=== PATIENT | female | born 1955 | race American Indian/Alaskan Native ===

== ENCOUNTER 2022-03-24 17:44 | Inpatient (IN) | payer MEDICARE ==
--- NOTE | 2022-03-24 18:28 | Emergency Department Report ---
ED Altered Mental Status HPI - General Chief Complaint: Altered Mental Status Stated Complaint: AMS Time Seen by Provider: 03/24/22 18:01 Source: patient, EMS Mode of arrival: Stretcher Limitations: Altered Mental Status - History of Present Illness Initial Comments: Patient is a 67-year-old female brought in [facility] for evaluation of altered mental status. She has history of schizophrenia and dementia. Daughter reportedly states that the last time she presented like this she had a UTI. - Related Data Home Medications Medication Instructions Recorded Confirmed Last Taken Acetaminophen [Mapap] 650 mg PO Q12H 03/25/22 03/25/22 Unknown Ferrous Sulfate [Iron 325 MG] 325 mg PO DAILY 03/25/22 03/25/22 Unknown Ibuprofen [Motrin] 800 mg PO Q4HR PRN 03/25/22 03/25/22 Unknown Lispro Insulin [HumaLOG] See Protocol SUB-Q ACHS 03/25/22 03/25/22 Unknown Metoprolol [Lopressor TAB] 50 mg PO BID 03/25/22 03/25/22 Unknown QUEtiapine [SEROquel] 100 mg PO QHS 03/25/22 03/25/22 Unknown amLODIPine [Norvasc] 5 mg PO DAILY 03/25/22 03/25/22 Unknown cloNIDine [Catapres] 0.1 mg PO Q8H PRN 03/25/22 03/25/22 Unknown diphenhydrAMINE [Benadryl CAP] 50 mg PO Q4H PRN 03/25/22 03/25/22 Unknown haloperidoL [Haloperidol] 5 mg PO Q4H PRN 03/25/22 03/25/22 Unknown hydroCHLOROthiazide [HCTZ] 25 mg PO QDAY 03/25/22 03/25/22 Unknown metFORMIN [Glucophage] 500 mg PO BID 03/25/22 03/25/22 Unknown risperiDONE [RisperDAL] 1 mg PO BID 03/25/22 03/25/22 Unknown Allergies Allergy/AdvReac Type Severity Reaction Status Date / Time No Known Allergies Allergy Unverified 03/24/22 17:59 ED Review of Systems ROS: Stated complaint: AMS Other details as noted in HPI Comment: Unobtainable due to pts medical conditions ED Past Medical Hx - Medications Home Medications: Home Medications Medication Instructions Recorded Confirmed Last Taken Type Acetaminophen [Mapap] 650 mg PO Q12H 03/25/22 03/25/22 Unknown History Ferrous Sulfate [Iron 325 MG] 325 mg PO DAILY 03/25/22 03/25/22 Unknown History Ibuprofen [Motrin] 800 mg PO Q4HR PRN 03/25/22 03/25/22 Unknown History Lispro Insulin [HumaLOG] See Protocol SUB-Q ACHS 03/25/22 03/25/22 Unknown History Metoprolol [Lopressor TAB] 50 mg PO BID 03/25/22 03/25/22 Unknown History QUEtiapine [SEROquel] 100 mg PO QHS 03/25/22 03/25/22 Unknown History amLODIPine [Norvasc] 5 mg PO DAILY 03/25/22 03/25/22 Unknown History cloNIDine [Catapres] 0.1 mg PO Q8H PRN 03/25/22 03/25/22 Unknown History diphenhydrAMINE [Benadryl CAP] 50 mg PO Q4H PRN 03/25/22 03/25/22 Unknown History haloperidoL [Haloperidol] 5 mg PO Q4H PRN 03/25/22 03/25/22 Unknown History hydroCHLOROthiazide [HCTZ] 25 mg PO QDAY 03/25/22 03/25/22 Unknown History metFORMIN [Glucophage] 500 mg PO BID 03/25/22 03/25/22 Unknown History risperiDONE [RisperDAL] 1 mg PO BID 03/25/22 03/25/22 Unknown History ED Physical Exam - General Limitations: Altered Mental Status General appearance: other (Patient is altered) - Head Head exam: Present: atraumatic, normocephalic - Neck Neck exam: Present: normal inspection - Respiratory Respiratory exam: Present: normal lung sounds bilaterally. Absent: respiratory distress - Cardiovascular Cardiovascular Exam: Present: normal rhythm, tachycardia, normal heart sounds - GI/Abdominal GI/Abdominal exam: Present: soft. Absent: distended, tenderness - Rectal Rectal exam: Present: deferred - Neurological Exam Neurological exam: Present: altered - Skin Skin exam: Present: warm, dry, intact, normal color ED Course Vital Signs 03/24/22 03/24/22 03/24/22 14:49 15:00 17:44 Temperature 97.7 F Pulse Rate 78 73 148 H Respiratory 21 20 16 Rate Blood Pressure 171/87 171/87 Blood Pressure 158/101 [Left] O2 Sat by Pulse 96 98 98 Oximetry 03/24/22 03/24/22 03/24/22 18:49 19:00 19:01 Temperature 100.4 F H Pulse Rate 122 H 123 H 126 H Respiratory 21 18 15 Rate Blood Pressure 171/87 165/93 Blood Pressure 169/93 [Left] O2 Sat by Pulse 99 88 Oximetry 03/24/22 03/24/22 03/24/22 19:15 19:30 19:45 Temperature Pulse Rate 112 H 111 H 121 H Respiratory 19 17 22 Rate Blood Pressure 173/112 153/77 172/96 Blood Pressure [Left] O2 Sat by Pulse 100 97 99 Oximetry 03/24/22 03/24/22 03/24/22 20:01 20:15 20:30 Temperature Pulse Rate 123 H 121 H 115 H Respiratory 25 H 27 H 25 H Rate Blood Pressure 180/79 180/79 193/105 Blood Pressure [Left] O2 Sat by Pulse 99 97 96 Oximetry 03/24/22 03/24/22 03/24/22 20:45 21:00 21:14 Temperature Pulse Rate 112 H 111 H 105 H Respiratory 22 17 18 Rate Blood Pressure 209/103 180/79 Blood Pressure 207/65 180/79 [Left] O2 Sat by Pulse 97 95 99 Oximetry 03/24/22 03/24/22 03/24/22 21:15 21:31 21:45 Temperature Pulse Rate 115 H 129 H 136 H Respiratory 14 20 28 H Rate Blood Pressure 169/76 147/52 137/62 Blood Pressure [Left] O2 Sat by Pulse 96 93 89 Oximetry 03/24/22 03/24/22 03/24/22 21:51 22:00 22:01 Temperature 100 F H Pulse Rate 119 H 127 H 117 H Respiratory 18 30 H 26 H Rate Blood Pressure 146/80 146/80 Blood Pressure 137/62 [Left] O2 Sat by Pulse 99 96 97 Oximetry 03/24/22 03/24/22 03/24/22 22:15 22:30 22:45 Temperature Pulse Rate 114 H 114 H 129 H Respiratory 30 H 32 H 26 H Rate Blood Pressure 150/84 193/99 182/89 Blood Pressure [Left] O2 Sat by Pulse 85 97 97 Oximetry 03/24/22 03/24/22 03/24/22 23:00 23:15 23:26 Temperature Pulse Rate 116 H 116 H 122 H Respiratory 21 27 H Rate Blood Pressure 156/74 138/81 138/67 Blood Pressure [Left] O2 Sat by Pulse 97 97 Oximetry 03/24/22 03/24/22 03/25/22 23:31 23:45 00:01 Temperature Pulse Rate 105 H 126 H 128 H Respiratory 18 28 H 20 Rate Blood Pressure 138/67 172/95 160/78 Blood Pressure [Left] O2 Sat by Pulse 97 99 99 Oximetry 03/25/22 03/25/22 03/25/22 00:15 00:31 00:45 Temperature Pulse Rate 110 H 117 H 111 H Respiratory 21 24 21 Rate Blood Pressure 171/69 186/72 175/93 Blood Pressure [Left] O2 Sat by Pulse 98 Oximetry 03/25/22 03/25/22 03/25/22 01:01 01:15 01:30 Temperature Pulse Rate 119 H 124 H 128 H Respiratory 21 21 21 Rate Blood Pressure 148/84 171/90 173/86 Blood Pressure [Left] O2 Sat by Pulse Oximetry 03/25/22 03/25/22 03/25/22 01:45 02:01 02:08 Temperature Pulse Rate 107 H 135 H Respiratory 25 H Rate Blood Pressure 162/103 134/80 120/74 Blood Pressure [Left] O2 Sat by Pulse 94 94 Oximetry 03/25/22 03/25/22 03/25/22 02:15 02:30 02:45 Temperature Pulse Rate 100 H 100 H 97 H Respiratory 17 18 17 Rate Blood Pressure 121/56 120/60 121/58 Blood Pressure [Left] O2 Sat by Pulse 95 91 92 Oximetry 03/25/22 03/25/22 03/25/22 03:00 03:16 03:30 Temperature Pulse Rate 103 H 94 H 94 H Respiratory 16 18 15 Rate Blood Pressure 114/67 122/59 Blood Pressure [Left] O2 Sat by Pulse 91 91 93 Oximetry 03/25/22 03/25/22 03/25/22 03:45 04:00 04:15 Temperature Pulse Rate 90 98 H 94 H Respiratory 14 17 15 Rate Blood Pressure 112/66 127/74 128/67 Blood Pressure [Left] O2 Sat by Pulse 92 92 93 Oximetry 03/25/22 03/25/22 03/25/22 04:31 04:45 05:00 Temperature Pulse Rate 97 H 96 H 96 H Respiratory 14 16 20 Rate Blood Pressure 145/77 157/76 128/72 Blood Pressure [Left] O2 Sat by Pulse 92 90 89 Oximetry 03/25/22 03/25/22 03/25/22 05:15 05:30 05:45 Temperature Pulse Rate 106 H 99 H 91 H Respiratory 21 15 17 Rate Blood Pressure 143/71 130/76 124/68 Blood Pressure [Left] O2 Sat by Pulse 89 92 92 Oximetry 03/25/22 03/25/22 03/25/22 06:00 06:15 06:30 Temperature Pulse Rate 93 H 98 H 94 H Respiratory 15 14 16 Rate Blood Pressure 131/68 133/61 127/64 Blood Pressure [Left] O2 Sat by Pulse 91 Oximetry 03/25/22 03/25/22 03/25/22 06:45 07:00 07:11 Temperature Pulse Rate 112 H 98 H 96 H Respiratory 20 16 18 Rate Blood Pressure 121/62 134/68 134/68 Blood Pressure [Left] O2 Sat by Pulse Oximetry 03/25/22 03/25/22 03/25/22 07:21 07:30 07:41 Temperature Pulse Rate 97 H 102 H 90 Respiratory 15 14 16 Rate Blood Pressure 142/70 149/75 149/75 Blood Pressure [Left] O2 Sat by Pulse Oximetry 03/25/22 03/25/22 03/25/22 07:51 08:00 08:33 Temperature Pulse Rate 96 H 97 H Respiratory 10 L 12 Rate Blood Pressure 148/80 161/71 161/71 Blood Pressure [Left] O2 Sat by Pulse 90 Oximetry 03/25/22 08:39 Temperature 98.6 F Pulse Rate Respiratory 18 Rate Blood Pressure 195/87 Blood Pressure [Left] O2 Sat by Pulse Oximetry - Lab Data Result diagrams: 03/26/22 04:47 03/27/22 04:38 Lab Results 03/24/22 03/24/22 03/24/22 Range/Units 18:58 18:58 Unknown WBC 11.2 H (4.5-11.0) K/mm3 RBC 4.03 (3.65-5.03) M/mm3 Hgb 8.8 L (10.1-14.3) gm/dl Hct 27.7 L (30.3-42.9) % MCV 69 L (79-97) fl MCH 22 L (28-32) pg MCHC 32 (30-34) % RDW 18.2 H (13.2-15.2) % Plt Count 343 (140-440) K/mm3 Lymph % (Auto) 12.0 L (13.4-35.0) % [place] % (Auto) 9.5 H (0.0-7.3) % Eos % (Auto) 0.3 (0.0-4.3) % Baso % (Auto) 0.4 (0.0-1.8) % Lymph # (Auto) 1.4 (1.2-5.4) K/mm3 [place] # (Auto) 1.1 H (0.0-0.8) K/mm3 Eos # (Auto) 0.0 (0.0-0.4) K/mm3 Baso # (Auto) 0.0 (0.0-0.1) K/mm3 Seg Neutrophils % 77.8 H (40.0-70.0) % Seg Neutrophils # 8.7 H (1.8-7.7) K/mm3 Sodium 143 (137-145) mmol/L Potassium 4.2 (3.6-5.0) mmol/L Chloride 104.2 (98-107) mmol/L Carbon Dioxide 22 (22-30) mmol/L Anion Gap 21 mmol/L BUN 38 H (7-17) mg/dL Creatinine 1.0 (0.6-1.2) mg/dL Estimated GFR 55 ml/min BUN/Creatinine Ratio 38 % Glucose 143 H (65-100) mg/dL Calcium 9.2 (8.4-10.2) mg/dL Total Bilirubin 0.30 (0.1-1.2) mg/dL Direct Bilirubin < 0.2 (0-0.2) mg/dL Indirect Bilirubin 0.1 mg/dL AST 32 (5-40) units/L ALT 16 (7-56) units/L Alkaline Phosphatase 81 (35-129) units/L Total Protein 6.8 (6.3-8.2) g/dL Albumin 3.3 L (3.9-5) g/dL Albumin/Globulin Ratio 0.9 % Urine Color Colorless (Yellow) Urine Turbidity Clear (Clear) Urine pH 5.0 (5.0-7.0) Ur Specific [place] 1.025 (1.003-1.030) Urine Protein 30 mg/dl (Negative) mg/dL Urine Glucose (UA) Negative (Negative) mg/dL Urine Ketones Negative (Negative) mg/dL Urine Blood Negative (Negative) Urine Nitrite Negative (Negative) Urine Bilirubin Negative (Negative) Urine Urobilinogen 0.2 (<2.0) mg/dL Ur Leukocyte Esterase 75 (Negative) Urine WBC (Auto) < 1.0 (0.0-6.0) /HPF Urine RBC (Auto) < 1.0 (0.0-6.0) /HPF Urine Bacteria (Auto) 1+ (Negative) /HPF - Medical Decision Making Labs reviewed. Patient given IV diltiazem for A. fib with RVR. She was also placed on an infusion for rate control. Will admit to hospitalist. Critical care attestation.: If time is entered above; I have spent that time in minutes in the direct care of this critically ill patient, excluding procedure time. ED Disposition Clinical Impression: Atrial fibrillation with RVR Disposition: 09 ADMITTED INPATIENT Is pt being admited?: Yes Condition: Stable
[2022-03-24 19:08] LABS: Basophils % (Auto) 0.4 % (0.0-1.8); Eosinophils % (Auto) 0.3 % (0.0-4.3); Hematocrit 27.7 % (30.3-42.9); Hemoglobin 8.8 gm/dl (10.1-14.3); Lymphocytes # (Auto) 1.4 K/mm3 (1.2-5.4); Mean Corpuscular HGB Conc 32 % (30-34); Monocytes # (Auto) 1.1 K/mm3 (0.0-0.8); Monocytes % (Auto) 9.5 % (0.0-7.3); Platelet Count 343 K/mm3 (140-440); Red Blood Count 4.03 M/mm3 (3.65-5.03); Red Cell Distribution Width 18.2 % (13.2-15.2)
[2022-03-24 19:10] LABS: Mean Corpuscular Volume 69 fl (79-97)
[2022-03-24 19:35] LABS: Alanine Aminotransferase 16 units/L (7-56); Albumin 3.3 g/dL (3.9-5); BUN/Creatinine Ratio 38; Blood Urea Nitrogen 38 mg/dL (7-17); Calcium 9.2 mg/dL (8.4-10.2); Hemolysis Index 58
[2022-03-24 19:48] LABS: Bilirubin,Direct < 0.2 mg/dL (0-0.2)
[2022-03-24 19:52] LABS: Bilirubin,Urine Negative (Negative); Blood,Urine Negative (Negative); Color,Urine Colorless (Yellow)
[2022-03-24 19:53] LABS: Urobilinogen,Urine 0.2 mg/dL (<2.0)
[2022-03-24 19:55] LABS: Bacteria,Urine 1+ /HPF (Negative); WBC,Urine < 1.0 /HPF (0.0-6.0)
[2022-03-24 20:02] LABS: RBC,Urine < 1.0 /HPF (0.0-6.0)
[2022-03-24] MEDS ORDERED: ACETAMINOPHEN 650 MG RECT SUPP PR ONE ×2 (20:11→22:57)
[2022-03-24] MEDS ORDERED: SODIUM CHLORIDE 0.9% 1000 ML 1,000 ML IV ONE ×2 (20:46→22:01)
[2022-03-24] MEDS ORDERED: hydrALAZINE 20 MG/1 ML INJ IV ONE (20:54)
--- NOTE | 2022-03-24 21:46 | XRay Report ---
CHEST 1 VIEW INDICATION: fever. COMPARISON: None. FINDINGS: Support devices: None. Heart: Mildly enlarged. Lungs/Pleura: No acute pulmonary or pleural findings. IMPRESSION: 1. No acute findings. Signer Name: Obi Borrego MD Signed: 03/24/2022 9:42 PM Workstation Name: [id number]
[2022-03-24] MEDS ORDERED: dilTIAZem 25 MG/5 ML INJ IV ONE (23:13)
[2022-03-25] MEDS ORDERED: MORPHINE 4 MG/1 ML INJ IV ONE (00:05)
[2022-03-25] MEDS ORDERED: ONDANSETRON 4 MG/2 ML INJ IV PRN (00:47)
[2022-03-25] MEDS ORDERED: MORPHINE 4 MG/1 ML INJ IV PRN (00:47)
[2022-03-25] MEDS ORDERED: MAGNESIUM HYDROXIDE (MOM) ORAL LIQD UDC PO PRN (00:52)
[2022-03-25] MEDS ORDERED: cefTRIAXone/NS 1 GM/50 ML 1 GM/50 ML BAG IV SCH (01:00)
[2022-03-25] MEDS ORDERED: SODIUM CHLORIDE 0.9% 1000 ML 1,000 ML IV SCH (01:00)
--- NOTE | 2022-03-25 01:00 | History and Physical Report ---
History of Present Illness Date of examination: 03/25/22 Date of admission: 03/25/22 Chief complaint: Altered Mental Status History of present illness: 67-year-old -[place] female with significant history of dementia and schizophrenia resident of a long-term brought into the emergency room today by EMS for evaluation of changes in mental status. Most of the history was provided by the daughter who was by the bedside as patient is not able to give a good history at this time. Daughter indicates that patient has been having poor oral intake over the past few days. There has been no fever or chills, no nausea vomiting, no diarrhea, no hematuria or dysuria. Daughter also indicates that the last time patient presented this way, she had a UTI. Patient has also been having some pain and swelling in the left knee. No history of fall and no history of trauma to the left knee. Upon arrival in the emergency room, patient had a low-grade fever of 100.4 F. She was given Tylenol with good response. Work-up in the emergency room today, lab reveals mild leukocytosis of 11.2. Hemoglobin of 8.8 and hematocrit of 27.7. BUN of 38 and creatinine 1.0. Urinalysis significant for 75 leukocyte esterase. 1+ bacteria. Chest x-ray unremarkable. EKG showed A. fib with RVR. He was given an IV dose of bolus Cardizem and subsequently placed on a drip. Past History Past Medical History: other (H/O Schizophrenia,H/O Dementia) Past Surgical History: No surgical history Social history: no significant social history Family history: no significant family history Medications and Allergies Allergies Allergy/AdvReac Type Severity Reaction Status Date / Time No Known Allergies Allergy Unverified 03/24/22 17:59 Active Meds: Active Medications Acetaminophen (Acetaminophen 325 Mg Tab) 650 mg PO Q4H PRN PRN Reason: Pain MILD(1-3)/Fever >100.5/VILLANUEVA Heparin Sodium (Porcine) (Heparin 5,000 Unit/1 Ml Vial) 5,000 unit SUB-Q Q8HR [facility] Sodium Chloride (Nacl 0.9% 1000 Ml) 1,000 mls @ 125 mls/hr IV DIRECT [facility] Ceftriaxone Sodium (Rocephin/Ns 1 Gm/50 Ml) 1 gm in 50 mls @ 100 mls/hr IV Q24H [facility]; Protocol Magnesium Hydroxide (Magnesium Hydroxide (Mom) Oral Liqd Udc) 30 ml PO Q4H PRN PRN Reason: Constipation Morphine Sulfate (Morphine 2 Mg/1 Ml Inj) 2 mg IV Q4H PRN PRN Reason: Pain, Moderate (4-6) Morphine Sulfate (Morphine 4 Mg/1 Ml Inj) 4 mg IV Q4H PRN PRN Reason: Pain , Severe (7-10) Ondansetron HCl (Ondansetron 4 Mg/2 Ml Inj) 4 mg IV Q8H PRN PRN Reason: Nausea And Vomiting Sodium Chloride (Sodium Chloride 0.9% 10 Ml Flush Syringe) 10 ml IV BID [facility] Sodium Chloride (Sodium Chloride 0.9% 10 Ml Flush Syringe) 10 ml IV PRN PRN PRN Reason: LINE FLUSH Review of Systems ROS unobtainable: due to mental status Exam - Constitutional Vitals: Temp Pulse Resp BP Pulse Ox 100 F H 122 H 30 H 138/67 96 03/24/22 22:01 03/24/22 23:26 03/24/22 22:00 03/24/22 23:26 03/24/22 22:00 General appearance: Present: no acute distress, well-nourished - EENT Eyes: Present: PERRL, EOM intact. Absent: scleral icterus ENT: hearing intact, clear oral mucosa, dentition normal - Neck Neck: Present: supple, normal ROM - Respiratory Respiratory effort: normal Respiratory: bilateral: CTA - Cardiovascular Rhythm: regular Heart Sounds: Present: S1 & S2. Absent: gallop, systolic murmur, diastolic murmur, rub, click - Extremities Extremities: no ischemia, pulses intact, pulses symmetrical, No edema, normal temperature, normal color, Full ROM Extremity abnormal: tenderness (Left knee tenderness with Minimal swelling) Peripheral Pulses: within normal limits - Abdominal General gastrointestinal: Present: soft, non-tender, non-distended, normal bowel sounds. Absent: mass - Integumentary Integumentary: Present: clear, warm, dry, normal turgor. Absent: rash - Musculoskeletal Musculoskeletal: strength equal bilaterally - Psychiatric Psychiatric: cooperative - Neurologic Neurologic: CNII-XII intact, no focal deficits, moves all extremities Results - Labs CBC & Chem 7: 03/24/22 18:58 03/24/22 18:58 Labs: Abnormal lab results 03/24/22 03/24/22 Range/Units 18:58 18:58 WBC 11.2 H (4.5-11.0) K/mm3 Hgb 8.8 L (10.1-14.3) gm/dl Hct 27.7 L (30.3-42.9) % MCV 69 L (79-97) fl MCH 22 L (28-32) pg RDW 18.2 H (13.2-15.2) % Lymph % (Auto) 12.0 L (13.4-35.0) % [place] % (Auto) 9.5 H (0.0-7.3) % [place] # (Auto) 1.1 H (0.0-0.8) K/mm3 Seg Neutrophils % 77.8 H (40.0-70.0) % Seg Neutrophils # 8.7 H (1.8-7.7) K/mm3 BUN 38 H (7-17) mg/dL Glucose 143 H (65-100) mg/dL Albumin 3.3 L (3.9-5) g/dL Assessment and Plan Assessment: 1.Altered Mental Status 2.H/O Schizophrenia and Dementia 3.Fever- Possibly secondary to UTI 4.Dehydration 5.Afib. with RVR 6. Left knee swelling Plan: 1.Started on IV fluid normal saline. 2.Resume routine home medications 3.Placed on Empiric IV antibiotics 4.Will place on IV cardizem drip. We will request cardiology evaluation. 5. We will check x-ray of the left knee. Will place on IV analgesic medication as needed. DVT Prophylaxis: SQ Heparin Code Status: Full Code
[2022-03-25] MEDS ORDERED: dilTIAZem 25 MG/5 ML INJ IV ONE (01:52)
[2022-03-25] MEDS ORDERED: dilTIAZem 25 MG/5 ML INJ ONE (01:58)
--- NOTE | 2022-03-25 02:44 | XRay Report ---
Left knee, 4 views HISTORY: Pain and swelling COMPARISON: None FINDINGS: There is advanced tricompartmental osteoarthritis of the left knee with remodeling of the m edial tibial plateau, may reflect sequela of prior trauma or may be degenerative. No acute fracture o r malalignment. There is prominent chondrocalcinosis. Nonspecific moderate joint effusion. Signer Name: Magdi Mackay MD Signed: 03/25/2022 2:39 AM Workstation Name: [id number]
[2022-03-25] MEDS ORDERED: DEXTROSE 50% IN WATER (25GM) 50 ML SYRINGE IV PRN (10:26)
--- NOTE | 2022-03-25 10:38 | Event Note ---
Date: 03/25/22 Patient seen and examined at bedside. She reports not feeling well for a while and states "It's always something". Patient has no specific complaints. Vital signs, and labs reviewed. Rocephin stopped due to low suspicion for UTI. We will continue to monitor anticipate discharge back to care home tomorrow if patient remains stable.
--- NOTE | 2022-03-25 10:45 | Consultation ---
History of Present Illness Consult date: 03/25/22 Consult reason: atrial fibrillation History of present illness: 67-year-old female senior care resident with past medical history of dementia and schizophrenia presented today with altered mental status. Patient is currently alert and oriented x1 and is unable to provide any history. No family is available at bedside; thus, history is obtained from the medical record. Patient has reportedly been having poor p.o. intake for the last few days and had low-grade fever upon hospital presentation. No prior cardiac complaints reported. EKG on presentation reportedly showed atrial fibrillation with RVR. There is no EKG available in bedside chart or in EMR, and it is unclear to me whether this is an existing diagnosis. Patient was given IV diltiazem, and currently telemetry review shows sinus tachycardia at 110 bpm. Labs otherwise notable for hemoglobin 8.8. Past History Past Medical History: other (H/O Schizophrenia,H/O Dementia) Past Surgical History: No surgical history Social history: no significant social history Family history: no significant family history Medications and Allergies Allergies Allergy/AdvReac Type Severity Reaction Status Date / Time No Known Allergies Allergy Unverified 03/24/22 17:59 Active Meds: Active Medications Acetaminophen (Acetaminophen 325 Mg Tab) 650 mg PO Q4H PRN PRN Reason: Pain MILD(1-3)/Fever >100.5/[place] Dextrose (Dextrose 50% In Water (25gm) 50 Ml Syringe) 50 ml IV Q30MIN PRN; Protocol PRN Reason: Hypoglycemia Ferrous Sulfate (Ferrous Sulfate 325 Mg Tab) 325 mg PO QDAY [facility] Heparin Sodium (Porcine) (Heparin 5,000 Unit/1 Ml Vial) 5,000 unit SUB-Q Q8HR [facility] Sodium Chloride (Nacl 0.9% 1000 Ml) 1,000 mls @ 125 mls/hr IV DIRECT [facility] Insulin Human Lispro (Insulin Lispro 100 Unit/Ml) 0 unit SUB-Q ACHS SINCERE; Protocol Magnesium Hydroxide (Magnesium Hydroxide (Mom) Oral Liqd Udc) 30 ml PO Q4H PRN PRN Reason: Constipation Metoprolol Tartrate (Metoprolol Tartrate 50 Mg Tab) 50 mg PO BID [facility] Morphine Sulfate (Morphine 2 Mg/1 Ml Inj) 2 mg IV Q4H PRN PRN Reason: Pain, Moderate (4-6) Morphine Sulfate (Morphine 4 Mg/1 Ml Inj) 4 mg IV Q4H PRN PRN Reason: Pain , Severe (7-10) Ondansetron HCl (Ondansetron 4 Mg/2 Ml Inj) 4 mg IV Q8H PRN PRN Reason: Nausea And Vomiting Quetiapine Fumarate (Quetiapine 100 Mg Tab) 100 mg PO QHS [facility] Risperidone (Risperidone 1 Mg Tab) 1 mg PO BID [facility] Sodium Chloride (Sodium Chloride 0.9% 10 Ml Flush Syringe) 10 ml IV BID [facility] Sodium Chloride (Sodium Chloride 0.9% 10 Ml Flush Syringe) 10 ml IV PRN PRN PRN Reason: LINE FLUSH Physical Examination Vital Signs Pulse Resp BP Pulse Ox 78 21 171/87 96 03/24/22 14:49 03/24/22 14:49 03/24/22 14:49 03/24/22 14:49 General appearance: no acute distress HEENT: Positive: EOMI Neck: Positive: neck supple Cardiac: Positive: Regular Rhythm, Tachycardia Lungs: Positive: clear to auscultation Neuro: Positive: Grossly Intact, Other (A&O x1) Abdomen: Positive: Unremarkable Skin: Positive: Clear Extremities: Absent: edema Results 03/24/22 18:58 03/24/22 18:58 Cardiac Enzymes 03/24/22 Range/Units 18:58 AST 32 (5-40) units/L CBC 03/24/22 Range/Units 18:58 WBC 11.2 H (4.5-11.0) K/mm3 RBC 4.03 (3.65-5.03) M/mm3 Hgb 8.8 L (10.1-14.3) gm/dl Hct 27.7 L (30.3-42.9) % Plt Count 343 (140-440) K/mm3 Lymph # (Auto) 1.4 (1.2-5.4) K/mm3 [place] # (Auto) 1.1 H (0.0-0.8) K/mm3 Eos # (Auto) 0.0 (0.0-0.4) K/mm3 Baso # (Auto) 0.0 (0.0-0.1) K/mm3 Comprehensive Metabolic Panel 03/24/22 Range/Units 18:58 Sodium 143 (137-145) mmol/L Potassium 4.2 (3.6-5.0) mmol/L Chloride 104.2 (98-107) mmol/L Carbon Dioxide 22 (22-30) mmol/L BUN 38 H (7-17) mg/dL Creatinine 1.0 (0.6-1.2) mg/dL Glucose 143 H (65-100) mg/dL Calcium 9.2 (8.4-10.2) mg/dL Direct Bilirubin < 0.2 (0-0.2) mg/dL Indirect Bilirubin 0.1 mg/dL AST 32 (5-40) units/L ALT 16 (7-56) units/L Alkaline Phosphatase 81 (35-129) units/L Total Protein 6.8 (6.3-8.2) g/dL Albumin 3.3 L (3.9-5) g/dL Assessment and Plan #Paroxysmal atrial fibrillationunclear if new diagnosis #Altered mental status #Fever / possible UTI #Anemia #Dementia #Schizophrenia Patient currently is in sinus rhythm on telemetry review. We will continue metoprolol for rate control. [id number] is at least 2; however, it is unclear whether she would be suitable candidate for long-term anticoagulation given mental status and anemia. We will need to reassess as clinical status improves and discuss further with family. If she is ultimately deemed a poor candidate for oral AC, then would start ASA. Await echocardiogram.
[2022-03-25] MEDS: risperiDONE 1 MG TAB PO SCH ×2 (11:48→21:18)
[2022-03-25] MEDS: HEPARIN 5,000 UNIT/1 ML VIAL SUB-Q SCH ×3 (11:48→21:18)
[2022-03-25] MEDS: METOPROLOL TARTRATE 50 MG TAB PO SCH ×2 (11:48→21:17)
[2022-03-25] MEDS: INSULIN LISPRO 100 UNIT/ML SUB-Q SCH ×2 (11:51→17:14)
[2022-03-25] MEDS ORDERED: cloNIDine 0.1 MG TAB PO PRN (11:52)
[2022-03-25] MEDS: amLODIPine 5 MG TAB PO SCH (12:55)
[2022-03-25] MEDS: hydroCHLOROthiazide 25 MG TAB PO SCH (12:56)
[2022-03-25] MEDS: MORPHINE 2 MG/1 ML INJ IV PRN (17:13)
[2022-03-25] MEDS: QUEtiapine 100 MG TAB PO SCH (21:18)
[2022-03-26 05:18] LABS: Basophils % (Auto) 0.4 % (0.0-1.8); Eosinophils % (Auto) 0.3 % (0.0-4.3); Hematocrit 23.6 % (30.3-42.9); Hemoglobin 7.6 gm/dl (10.1-14.3); Lymphocytes # (Auto) 1.5 K/mm3 (1.2-5.4); Lymphocytes % (Auto) 17.1 % (13.4-35.0); Mean Corpuscular HGB Conc 32 % (30-34); Monocytes # (Auto) 0.8 K/mm3 (0.0-0.8); Monocytes % (Auto) 9.6 % (0.0-7.3); Platelet Count 311 K/mm3 (140-440); Red Blood Count 3.48 M/mm3 (3.65-5.03)
[2022-03-26 05:29] LABS: BUN/Creatinine Ratio 33; Blood Urea Nitrogen 30 mg/dL (7-17); Calcium 8.8 mg/dL (8.4-10.2); Hemolysis Index 1
[2022-03-26 05:36] LABS: Mean Corpuscular Volume 68 fl (79-97)
[2022-03-26] MEDS: HEPARIN 5,000 UNIT/1 ML VIAL SUB-Q SCH ×3 (06:12→22:13)
[2022-03-26] MEDS: INSULIN LISPRO 100 UNIT/ML SUB-Q SCH ×5 (06:41→23:00)
[2022-03-26] MEDS: risperiDONE 1 MG TAB PO SCH (09:49)
[2022-03-26] MEDS: amLODIPine 5 MG TAB PO SCH (09:49)
[2022-03-26] MEDS: POTASSIUM CHLORIDE ER 20 MEQ TAB PO SCH ×2 (09:49→10:54)
[2022-03-26] MEDS: hydroCHLOROthiazide 25 MG TAB PO SCH (09:49)
[2022-03-26] MEDS: FERROUS SULFATE 325 MG TAB PO SCH (09:50)
[2022-03-26] MEDS: METOPROLOL TARTRATE 50 MG TAB PO SCH ×2 (09:50→22:13)
--- NOTE | 2022-03-26 10:16 | Electrocardiograph Report ---
[facility] Test Date: 2022-03-24 Test Time: 18:50:56 Pat Name: KRIS JONES Department: Room: A457 1 Gender: F Ophthalmic Medical Assistant: 0000 : 1955 Requested By: GILSON BARON Order Number: [id number] Reading MD: Yessica Degroot Measurements Intervals [place] Rate: 124 P: 55 GA: 186 QRS: 7 QRSD: 97 T: 165 QT: 332 QTc: 478 Interpretive Statements Multifocal atrial tachycardia Probable LVH with secondary repol abnrm No previous ECG available for comparison Electronically Signed On 03-26-2022 10:15:49 EDT by Yessica Degroot
--- NOTE | 2022-03-26 12:29 | Progress Note ---
Assessment and Plan - Patient Problems (1) Paroxysmal atrial fibrillation Current Visit: Yes Status: Acute Plan to address problem: Patient has continued, paroxysmal atrial fibrillation, I will add amiodarone to her regimen for atrial fibrillation suppression. Due to persistent severe anemia, hematocrit was 27, currently 23, patient is at high risk for oral anticoagulation. Subjective Date of service: 03/26/22 Principal diagnosis: Altered mental status, rapid atrial fibrillation Interval history: Patient is comfortable in no acute distress, on monitor and storage bin tender, she has intermittent, short bursts of paroxysmal atrial fibrillation, paroxysmal atrial tachycardia. Objective Vital Signs Temp Pulse Resp BP Pulse Ox 03/26/22 11:05 98.3 F 111 H 18 157/53 98 03/26/22 07:27 18 98 03/26/22 07:00 98.7 F 94 H 19 122/61 94 03/26/22 06:59 99 H 96 03/26/22 03:29 99.8 F H 111 H 18 120/74 95 03/26/22 02:00 102 H 03/25/22 23:07 98.9 F 100 H 16 174/100 100 03/25/22 21:17 99 H 186/85 03/25/22 21:00 18 98 03/25/22 19:20 99 H 95 03/25/22 19:19 99.0 F 20 186/85 03/25/22 18:00 101 H 03/25/22 17:07 98.4 F 74 18 143/81 100 - Physical Examination General: No Apparent Distress, Other (Patient appears lethargic and chronically ill) HEENT: Positive: EOMI Neck: Positive: neck supple Cardiac: Positive: irregularly irregular Lungs: Positive: Decreased Breath Sounds Neuro: Positive: Weakness (Generalized lethargy) Abdomen: Positive: Soft Skin: Positive: Clear Extremities: Absent: edema - Labs and Meds CBC 03/26/22 Range/Units 04:47 WBC 8.7 (4.5-11.0) K/mm3 RBC 3.48 L (3.65-5.03) M/mm3 Hgb 7.6 L (10.1-14.3) gm/dl Hct 23.6 L (30.3-42.9) % Plt Count 311 (140-440) K/mm3 Lymph # (Auto) 1.5 (1.2-5.4) K/mm3 [place] # (Auto) 0.8 (0.0-0.8) K/mm3 Eos # (Auto) 0.0 (0.0-0.4) K/mm3 Baso # (Auto) 0.0 (0.0-0.1) K/mm3 Comprehensive Metabolic Panel 03/26/22 Range/Units 04:47 Sodium 141 (137-145) mmol/L Potassium 3.0 L D (3.6-5.0) mmol/L Chloride 105.1 (98-107) mmol/L Carbon Dioxide 23 (22-30) mmol/L BUN 30 H (7-17) mg/dL Creatinine 0.9 (0.6-1.2) mg/dL Glucose 133 H (65-100) mg/dL Calcium 8.8 (8.4-10.2) mg/dL
--- NOTE | 2022-03-26 13:07 | Progress Note ---
Assessment and Plan Assessment and plan: #Acute encephalopathy #H/O Schizophrenia and Dementia -patient not at baseline according to family -CT head not ordered in ED, will order now -UA not suggestive of UTI, antibiotics discontinued -CXR negative for acute findings -will continue riseridone and seroquel at home dose #Atrial fibrillation with RVR -Status post Cardene drip -Amiodarone drip started by cardiology, continue metoprolol -Echocardiogram shows normal ejection fraction -Unclear if this is persistent versus paroxysmal; anticoagulation held due to high risk of bleed with patient anemia -Cardiology following, assistance appreciated #Hypokalemia -Potassium 3.0, supplementation via Dobbhoff ordered -We will repeat level in @1600 -will continue to monitor #Poor PO intake #Volume depletion-improved -patient refusing to eat at NH and refusing medications -dobhoff insertion ordered, will start TF for now -ST evaluation ordered to evaluate for swallowing -will discontinue IVFs #Hypertension -Continue metoprolol and amlodipine at home doses #Osteoarthritis -X-ray of left knee suggestive of arthritis -Supportive care #Fever- resolved -patient without WBC, and had low grade fever 100.4 -no further fever over the last 24 hrs #UTI ruled out History Interval history: No acute events overnight. Patient sleepy at time of interview. She denies chest pain, shortness of breath. She has no complaints at this time. When the nurse elevated the head of the bed, patient started to groan. Hospitalist Physical - Physical exam Narrative exam: GENERAL: Well-developed well-nourished. In no acute distress. HEENT: Normocephalic. Atraumatic. NECK: Supple. CHEST/LUNGS: CTAB on room air HEART/CARDIOVASCULAR: Irregularly irregular rhythm. No murmur, rubs or gallops appreciated. ABDOMEN: +BS. NT/ND. SKIN: No rashes noted. NEURO: No focal motor deficit. Follows all commands. MUSCULOSKELETAL: No joint effusion EXTREMITIES: No cyanosis, clubbing. L knee swelling. PSYCH: Cooperative. - Constitutional Vitals: Temp Pulse Resp BP Pulse Ox 98.3 F 111 H 18 157/53 98 03/26/22 11:05 03/26/22 11:05 03/26/22 11:05 03/26/22 11:05 03/26/22 11:05 General appearance: Present: no acute distress Results - Labs CBC & Chem 7: 03/26/22 04:47 03/26/22 04:47 Labs: Laboratory Last Values WBC 8.7 K/mm3 (4.5-11.0) 03/26/22 04:47 RBC 3.48 M/mm3 (3.65-5.03) L 03/26/22 04:47 Hgb 7.6 gm/dl (10.1-14.3) L 03/26/22 04:47 Hct 23.6 % (30.3-42.9) L 03/26/22 04:47 MCV 68 fl (79-97) L 03/26/22 04:47 MCH 22 pg (28-32) L 03/26/22 04:47 MCHC 32 % (30-34) 03/26/22 04:47 RDW 18.0 % (13.2-15.2) H 03/26/22 04:47 Plt Count 311 K/mm3 (140-440) 03/26/22 04:47 Lymph % (Auto) 17.1 % (13.4-35.0) 03/26/22 04:47 [place] % (Auto) 9.6 % (0.0-7.3) H 03/26/22 04:47 Eos % (Auto) 0.3 % (0.0-4.3) 03/26/22 04:47 Baso % (Auto) 0.4 % (0.0-1.8) 03/26/22 04:47 Lymph # (Auto) 1.5 K/mm3 (1.2-5.4) 03/26/22 04:47 [place] # (Auto) 0.8 K/mm3 (0.0-0.8) 03/26/22 04:47 Eos # (Auto) 0.0 K/mm3 (0.0-0.4) 03/26/22 04:47 Baso # (Auto) 0.0 K/mm3 (0.0-0.1) 03/26/22 04:47 Seg Neutrophils % 72.6 % (40.0-70.0) H 03/26/22 04:47 Seg Neutrophils # 6.3 K/mm3 (1.8-7.7) 03/26/22 04:47 Sodium 141 mmol/L (137-145) 03/26/22 04:47 Potassium 3.0 mmol/L (3.6-5.0) L D 03/26/22 04:47 Chloride 105.1 mmol/L (98-107) 03/26/22 04:47 Carbon Dioxide 23 mmol/L (22-30) 03/26/22 04:47 Anion Gap 16 mmol/L 03/26/22 04:47 BUN 30 mg/dL (7-17) H 03/26/22 04:47 Creatinine 0.9 mg/dL (0.6-1.2) 03/26/22 04:47 Estimated GFR > 60 ml/min 03/26/22 04:47 BUN/Creatinine Ratio 33 % 03/26/22 04:47 Glucose 133 mg/dL (65-100) H 03/26/22 04:47 POC Glucose 123 mg/dL (70-105) H 03/26/22 11:55 Calcium 8.8 mg/dL (8.4-10.2) 03/26/22 04:47 Total Bilirubin 0.30 mg/dL (0.1-1.2) 03/24/22 18:58 Direct Bilirubin < 0.2 mg/dL (0-0.2) 03/24/22 18:58 Indirect Bilirubin 0.1 mg/dL 03/24/22 18:58 AST 32 units/L (5-40) 03/24/22 18:58 ALT 16 units/L (7-56) 03/24/22 18:58 Alkaline Phosphatase 81 units/L (35-129) 03/24/22 18:58 Total Protein 6.8 g/dL (6.3-8.2) 03/24/22 18:58 Albumin 3.3 g/dL (3.9-5) L 03/24/22 18:58 Albumin/Globulin Ratio 0.9 % 03/24/22 18:58 Urine Color Colorless (Yellow) 03/24/22 Unknown Urine Turbidity Clear (Clear) 03/24/22 Unknown Urine pH 5.0 (5.0-7.0) 03/24/22 Unknown Ur Specific [place] 1.025 (1.003-1.030) 03/24/22 Unknown Urine Protein 30 mg/dl mg/dL (Negative) 03/24/22 Unknown Urine Glucose (UA) Negative mg/dL (Negative) 03/24/22 Unknown Urine Ketones Negative mg/dL (Negative) 03/24/22 Unknown Urine Blood Negative (Negative) 03/24/22 Unknown Urine Nitrite Negative (Negative) 03/24/22 Unknown Urine Bilirubin Negative (Negative) 03/24/22 Unknown Urine Urobilinogen 0.2 mg/dL (<2.0) 03/24/22 Unknown Ur Leukocyte Esterase 75 (Negative) 03/24/22 Unknown Urine WBC (Auto) < 1.0 /HPF (0.0-6.0) 03/24/22 Unknown Urine RBC (Auto) < 1.0 /HPF (0.0-6.0) 03/24/22 Unknown Urine Bacteria (Auto) 1+ /HPF (Negative) 03/24/22 Unknown [place]/IV: Voiding Method External Female Catheter Active Medications - Current Medications Current Medications: Generic Name Dose Route Start Last Admin Trade Name Freq PRN Reason Stop Dose Admin Acetaminophen 650 mg 03/25/22 00:47 Acetaminophen 325 Mg Tab PO Q4H PRN Pain MILD(1-3)/Fever >100.5/VILLANUEVA Amiodarone HCl 200 mg 03/26/22 13:00 Amiodarone 200 Mg Tab PO BID SINCERE Amlodipine Besylate 5 mg 03/25/22 12:00 03/26/22 09:49 Amlodipine 5 Mg Tab PO 5 mg DAILY SINCERE Administration Clonidine HCl 0.1 mg 03/25/22 11:52 Clonidine 0.1 Mg Tab PO Q8H PRN Hypertension Dextrose 50 ml 03/25/22 10:26 Dextrose 50% In Water (25gm) 50 Ml Syringe IV Q30MIN PRN Hypoglycemia Protocol Ferrous Sulfate 325 mg 03/26/22 10:00 03/26/22 09:50 Ferrous Sulfate 325 Mg Tab PO 325 mg QDAY SINCERE Administration Heparin Sodium (Porcine) 5,000 unit 03/25/22 06:00 03/26/22 06:12 Heparin 5,000 Unit/1 Ml Vial SUB-Q 5,000 unit Q8HR SINCERE Administration Hydrochlorothiazide 25 mg 03/25/22 12:00 03/26/22 09:49 Hydrochlorothiazide 25 Mg Tab PO 25 mg QDAY SINCERE Administration Amiodarone HCl 150 mg/ 103 mls @ 600 mls/hr 03/26/22 12:26 Dextrose IV 03/26/22 12:36 ONCE ONE Insulin Human Lispro 0 unit 03/25/22 11:30 03/26/22 12:09 Insulin Lispro 100 Unit/Ml SUB-Q Not Given ACHS SINCERE Protocol Magnesium Hydroxide 30 ml 03/25/22 00:52 Magnesium Hydroxide (Mom) Oral Liqd Udc PO Q4H PRN Constipation Metoprolol Tartrate 50 mg 03/25/22 11:00 03/26/22 09:50 Metoprolol Tartrate 50 Mg Tab PO 50 mg BID SINCERE Administration Morphine Sulfate 2 mg 03/25/22 00:47 03/25/22 17:13 Morphine 2 Mg/1 Ml Inj IV 2 mg Q4H PRN Administration Pain, Moderate (4-6) Morphine Sulfate 4 mg 03/25/22 00:47 Morphine 4 Mg/1 Ml Inj IV Q4H PRN Pain , Severe (7-10) Ondansetron HCl 4 mg 03/25/22 00:47 Ondansetron 4 Mg/2 Ml Inj IV Q8H PRN Nausea And Vomiting Potassium Chloride 40 meq 03/26/22 12:00 Potassium Chloride 20 Meq Packet FEEDTUBE 03/26/22 16:01 Q4H SINCERE Quetiapine Fumarate 100 mg 03/25/22 22:00 03/25/22 21:18 Quetiapine 100 Mg Tab PO 100 mg QHS SINCERE Administration Risperidone 1 mg 03/25/22 11:00 03/26/22 09:49 Risperidone 1 Mg Tab PO 1 mg BID SINCERE Administration Sodium Chloride 10 ml 03/25/22 10:00 03/26/22 09:50 Sodium Chloride 0.9% 10 Ml Flush Syringe IV 10 ml BID SINCERE Administration Sodium Chloride 10 ml 03/25/22 00:47 Sodium Chloride 0.9% 10 Ml Flush Syringe IV PRN PRN LINE FLUSH Nutrition/Malnutrition Assess - Dietary Evaluation Nutrition/Malnutrition Findings: Nutrition Notes Start: 03/26/22 11:41 Freq: Status: Active Protocol: Document 03/26/22 11:41 CELESTINO (Rec: 03/26/22 12:17 CELESTINO [id number]) Nutrition Notes Need for Assessment generated from: MD Order Initial or Follow up Assessment Other Pertinent Diagnosis AMS, Fever, Dehydration, Atrial Fibrilation/RVR, L-Knee Swelling. Current Diet Regular Diet (since B 03/25), TF-Jevity 1.2 Chidi @ 60 ml/hr ( from D 03/26). Labs/Tests 03/26: K 3.0, BUN 30, Glu 133. Pertinent Medications 03/26: FeSO4, KCl 40mEq, others nutritionally unremarkable. 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 Weight Status Obese Subjective/Other Information RD consult for write/mange TF. Pt's PO intake has been Poor ( <50%), according to ADL notes, but MD wants to improve Pt's nutrition status and requested TF, according to RN over the phone. I will prescribe TF to provide Pt with energy/protein needs during LOS. Pt is on Room Air, O2 saturation @ 98%, according to Physical Assessment History notes. Pt has missing teeth, according to Physical Assessment History notes. Pt presents bilateral-LE pitting edema 1+, according to Physical Assessment History notes. Pt is a SNF resident, according to Progress notes. Percent of energy/protein needs met: Prescribed TF-Jevity 1.2 Chidi @ 60 ml/hr provides for energy/ protein needs (1,720 Kcal/80 g ) during LOS, 101% Kcal; 100% AA. Burn Absent Trauma Absent GI Symptoms None Food Allergy No Skin Integrity/Comment Assessment WNL. 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 As Evidenced by Signs and Symptoms Pt's PO intake has been Poor ( <50%), according to ADL notes, but MD wants to improve Pt's nutrition status and requested TF, according to RN over the phone. Is patient on ventilator? No Is Patient Ambulatory and/or Out of Bed No REE-([facility]-confined to bed) [phone] Calculation Used for Recommendations [facility] Additional Notes Protein: 1-1.2 g/Kg AdjBW; 69- 83 g/day. Fluids: 1 ml/Kcal, or as per MD. Nutrition Intervention Change Diet Order: Hold on Regular Diet. Nutrition Support: Start TF-Jevity 1.2 Chidi @ 60 ml/hr. Flush: 100 ml water Q 4 hr, or as per MD. Kcal 1,720 Protein (gm) 80 Carbohydrates (gm) 243 Fat (gm) 56 Fluid (mL) 1,157 Fiber (gm) 26 % RDI: 101% Kcal; 100% AA. Goal #1 Provide at least 75% of energy /protein needs through Enteral Feeding during LOS. Follow-Up By: 03/28/22 Additional Comments Start monitoring TF tolerance and BM.
[2022-03-26] MEDS ORDERED: AMIODARONE 150 MG in DEXTROSE 5% IN WATER 100 ML IV NR (14:00)
[2022-03-26] MEDS: POTASSIUM CHLORIDE 20 MEQ PACKET FEEDTUBE SCH ×2 (14:13→16:31)
--- NOTE | 2022-03-26 14:34 | XRay Report ---
. XR abdomen 1V ap INDICATION: dobhoff placement. COMPARISON: None available. FINDINGS: The tip of the feeding tube projects over the lower thoracic esophagus. Signer Name: Temo Gerardo MD Signed: 03/26/2022 2:30 PM Workstation Name: [email or web address]
--- NOTE | 2022-03-26 14:38 | XRay Report ---
ABDOMEN 1 VIEW(S) 1306 hours INDICATION / CLINICAL INFORMATION: dobhoff placement. COMPARISON: Earlier today at 1132 hours FINDINGS: TUBES / LINES: The distal tip of the feeding tube has been advanced and now terminates in the fundus of the stomach but it is not transpyloric. BOWEL GAS PATTERN: No significant abnormality. FREE AIR / EXTRALUMINAL GAS: None seen. ADDITIONAL FINDINGS: No significant additional findings. IMPRESSION: Feeding tube as described. Signer Name: Tal Fonseca Jr, MD Signed: 03/26/2022 2:33 PM Workstation Name: [id number]
[2022-03-26] MEDS: AMIODARONE 200 MG TAB PO SCH ×2 (15:05→22:12)
[2022-03-26] MEDS: QUEtiapine 100 MG TAB PO SCH (22:12)
[2022-03-26] MEDS: ACETAMINOPHEN 325 MG TAB PO PRN (22:15)
[2022-03-27 06:02] LABS: BUN/Creatinine Ratio 35; Blood Urea Nitrogen 35 mg/dL (7-17); Calcium 9.2 mg/dL (8.4-10.2); Hemolysis Index 0
[2022-03-27] MEDS: HEPARIN 5,000 UNIT/1 ML VIAL SUB-Q SCH ×3 (06:32→22:01)
[2022-03-27] MEDS: INSULIN LISPRO 100 UNIT/ML SUB-Q SCH ×3 (06:45→16:37)
--- NOTE | 2022-03-27 08:29 | Cat Scan Report ---
CT head/brain wo con INDICATION: altered mental status. TECHNIQUE: All CT scans at this location are performed using CT dose reduction for ALARA by means of automated e xposure control. COMPARISON: None available. FINDINGS: There is no evidence of hemorrhage, hydrocephalus, brain edema, or mass effect/mass lesion. There are several chronic appearing lacunar infarcts of the bilateral basal ganglia. There is mild global atro phy. The included paranasal sinuses and mastoid air cells are clear. The orbits appear unremarkable. IMPRESSION: 1. No acute findings. Signer Name: Temo Gerardo MD Signed: 03/27/2022 8:24 AM Workstation Name: [id number]
[2022-03-27] MEDS: hydroCHLOROthiazide 25 MG TAB PO SCH (09:15)
[2022-03-27] MEDS: METOPROLOL TARTRATE 50 MG TAB PO SCH ×3 (09:15→22:02)
[2022-03-27] MEDS: AMIODARONE 200 MG TAB PO SCH ×2 (09:15→22:01)
[2022-03-27] MEDS: amLODIPine 5 MG TAB PO SCH (09:15)
[2022-03-27] MEDS: FERROUS SULFATE 325 MG TAB PO SCH (09:15)
[2022-03-27] MEDS ORDERED: QUEtiapine 100 MG TAB PO SCH (10:54)
--- NOTE | 2022-03-27 10:58 | Progress Note ---
Assessment and Plan Assessment and plan: #Acute encephalopathy #H/O Schizophrenia and Dementia -patient not at baseline according to family -CT head noncontrast unremarkable. Chest x-ray unremarkable for acute findings. -UA not suggestive of UTI, antibiotics discontinued. -Discontinued risperidone (per conversation with patient's family about it being discontinued at longterm). Reducing home Seroquel dose from 100mg to 50 mg nightly. #Atrial fibrillation with RVRresolved -Status post Cardene drip -Amiodarone drip started by cardiology, continue metoprolol -Echocardiogram shows normal ejection fraction -Unclear if this is persistent versus paroxysmal; anticoagulation held due to high risk of bleed with patient anemia -Cardiology following, assistance appreciated #Hypokalemiaresolved -Potassium 3.0, supplementation via Dobbhoff ordered -We will repeat level in @1600 -will continue to monitor #Poor PO intake #Volume depletion-improved #Possible dysphagia -patient refusing to eat at [place] and refusing medications -dobhoff in place with tube feeds continuing. Speech evaluation consulted; pending recs. #Hypertension -Continue home metoprolol titrate 50 mg twice daily, amlodipine 5 mg, and hydrochlorothiazide 25 mg daily #Osteoarthritis -X-ray of left knee suggestive of arthritis -Supportive care #Fever- resolved -patient without WBC, and had low grade fever 100.4 -no further fever over the last 24 hrs #UTI ruled out #Obesity #Weight loss counseling #Exercise counseling - BMI 30.7 - Counseled patient on the importance of weight loss, incorporating exercise, a nd dietary changes (lean meats, fresh fruits and vegetables, and water intake). Patient expresses understanding. - Time: +15 min #Advanced care planning -Disease education conducted, care plan discussed, diagnoses discussed, prognosis discussed, and patient acknowledges understanding with care plan -Time: +30 min Disposition Plan: Continue medical management Total Time Spent with Patient (Minutes): 45 minutes History Interval history: No acute events overnight. Hospitalist Physical - Constitutional Vitals: Temp Pulse Resp BP Pulse Ox 98.3 F 91 H 18 136/75 98 03/27/22 07:24 03/27/22 07:24 03/27/22 07:40 03/27/22 07:24 03/27/22 07:40 General appearance: Present: no acute distress, well-nourished, obese - EENT Eyes: Present: PERRL, EOM intact ENT: hearing intact, oropharyngeal erythema, poor dentition, other (Dobbhoff in place) - Neck Neck: Present: supple, normal ROM - Respiratory Respiratory effort: normal Respiratory: bilateral: diminished - Cardiovascular Rhythm: regular Heart Sounds: Present: S1 & S2 - Extremities Extremities: no ischemia, pulses intact, pulses symmetrical, No edema, normal temperature, normal color Peripheral Pulses: within normal limits - Abdominal General gastrointestinal: soft, tender, non-distended, normal bowel sounds Localized gastrointestinal: tender: diffuse - Integumentary Integumentary: Present: clear, warm, dry - Psychiatric Psychiatric: other (Sleepy/lethargic) - Neurologic Neurologic: CNII-XII intact - Allied Health Allied health notes reviewed: nursing Results - Labs CBC & Chem 7: 03/26/22 04:47 03/27/22 04:38 Labs: Laboratory Last Values WBC 8.7 K/mm3 (4.5-11.0) 03/26/22 04:47 RBC 3.48 M/mm3 (3.65-5.03) L 03/26/22 04:47 Hgb 7.6 gm/dl (10.1-14.3) L 03/26/22 04:47 Hct 23.6 % (30.3-42.9) L 03/26/22 04:47 MCV 68 fl (79-97) L 03/26/22 04:47 MCH 22 pg (28-32) L 03/26/22 04:47 MCHC 32 % (30-34) 03/26/22 04:47 RDW 18.0 % (13.2-15.2) H 03/26/22 04:47 Plt Count 311 K/mm3 (140-440) 03/26/22 04:47 Lymph % (Auto) 17.1 % (13.4-35.0) 03/26/22 04:47 [place] % (Auto) 9.6 % (0.0-7.3) H 03/26/22 04:47 Eos % (Auto) 0.3 % (0.0-4.3) 03/26/22 04:47 Baso % (Auto) 0.4 % (0.0-1.8) 03/26/22 04:47 Lymph # (Auto) 1.5 K/mm3 (1.2-5.4) 03/26/22 04:47 [place] # (Auto) 0.8 K/mm3 (0.0-0.8) 03/26/22 04:47 Eos # (Auto) 0.0 K/mm3 (0.0-0.4) 03/26/22 04:47 Baso # (Auto) 0.0 K/mm3 (0.0-0.1) 03/26/22 04:47 Seg Neutrophils % 72.6 % (40.0-70.0) H 03/26/22 04:47 Seg Neutrophils # 6.3 K/mm3 (1.8-7.7) 03/26/22 04:47 Sodium 143 mmol/L (137-145) 03/27/22 04:38 Potassium 3.7 mmol/L (3.6-5.0) D 03/27/22 04:38 Chloride 109.9 mmol/L (98-107) H 03/27/22 04:38 Carbon Dioxide 25 mmol/L (22-30) 03/27/22 04:38 Anion Gap 12 mmol/L 03/27/22 04:38 BUN 35 mg/dL (7-17) H 03/27/22 04:38 Creatinine 1.0 mg/dL (0.6-1.2) 03/27/22 04:38 Estimated GFR > 60 ml/min 03/27/22 04:38 BUN/Creatinine Ratio 35 % 03/27/22 04:38 Glucose 171 mg/dL (65-100) H 03/27/22 04:38 POC Glucose 171 mg/dL (70-105) H 03/27/22 07:21 Calcium 9.2 mg/dL (8.4-10.2) 03/27/22 04:38 Total Bilirubin 0.30 mg/dL (0.1-1.2) 03/24/22 18:58 Direct Bilirubin < 0.2 mg/dL (0-0.2) 03/24/22 18:58 Indirect Bilirubin 0.1 mg/dL 03/24/22 18:58 AST 32 units/L (5-40) 03/24/22 18:58 ALT 16 units/L (7-56) 03/24/22 18:58 Alkaline Phosphatase 81 units/L (35-129) 03/24/22 18:58 Total Protein 6.8 g/dL (6.3-8.2) 03/24/22 18:58 Albumin 3.3 g/dL (3.9-5) L 03/24/22 18:58 Albumin/Globulin Ratio 0.9 % 03/24/22 18:58 Urine Color Colorless (Yellow) 03/24/22 Unknown Urine Turbidity Clear (Clear) 03/24/22 Unknown Urine pH 5.0 (5.0-7.0) 03/24/22 Unknown Ur Specific [place] 1.025 (1.003-1.030) 03/24/22 Unknown Urine Protein 30 mg/dl mg/dL (Negative) 03/24/22 Unknown Urine Glucose (UA) Negative mg/dL (Negative) 03/24/22 Unknown Urine Ketones Negative mg/dL (Negative) 03/24/22 Unknown Urine Blood Negative (Negative) 03/24/22 Unknown Urine Nitrite Negative (Negative) 03/24/22 Unknown Urine Bilirubin Negative (Negative) 03/24/22 Unknown Urine Urobilinogen 0.2 mg/dL (<2.0) 03/24/22 Unknown Ur Leukocyte Esterase 75 (Negative) 03/24/22 Unknown Urine WBC (Auto) < 1.0 /HPF (0.0-6.0) 03/24/22 Unknown Urine RBC (Auto) < 1.0 /HPF (0.0-6.0) 03/24/22 Unknown Urine Bacteria (Auto) 1+ /HPF (Negative) 03/24/22 Unknown Sanches/IV: Voiding Method External Female Catheter Active Medications - Current Medications Current Medications: Generic Name Dose Route Start Last Admin Trade Name Freq PRN Reason Stop Dose Admin Acetaminophen 650 mg 03/25/22 00:47 03/26/22 22:15 Acetaminophen 325 Mg Tab PO 650 mg Q4H PRN Administration Pain MILD(1-3)/Fever >100.5/VILLANUEVA Amiodarone HCl 200 mg 03/26/22 13:00 03/27/22 09:15 Amiodarone 200 Mg Tab PO 200 mg BID SINCERE Administration Amlodipine Besylate 5 mg 03/25/22 12:00 03/27/22 09:15 Amlodipine 5 Mg Tab PO 5 mg DAILY SINCERE Administration Clonidine HCl 0.1 mg 03/25/22 11:52 Clonidine 0.1 Mg Tab PO Q8H PRN Hypertension Dextrose 50 ml 03/25/22 10:26 Dextrose 50% In Water (25gm) 50 Ml Syringe IV Q30MIN PRN Hypoglycemia Protocol Ferrous Sulfate 325 mg 03/26/22 10:00 03/27/22 09:15 Ferrous Sulfate 325 Mg Tab PO Not Given QDAY SINCERE Heparin Sodium (Porcine) 5,000 unit 03/25/22 06:00 03/27/22 06:32 Heparin 5,000 Unit/1 Ml Vial SUB-Q 5,000 unit Q8HR SINCERE Administration Hydrochlorothiazide 25 mg 03/25/22 12:00 03/27/22 09:15 Hydrochlorothiazide 25 Mg Tab PO 25 mg QDAY SINCERE Administration Insulin Human Lispro 0 unit 03/26/22 17:00 03/27/22 06:45 Insulin Lispro 100 Unit/Ml SUB-Q 1 unit Q6H SINCERE Administration Protocol Magnesium Hydroxide 30 ml 03/25/22 00:52 Magnesium Hydroxide (Mom) Oral Liqd Udc PO Q4H PRN Constipation Metoprolol Tartrate 50 mg 03/25/22 11:00 03/27/22 09:15 Metoprolol Tartrate 50 Mg Tab PO 50 mg BID SINCERE Administration Morphine Sulfate 2 mg 03/25/22 00:47 03/25/22 17:13 Morphine 2 Mg/1 Ml Inj IV 2 mg Q4H PRN Administration Pain, Moderate (4-6) Morphine Sulfate 4 mg 03/25/22 00:47 Morphine 4 Mg/1 Ml Inj IV Q4H PRN Pain , Severe (7-10) Ondansetron HCl 4 mg 03/25/22 00:47 Ondansetron 4 Mg/2 Ml Inj IV Q8H PRN Nausea And Vomiting Quetiapine Fumarate 100 mg 03/25/22 22:00 03/26/22 22:12 Quetiapine 100 Mg Tab PO 100 mg QHS SINCERE Administration Sodium Chloride 10 ml 03/25/22 10:00 03/27/22 09:15 Sodium Chloride 0.9% 10 Ml Flush Syringe IV Not Given BID SINCERE Sodium Chloride 10 ml 03/25/22 00:47 Sodium Chloride 0.9% 10 Ml Flush Syringe IV PRN PRN LINE FLUSH Nutrition/Malnutrition Assess - Dietary Evaluation Nutrition/Malnutrition Findings: Nutrition Notes Start: 03/26/22 11:41 Freq: Status: Active Protocol: Document 03/26/22 11:41 CELESTINO (Rec: 03/26/22 12:17 CELESTINO [id number]) Nutrition Notes Need for Assessment generated from: MD Order Initial or Follow up Assessment Other Pertinent Diagnosis AMS, Fever, Dehydration, Atrial Fibrilation/RVR, L-Knee Swelling. Current Diet Regular Diet (since B 03/25), TF-Jevity 1.2 Chidi @ 60 ml/hr ( from D 03/26). Labs/Tests 03/26: K 3.0, BUN 30, Glu 133. Pertinent Medications 03/26: FeSO4, KCl 40mEq, others nutritionally unremarkable. 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 Weight Status Obese Subjective/Other Information RD consult for write/mange TF. Pt's PO intake has been Poor ( <50%), according to ADL notes, but MD wants to improve Pt's nutrition status and requested TF, according to RN over the phone. I will prescribe TF to provide Pt with energy/protein needs during LOS. Pt is on Room Air, O2 saturation @ 98%, according to Physical Assessment History notes. Pt has missing teeth, according to Physical Assessment History notes. Pt presents bilateral-LE pitting edema 1+, according to Physical Assessment History notes. Pt is a SNF resident, according to Progress notes. Percent of energy/protein needs met: Prescribed TF-Jevity 1.2 Chidi @ 60 ml/hr provides for energy/ protein needs (1,720 Kcal/80 g ) during LOS, 101% Kcal; 100% AA. Burn Absent Trauma Absent GI Symptoms None Food Allergy No Skin Integrity/Comment Assessment WNL. Current % PO Poor (25-49%) Minimum of two criteria No Fluid Accumulation Mild (non-severe) Reduced Show Host/Hostess Strength N/A (non-severe) Protein-Calorie Malnutrition N\A #1 Nutrition Diagnosis Inadequate protein-energy intake Etiology AMS. As Evidenced by Signs and Symptoms Pt's PO intake has been Poor ( <50%), according to ADL notes, but MD wants to improve Pt's nutrition status and requested TF, according to RN over the phone. Is patient on ventilator? No Is Patient Ambulatory and/or Out of Bed No REE-([place]-St. Jeor-confined to bed) [phone] [facility]culation [facility] Additional Notes Protein: 1-1.2 g/Kg AdjBW; 69- 83 g/day. Fluids: 1 ml/Kcal, or as per MD. Nutrition Intervention Change Diet Order: Hold on Regular Diet. Nutrition Support: Start TF-Jevity 1.2 Chidi @ 60 ml/hr. Flush: 100 ml water Q 4 hr, or as per MD. Kcal 1,720 Protein (gm) 80 Carbohydrates (gm) 243 Fat (gm) 56 Fluid (mL) 1,157 Fiber (gm) 26 % RDI: 101% Kcal; 100% AA. Goal #1 Provide at least 75% of energy /protein needs through Enteral Feeding during LOS. Follow-Up By: 03/28/22 Additional Comments Start monitoring TF tolerance and BM.
--- NOTE | 2022-03-27 11:26 | Progress Note ---
Assessment and Plan - Patient Problems (1) Paroxysmal atrial fibrillation Current Visit: Yes Status: Acute Plan to address problem: Patient presented with paroxysmal atrial fibrillation, on amiodarone and metoprolol for atrial fibrillation suppression. Due to persistent severe anemia, hematocrit was 27, currently 23, patient is at high risk for oral anticoagulation. We will optimize beta-steven therapy and continue amiodarone. Subjective Date of service: 03/27/22 Principal diagnosis: Altered mental status, rapid atrial fibrillation Interval history: Patient appears comfortable, no acute distress. On purchasing administrative assistant there is a mild sinus tachycardia at 110, with frequent PACs. The previously frequent bursts of rapid atrial fibrillation and no longer evident. Objective Vital Signs Temp Pulse Resp BP Pulse Ox 03/27/22 07:40 18 98 03/27/22 07:24 98.3 F 91 H 18 136/75 95 03/27/22 03:58 98.9 F 87 20 139/69 96 03/26/22 23:03 98.5 F 65 17 141/63 95 03/26/22 22:13 42 L 148/58 03/26/22 22:00 110 H 03/26/22 21:00 18 98 03/26/22 19:10 100.2 F H 42 L 20 148/58 95 03/26/22 15:02 97.8 F 90 17 144/80 97 - Physical Examination General: No Apparent Distress, Other (Patient appears lethargic and chronically ill) HEENT: Positive: EOMI Neck: Positive: neck supple Cardiac: Positive: Irregularly Regular Lungs: Positive: Decreased Breath Sounds Neuro: Positive: Weakness (Generalized lethargy) Abdomen: Positive: Soft Skin: Positive: Clear Extremities: Absent: edema - Labs and Meds Comprehensive Metabolic Panel 03/27/22 Range/Units 04:38 Sodium 143 (137-145) mmol/L Potassium 3.7 D (3.6-5.0) mmol/L Chloride 109.9 H (98-107) mmol/L Carbon Dioxide 25 (22-30) mmol/L BUN 35 H (7-17) mg/dL Creatinine 1.0 (0.6-1.2) mg/dL Glucose 171 H (65-100) mg/dL Calcium 9.2 (8.4-10.2) mg/dL
[2022-03-28] MEDS: HEPARIN 5,000 UNIT/1 ML VIAL SUB-Q SCH ×3 (06:31→21:15)
[2022-03-28] MEDS: METOPROLOL TARTRATE 50 MG TAB PO SCH (06:31)
[2022-03-28] MEDS: INSULIN LISPRO 100 UNIT/ML SUB-Q SCH ×4 (06:32→16:34)
[2022-03-28] MEDS: MORPHINE 2 MG/1 ML INJ IV PRN (10:00)
[2022-03-28] MEDS: FERROUS SULFATE 325 MG TAB PO SCH (10:00)
[2022-03-28] MEDS: amLODIPine 5 MG TAB PO SCH (10:00)
[2022-03-28] MEDS: AMIODARONE 200 MG TAB PO SCH ×2 (10:00→21:15)
[2022-03-28] MEDS: hydroCHLOROthiazide 25 MG TAB PO SCH (10:00)
--- NOTE | 2022-03-28 12:46 | Progress Note ---
Assessment and Plan Assessment and plan: #Acute metabolic encephalopathyimproving #H/O Schizophrenia and Dementia -patient not at baseline according to family -CT head noncontrast unremarkable. Chest x-ray unremarkable for acute findings. -UA not suggestive of UTI, antibiotics discontinued. -Discontinued risperidone (per conversation with patient's family about it being discontinued at senior care). Discontinuing home Seroquel dose from 100mg to 50 mg nightly due to concern for continued lethargy/drowsiness. #Atrial fibrillation with RVRresolved -Status post Cardene drip -Amiodarone drip started by cardiology, continue metoprolol -Echocardiogram shows normal ejection fraction -Unclear if this is persistent versus paroxysmal; anticoagulation held due to high risk of bleed with patient anemia -Cardiology following, assistance appreciated #Hypokalemiaresolved -Potassium 3.0, supplementation via Dobbhoff ordered -We will repeat level in @1600 -will continue to monitor #Poor PO intake #Volume depletion-improved #Possible dysphagia -patient refusing to eat at [place] and refusing medications -Dobhoff in place with tube feeds discontinued upon discharge. Speech evaluation consulted; pured food with thin liquids. #Hypertension -Continue home metoprolol titrate 50 mg twice daily, amlodipine 5 mg, and hydrochlorothiazide 25 mg daily #Osteoarthritis -X-ray of left knee suggestive of arthritis -Supportive care #Fever- resolved -patient without WBC, and had low grade fever 100.4 -no further fever over the last 24 hrs #UTI ruled out #Obesity #Weight loss counseling #Exercise counseling - BMI 30.7 - Counseled patient on the importance of weight loss, incorporating exercise, and dietary changes (lean meats, fresh fruits and vegetables, and water intake). Patient expresses understanding. - Time: +15 min #Advanced care planning -Disease education conducted, care plan discussed, diagnoses discussed, prognosis discussed, and patient acknowledges understanding with care plan -Time: +30 min #Discharge planning - Patient is pending resolution of acute metabolic encephalopathy - Case management has been made aware. - Discharge is tentatively 24-48 hours Disposition Plan: Continue medical management Total Time Spent with Patient (Minutes): 45 minutes History Interval history: No acute events overnight. Hospitalist Physical - Constitutional Vitals: Temp Pulse Resp BP Pulse Ox 98.1 F 105 H 18 153/89 100 03/28/22 11:42 03/28/22 11:42 03/28/22 11:42 03/28/22 11:42 03/28/22 11:42 General appearance: Present: no acute distress, well-nourished, obese, other (Very drowsy double but mildly arousable with painful stimuli) - EENT Eyes: Present: PERRL, EOM intact ENT: hearing intact, clear oral mucosa, other (NG tube in place) - Neck Neck: Present: supple, normal ROM - Respiratory Respiratory effort: normal Respiratory: bilateral: CTA - Cardiovascular Rhythm: regular Heart Sounds: Present: S1 & S2 - Extremities Extremities: no ischemia, pulses intact, pulses symmetrical, No edema, normal temperature, normal color Peripheral Pulses: within normal limits - Abdominal General gastrointestinal: soft, non-tender, non-distended, normal bowel sounds - Integumentary Integumentary: Present: clear, warm, dry - Psychiatric Psychiatric: other (Very drowsy and difficult to fully assess) - Neurologic Neurologic: CNII-XII intact (With painful stimuli) - Allied Health Allied health notes reviewed: nursing, case management Results - Labs CBC & Chem 7: 03/26/22 04:47 03/27/22 04:38 Labs: Laboratory Last Values WBC 8.7 K/mm3 (4.5-11.0) 03/26/22 04:47 RBC 3.48 M/mm3 (3.65-5.03) L 03/26/22 04:47 Hgb 7.6 gm/dl (10.1-14.3) L 03/26/22 04:47 Hct 23.6 % (30.3-42.9) L 03/26/22 04:47 MCV 68 fl (79-97) L 03/26/22 04:47 MCH 22 pg (28-32) L 03/26/22 04:47 MCHC 32 % (30-34) 03/26/22 04:47 RDW 18.0 % (13.2-15.2) H 03/26/22 04:47 Plt Count 311 K/mm3 (140-440) 03/26/22 04:47 Lymph % (Auto) 17.1 % (13.4-35.0) 03/26/22 04:47 [place] % (Auto) 9.6 % (0.0-7.3) H 03/26/22 04:47 Eos % (Auto) 0.3 % (0.0-4.3) 03/26/22 04:47 Baso % (Auto) 0.4 % (0.0-1.8) 03/26/22 04:47 Lymph # (Auto) 1.5 K/mm3 (1.2-5.4) 03/26/22 04:47 [place] # (Auto) 0.8 K/mm3 (0.0-0.8) 03/26/22 04:47 Eos # (Auto) 0.0 K/mm3 (0.0-0.4) 03/26/22 04:47 Baso # (Auto) 0.0 K/mm3 (0.0-0.1) 03/26/22 04:47 Seg Neutrophils % 72.6 % (40.0-70.0) H 03/26/22 04:47 Seg Neutrophils # 6.3 K/mm3 (1.8-7.7) 03/26/22 04:47 Sodium 143 mmol/L (137-145) 03/27/22 04:38 Potassium 3.7 mmol/L (3.6-5.0) D 03/27/22 04:38 Chloride 109.9 mmol/L (98-107) H 03/27/22 04:38 Carbon Dioxide 25 mmol/L (22-30) 03/27/22 04:38 Anion Gap 12 mmol/L 03/27/22 04:38 BUN 35 mg/dL (7-17) H 03/27/22 04:38 Creatinine 1.0 mg/dL (0.6-1.2) 03/27/22 04:38 Estimated GFR > 60 ml/min 03/27/22 04:38 BUN/Creatinine Ratio 35 % 03/27/22 04:38 Glucose 171 mg/dL (65-100) H 03/27/22 04:38 POC Glucose 169 mg/dL (70-105) H 03/28/22 11:40 Calcium 9.2 mg/dL (8.4-10.2) 03/27/22 04:38 Total Bilirubin 0.30 mg/dL (0.1-1.2) 03/24/22 18:58 Direct Bilirubin < 0.2 mg/dL (0-0.2) 03/24/22 18:58 Indirect Bilirubin 0.1 mg/dL 03/24/22 18:58 AST 32 units/L (5-40) 03/24/22 18:58 ALT 16 units/L (7-56) 03/24/22 18:58 Alkaline Phosphatase 81 units/L (35-129) 03/24/22 18:58 Total Protein 6.8 g/dL (6.3-8.2) 03/24/22 18:58 Albumin 3.3 g/dL (3.9-5) L 03/24/22 18:58 Albumin/Globulin Ratio 0.9 % 03/24/22 18:58 Urine Color Colorless (Yellow) 03/24/22 Unknown Urine Turbidity Clear (Clear) 03/24/22 Unknown Urine pH 5.0 (5.0-7.0) 03/24/22 Unknown Ur Specific [place] 1.025 (1.003-1.030) 03/24/22 Unknown Urine Protein 30 mg/dl mg/dL (Negative) 03/24/22 Unknown Urine Glucose (UA) Negative mg/dL (Negative) 03/24/22 Unknown Urine Ketones Negative mg/dL (Negative) 03/24/22 Unknown Urine Blood Negative (Negative) 03/24/22 Unknown Urine Nitrite Negative (Negative) 03/24/22 Unknown Urine Bilirubin Negative (Negative) 03/24/22 Unknown Urine Urobilinogen 0.2 mg/dL (<2.0) 03/24/22 Unknown Ur Leukocyte Esterase 75 (Negative) 03/24/22 Unknown Urine WBC (Auto) < 1.0 /HPF (0.0-6.0) 03/24/22 Unknown Urine RBC (Auto) < 1.0 /HPF (0.0-6.0) 03/24/22 Unknown Urine Bacteria (Auto) 1+ /HPF (Negative) 03/24/22 Unknown Sanches/IV: Voiding Method External Female Catheter Active Medications - Current Medications Current Medications: Generic Name Dose Route Start Last Admin Trade Name Freq PRN Reason Stop Dose Admin Acetaminophen 650 mg 03/25/22 00:47 03/26/22 22:15 Acetaminophen 325 Mg Tab PO 650 mg Q4H PRN Administration Pain MILD(1-3)/Fever >100.5/VILLANUEVA Amiodarone HCl 200 mg 03/26/22 13:00 03/28/22 10:00 Amiodarone 200 Mg Tab PO 200 mg BID SINCERE Administration Amlodipine Besylate 5 mg 03/25/22 12:00 03/28/22 10:00 Amlodipine 5 Mg Tab PO 5 mg DAILY SINCERE Administration Clonidine HCl 0.1 mg 03/25/22 11:52 Clonidine 0.1 Mg Tab PO Q8H PRN Hypertension Dextrose 50 ml 03/25/22 10:26 Dextrose 50% In Water (25gm) 50 Ml Syringe IV Q30MIN PRN Hypoglycemia Protocol Ferrous Sulfate 325 mg 03/26/22 10:00 03/28/22 10:00 Ferrous Sulfate 325 Mg Tab PO 325 mg QDAY SINCERE Administration Heparin Sodium (Porcine) 5,000 unit 03/25/22 06:00 03/28/22 06:31 Heparin 5,000 Unit/1 Ml Vial SUB-Q 5,000 unit Q8HR SINCERE Administration Hydrochlorothiazide 25 mg 03/25/22 12:00 03/28/22 10:00 Hydrochlorothiazide 25 Mg Tab PO 25 mg QDAY SICNERE Administration Insulin Human Lispro 0 unit 03/26/22 17:00 03/28/22 12:00 Insulin Lispro 100 Unit/Ml SUB-Q 1 unit Q6H SINCERE Administration Protocol Magnesium Hydroxide 30 ml 03/25/22 00:52 Magnesium Hydroxide (Mom) Oral Liqd Udc PO Q4H PRN Constipation Metoprolol Tartrate 50 mg 03/27/22 15:00 03/28/22 06:31 Metoprolol Tartrate 50 Mg Tab PO 50 mg Q8HR SINCERE Administration Morphine Sulfate 2 mg 03/25/22 00:47 03/28/22 10:00 Morphine 2 Mg/1 Ml Inj IV 2 mg Q4H PRN Administration Pain, Moderate (4-6) Morphine Sulfate 4 mg 03/25/22 00:47 Morphine 4 Mg/1 Ml Inj IV Q4H PRN Pain , Severe (7-10) Ondansetron HCl 4 mg 03/25/22 00:47 Ondansetron 4 Mg/2 Ml Inj IV Q8H PRN Nausea And Vomiting Sodium Chloride 10 ml 03/25/22 10:00 03/28/22 10:00 Sodium Chloride 0.9% 10 Ml Flush Syringe IV 10 ml BID SINCERE Administration Sodium Chloride 10 ml 03/25/22 00:47 Sodium Chloride 0.9% 10 Ml Flush Syringe IV PRN PRN LINE FLUSH Nutrition/Malnutrition Assess - Dietary Evaluation Nutrition/Malnutrition Findings: Nutrition Notes Start: 03/26/22 11:41 Freq: Status: Active Protocol: Document 03/28/22 11:23 CELESTINO (Rec: 03/28/22 11:33 CELESTINO [id number]) Nutrition Notes Initial or Follow up Brief Note Other Pertinent Diagnosis AMS, Fever, Dehydration, Atrial Fibrilation/RVR, L-Knee Swelling. Current Diet TF-Jevity 1.2 Chidi @ 60 ml/hr ( from D 03/26). Height 5 ft 6 in Weight 86.2 kg [place] Body Weight (kg) 59.09 BMI 30.7 Weight change and time frame 1.4 Kg body weighty loss in 2 days reported. Weight Status Obese Subjective/Other Information RD consult for routine F/U on TF tolerance/continuation. TF continues as prescribed, no further information available at the time, will assess at F /U. SIGN BOARD ERECTOR note on 03/27/22 11:54: Swallowing function has been assessed. Patient is safe for a pureed diet with thins. Will continue to monitor to determine a diet upgrade. Informed her nurseCarlton. - END OF NOTE. Pt is on Room Air, O2 saturation @ 98%, according to Physical Assessment History notes. Percent of energy/protein needs met: Prescribed TF-Jevity 1.2 Chidi @ 60 ml/hr provides for energy/ protein needs (1,720 Kcal/80 g ) during LOS, 101% Kcal; 100% AA. #2 Nutrition Diagnosis Malnutrition Diagnosis Progress(for reassessment Continues documentation) #1 Nutrition Diagnosis Inadequate protein-energy intake Comments: TF continues as prescribed. SIGN BOARD ERECTOR note on 03/27/22 11:54: Swallowing function has been assessed. Patient is safe for a pureed diet with thins. Will continue to monitor to determine a diet upgrade. Informed her Carlton alcazar. - END OF NOTE. Diagnosis Progress(for reassessment Improved documentation) Is patient on ventilator? No Is Patient Ambulatory and/or Out of Bed No REE-([place]-St. Jeor-confined to bed) [phone] Calculation Used for Recommendations [place]-St Jeor Additional Notes Protein: 1-1.2 g/Kg AdjBW; 69- 83 g/day. Fluids: 1 ml/Kcal, or as per MD. Nutrition Intervention Nutrition Support: Start TF-Jevity 1.2 Chidi @ 60 ml/hr. Flush: 100 ml water Q 4 hr, or as per MD. Kcal 1,720 Protein (gm) 80 Carbohydrates (gm) 243 Fat (gm) 56 Fluid (mL) 1,157 Fiber (gm) 26 % RDI: 101% Kcal; 100% AA. Goal #1 Provide at least 75% of energy /protein needs through Enteral Feeding during LOS. Goal #2 Adjust the dietary intervention to better serve Pt's needs and clinical conditions during LOS. Follow-Up By: 04/04/22 Additional Comments Continue monitoring TF tolerance and BM.
--- NOTE | 2022-03-28 12:57 | Progress Note ---
Assessment and Plan Paroxysmal atrial fibrillation Current Visit: Yes Status: Acute Plan to address problem: Patient presented with paroxysmal atrial fibrillation, on amiodarone and metoprolol for atrial fibrillation suppression. Due to persistent severe anemia, hematocrit was 27, currently 23, patient is at high risk for oral anticoagulation. Change metoprolol 100 twice daily and continue amiodarone. Subjective Date of service: 03/28/22 Principal diagnosis: Altered mental status, rapid atrial fibrillation Interval history: Patient appears comfortable not in acute distress. She does not have any cardiac complaints. Telemetry showed patient is sinus tachycardia in the rates of 100s. Objective Vital Signs Temp Pulse Resp BP Pulse Ox 03/28/22 11:42 98.1 F 105 H 18 153/89 100 03/28/22 09:00 18 98 03/28/22 08:13 99.3 F 98 H 18 153/82 95 03/28/22 06:31 98 H 138/69 03/28/22 05:22 97.3 F L 99 H 19 161/78 96 03/27/22 23:17 98.1 F 98 H 18 138/69 98 03/27/22 22:02 97 H 154/81 03/27/22 22:00 112 H 03/27/22 21:00 18 98 03/27/22 20:29 98.7 F 58 L 18 163/82 97 03/27/22 16:10 99.9 F H 97 H 20 154/81 97 - Physical Examination General: No Apparent Distress, Other (Patient appears lethargic and chronically ill) HEENT: Positive: EOMI Neck: Positive: neck supple Cardiac: Positive: Regular Rate, S1/S2 (Normal), Tachycardia Lungs: Positive: Decreased Breath Sounds, No Wheeze, Rales, Rhonchi Neuro: Positive: Weakness (Generalized lethargy) Abdomen: Positive: Soft (Obese) Skin: Positive: Clear Extremities: Absent: edema
[2022-03-28] MEDS: METOPROLOL TARTRATE 100 MG TAB PO SCH (21:15)
[2022-03-29] MEDS: INSULIN LISPRO 100 UNIT/ML SUB-Q SCH ×5 (00:15→22:50)
[2022-03-29] MEDS: HEPARIN 5,000 UNIT/1 ML VIAL SUB-Q SCH ×3 (05:51→21:38)
[2022-03-29] MEDS: FERROUS SULFATE 325 MG TAB PO SCH (10:09)
[2022-03-29] MEDS: amLODIPine 5 MG TAB PO SCH (10:09)
[2022-03-29] MEDS: AMIODARONE 200 MG TAB PO SCH ×2 (10:10→21:38)
[2022-03-29] MEDS: METOPROLOL TARTRATE 100 MG TAB PO SCH ×2 (10:10→21:38)
[2022-03-29] MEDS: hydroCHLOROthiazide 25 MG TAB PO SCH (10:10)
--- NOTE | 2022-03-29 10:43 | Progress Note ---
Assessment and Plan Paroxysmal atrial fibrillation Current Visit: Yes Status: Acute Plan to address problem: Patient presented with paroxysmal atrial fibrillation, on amiodarone and metoprolol for atrial fibrillation suppression. Due to persistent severe anemia, hematocrit was 27, currently 23, patient is at high risk for oral anticoagulation. Continue metoprolol 100 twice daily and continue amiodarone. Subjective Principal diagnosis: Altered mental status, rapid atrial fibrillation Interval history: Patient appears comfortable not in acute distress. She does not have any cardiac complaints. Telemetry showed patient is sinus tachycardia with frequent PACs in the rates of 100s. Objective Vital Signs Temp Pulse Resp BP Pulse Ox 03/29/22 07:32 98.3 F 108 H 18 165/82 96 03/29/22 04:22 100.0 F H 95 H 20 138/81 95 03/28/22 23:57 98.9 F 88 16 140/80 96 03/28/22 22:00 88 03/28/22 21:15 122 H 137/81 03/28/22 21:00 18 98 03/28/22 19:23 98.9 F 122 H 28 H 137/81 96 03/28/22 16:07 97.7 F 97 H 18 149/84 100 03/28/22 11:42 98.1 F 105 H 18 153/89 100 - Physical Examination General: No Apparent Distress, Other (Patient appears lethargic and chronically ill) HEENT: Positive: EOMI Neck: Positive: neck supple Cardiac: Positive: S1/S2, Tachycardia Lungs: Positive: clear to auscultation (Anterior), No Wheeze, Rales, Rhonchi (Anterior) Neuro: Positive: Weakness (Generalized lethargy) Abdomen: Positive: Soft (Obese) Skin: Positive: Clear Extremities: Absent: edema
--- NOTE | 2022-03-29 14:57 | Progress Note ---
Assessment and Plan Assessment and plan: #Acute metabolic encephalopathyimproving #H/O Schizophrenia and Dementia -patient not at baseline according to family -CT head noncontrast unremarkable. Chest x-ray unremarkable for acute findings. -UA not suggestive of UTI, antibiotics discontinued. -Discontinued risperidone (per conversation with patient's family about it being discontinued at senior living). Discontinuing home Seroquel dose from 100mg to 50 mg nightly due to concern for continued lethargy/drowsiness. #Atrial fibrillation with RVRresolved -Status post Cardene drip -Amiodarone drip started by cardiology, continue metoprolol -Echocardiogram shows normal ejection fraction -Unclear if this is persistent versus paroxysmal; anticoagulation held due to high risk of bleed with patient anemia -Cardiology following, assistance appreciated. Continue metoprolol 100mg BID and amiodarone 200mg #Hypokalemiaresolved -Potassium 3.0, supplementation via Dobbhoff ordered -We will repeat level in @1600 -will continue to monitor #Poor PO intake #Volume depletion-improved #Possible dysphagia -patient refusing to eat at [place] and refusing medications -Dobhoff in place with tube feeds discontinued upon discharge. Speech evaluation consulted; pured food with thin liquids. #Hypertension -Continue home metoprolol titrate 50 mg twice daily, amlodipine 5 mg, and hydrochlorothiazide 25 mg daily #Osteoarthritis -X-ray of left knee suggestive of arthritis -Supportive care #Fever- resolved -patient without WBC, and had low grade fever 100.4 -no further fever over the last 24 hrs #UTI ruled out #Obesity #Weight loss counseling #Exercise counseling - BMI 30.7 - Counseled patient on the importance of weight loss, incorporating exercise, and dietary changes (lean meats, fresh fruits and vegetables, and water intake). Patient expresses understanding. - Time: +15 min #Advanced care planning -Disease education conducted, care plan discussed, diagnoses discussed, prognosis discussed, and patient acknowledges understanding with care plan -Time: +30 min #Discharge planning - Patient is pending resolution of acute metabolic encephalopathy - Case management has been made aware. - Discharge is tentatively 24-48 hours Disposition Plan: Continue medical management Total Time Spent with Patient (Minutes): 45 minutes History Interval history: No acute events overnight. Hospitalist Physical - Constitutional Vitals: Temp Pulse Resp BP Pulse Ox 98.6 F 108 H 18 143/71 98 08/11/22 11:17 03/29/22 13:11 03/29/22 13:11 03/29/22 11:17 03/29/22 13:11 General appearance: Present: no acute distress, well-nourished, obese - EENT Eyes: Present: PERRL, EOM intact ENT: hearing intact, clear oral mucosa, dentition normal, other (NG tube in place) - Neck Neck: Present: supple, normal ROM - Respiratory Respiratory effort: normal Respiratory: bilateral: CTA - Cardiovascular Rhythm: regular Heart Sounds: Present: S1 & S2 - Extremities Extremities: no ischemia, pulses intact, pulses symmetrical, No edema, normal temperature, normal color Peripheral Pulses: within normal limits - Abdominal General gastrointestinal: soft, non-tender, non-distended, normal bowel sounds - Integumentary Integumentary: Present: clear, warm, dry - Psychiatric Psychiatric: other (More conversant but still slightly drowsy) - Neurologic Neurologic: CNII-XII intact - Allied Health Allied health notes reviewed: nursing Results - Labs CBC & Chem 7: 03/26/22 04:47 03/27/22 04:38 Labs: Laboratory Last Values WBC 8.7 K/mm3 (4.5-11.0) 03/26/22 04:47 RBC 3.48 M/mm3 (3.65-5.03) L 03/26/22 04:47 Hgb 7.6 gm/dl (10.1-14.3) L 03/26/22 04:47 Hct 23.6 % (30.3-42.9) L 03/26/22 04:47 MCV 68 fl (79-97) L 03/26/22 04:47 MCH 22 pg (28-32) L 03/26/22 04:47 MCHC 32 % (30-34) 03/26/22 04:47 RDW 18.0 % (13.2-15.2) H 03/26/22 04:47 Plt Count 311 K/mm3 (140-440) 03/26/22 04:47 Lymph % (Auto) 17.1 % (13.4-35.0) 03/26/22 04:47 [place] % (Auto) 9.6 % (0.0-7.3) H 03/26/22 04:47 Eos % (Auto) 0.3 % (0.0-4.3) 03/26/22 04:47 Baso % (Auto) 0.4 % (0.0-1.8) 03/26/22 04:47 Lymph # (Auto) 1.5 K/mm3 (1.2-5.4) 03/26/22 04:47 [place] # (Auto) 0.8 K/mm3 (0.0-0.8) 03/26/22 04:47 Eos # (Auto) 0.0 K/mm3 (0.0-0.4) 03/26/22 04:47 Baso # (Auto) 0.0 K/mm3 (0.0-0.1) 03/26/22 04:47 Seg Neutrophils % 72.6 % (40.0-70.0) H 03/26/22 04:47 Seg Neutrophils # 6.3 K/mm3 (1.8-7.7) 03/26/22 04:47 Sodium 143 mmol/L (137-145) 03/27/22 04:38 Potassium 3.7 mmol/L (3.6-5.0) D 03/27/22 04:38 Chloride 109.9 mmol/L (98-107) H 03/27/22 04:38 Carbon Dioxide 25 mmol/L (22-30) 03/27/22 04:38 Anion Gap 12 mmol/L 03/27/22 04:38 BUN 35 mg/dL (7-17) H 03/27/22 04:38 Creatinine 1.0 mg/dL (0.6-1.2) 03/27/22 04:38 Estimated GFR > 60 ml/min 03/27/22 04:38 BUN/Creatinine Ratio 35 % 03/27/22 04:38 Glucose 171 mg/dL (65-100) H 03/27/22 04:38 POC Glucose 165 mg/dL (70-105) H 03/29/22 12:40 Calcium 9.2 mg/dL (8.4-10.2) 03/27/22 04:38 Total Bilirubin 0.30 mg/dL (0.1-1.2) 03/24/22 18:58 Direct Bilirubin < 0.2 mg/dL (0-0.2) 03/24/22 18:58 Indirect Bilirubin 0.1 mg/dL 03/24/22 18:58 AST 32 units/L (5-40) 03/24/22 18:58 ALT 16 units/L (7-56) 03/24/22 18:58 Alkaline Phosphatase 81 units/L (35-129) 03/24/22 18:58 Total Protein 6.8 g/dL (6.3-8.2) 03/24/22 18:58 Albumin 3.3 g/dL (3.9-5) L 03/24/22 18:58 Albumin/Globulin Ratio 0.9 % 03/24/22 18:58 Urine Color Colorless (Yellow) 03/24/22 Unknown Urine Turbidity Clear (Clear) 03/24/22 Unknown Urine pH 5.0 (5.0-7.0) 03/24/22 Unknown Ur Specific [place] 1.025 (1.003-1.030) 03/24/22 Unknown Urine Protein 30 mg/dl mg/dL (Negative) 03/24/22 Unknown Urine Glucose (UA) Negative mg/dL (Negative) 03/24/22 Unknown Urine Ketones Negative mg/dL (Negative) 03/24/22 Unknown Urine Blood Negative (Negative) 03/24/22 Unknown Urine Nitrite Negative (Negative) 03/24/22 Unknown Urine Bilirubin Negative (Negative) 03/24/22 Unknown Urine Urobilinogen 0.2 mg/dL (<2.0) 03/24/22 Unknown Ur Leukocyte Esterase 75 (Negative) 03/24/22 Unknown Urine WBC (Auto) < 1.0 /HPF (0.0-6.0) 03/24/22 Unknown Urine RBC (Auto) < 1.0 /HPF (0.0-6.0) 03/24/22 Unknown Urine Bacteria (Auto) 1+ /HPF (Negative) 03/24/22 Unknown Coronavirus (PCR) Negative (Negative) 03/29/22 11:00 [place]/IV: Voiding Method External Female Catheter Active Medications - Current Medications Current Medications: Generic Name Dose Route Start Last Admin Trade Name Freq PRN Reason Stop Dose Admin Acetaminophen 650 mg 03/25/22 00:47 03/26/22 22:15 Acetaminophen 325 Mg Tab PO 650 mg Q4H PRN Administration Pain MILD(1-3)/Fever >100.5/VILLANUEVA Amiodarone HCl 200 mg 03/26/22 13:00 03/29/22 10:10 Amiodarone 200 Mg Tab PO 200 mg BID SINCERE Administration Amlodipine Besylate 5 mg 03/25/22 12:00 03/29/22 10:09 Amlodipine 5 Mg Tab PO 5 mg DAILY SINCERE Administration Clonidine HCl 0.1 mg 03/25/22 11:52 Clonidine 0.1 Mg Tab PO Q8H PRN Hypertension Dextrose 50 ml 03/25/22 10:26 Dextrose 50% In Water (25gm) 50 Ml Syringe IV Q30MIN PRN Hypoglycemia Protocol Ferrous Sulfate 325 mg 03/26/22 10:00 03/29/22 10:09 Ferrous Sulfate 325 Mg Tab PO 325 mg QDAY SINCERE Administration Heparin Sodium (Porcine) 5,000 unit 03/25/22 06:00 03/29/22 12:59 Heparin 5,000 Unit/1 Ml Vial SUB-Q 5,000 unit Q8HR SINCERE Administration Hydrochlorothiazide 25 mg 03/25/22 12:00 03/29/22 10:10 Hydrochlorothiazide 25 Mg Tab PO 25 mg QDAY SINCERE Administration Insulin Human Lispro 0 unit 03/26/22 17:00 03/29/22 12:00 Insulin Lispro 100 Unit/Ml SUB-Q 1 unit Q6H SINCERE Administration Protocol Magnesium Hydroxide 30 ml 03/25/22 00:52 Magnesium Hydroxide (Mom) Oral Liqd Udc PO Q4H PRN Constipation Metoprolol Tartrate 100 mg 03/28/22 22:00 03/29/22 10:10 Metoprolol Tartrate 100 Mg Tab PO 100 mg BID SINCERE Administration Morphine Sulfate 2 mg 03/25/22 00:47 03/28/22 10:00 Morphine 2 Mg/1 Ml Inj IV 2 mg Q4H PRN Administration Pain, Moderate (4-6) Morphine Sulfate 4 mg 03/25/22 00:47 Morphine 4 Mg/1 Ml Inj IV Q4H PRN Pain , Severe (7-10) Ondansetron HCl 4 mg 03/25/22 00:47 Ondansetron 4 Mg/2 Ml Inj IV Q8H PRN Nausea And Vomiting Sodium Chloride 10 ml 03/25/22 10:00 03/29/22 10:10 Sodium Chloride 0.9% 10 Ml Flush Syringe IV 10 ml BID SINCERE Administration Sodium Chloride 10 ml 03/25/22 00:47 Sodium Chloride 0.9% 10 Ml Flush Syringe IV PRN PRN LINE FLUSH Nutrition/Malnutrition Assess - Dietary Evaluation Nutrition/Malnutrition Findings: Nutrition Notes Start: 03/26/22 11:41 Freq: Status: Active Protocol: Document 03/28/22 11:23 CELESTINO (Rec: 03/28/22 11:33 CELESTINO [id number]) Nutrition Notes Initial or Follow up Brief Note Other Pertinent Diagnosis AMS, Fever, Dehydration, Atrial Fibrilation/RVR, L-Knee Swelling. Current Diet TF-Jevity 1.2 Chidi @ 60 ml/hr ( from D 03/26). Height 5 ft 6 in Weight 86.2 kg [place] Body Weight (kg) 59.09 BMI 30.7 Weight change and time frame 1.4 Kg body weighty loss in 2 days reported. Weight Status Obese Subjective/Other Information RD consult for routine F/U on TF tolerance/continuation. TF continues as prescribed, no further information available at the time, will assess at F /U. LEGAL PROCESS SPECIALIST note on 03/27/22 11:54: Swallowing function has been assessed. Patient is safe for a pureed diet with thins. Will continue to monitor to determine a diet upgrade. Informed her nurseCarlton. - END OF NOTE. Pt is on Room Air, O2 saturation @ 98%, according to Physical Assessment History notes. Percent of energy/protein needs met: Prescribed TF-Jevity 1.2 Chidi @ 60 ml/hr provides for energy/ protein needs (1,720 Kcal/80 g ) during LOS, 101% Kcal; 100% AA. #2 Nutrition Diagnosis Malnutrition Diagnosis Progress(for reassessment Continues documentation) #1 Nutrition Diagnosis Inadequate protein-energy intake Comments: TF continues as prescribed. LEGAL PROCESS SPECIALIST note on 03/27/22 11:54: Swallowing function has been assessed. Patient is safe for a pureed diet with thins. Will continue to monitor to determine a diet upgrade. Informed her Carlton alcazar. - END OF NOTE. Diagnosis Progress(for reassessment Improved documentation) Is patient on ventilator? No Is Patient Ambulatory and/or Out of Bed No REE-([place]-[facility]. Jeor-confined to bed) 4036.578 Calculation Used [facility]ations [facility] Additional Notes Protein: 1-1.2 g/Kg AdjBW; 69- 83 g/day. Fluids: 1 ml/Kcal, or as per MD. Nutrition Intervention Nutrition Support: Start TF-Jevity 1.2 Chidi @ 60 ml/hr. Flush: 100 ml water Q 4 hr, or as per MD. Kcal 1,720 Protein (gm) 80 Carbohydrates (gm) 243 Fat (gm) 56 Fluid (mL) 1,157 Fiber (gm) 26 % RDI: 101% Kcal; 100% AA. Goal #1 Provide at least 75% of energy /protein needs through Enteral Feeding during LOS. Goal #2 Adjust the dietary intervention to better serve Pt's needs and clinical conditions during LOS. Follow-Up By: 04/04/22 Additional Comments Continue monitoring TF tolerance and BM.
[2022-03-29] MEDS: ACETAMINOPHEN 325 MG TAB PO PRN (16:43)
[2022-03-30] MEDS ORDERED: hydrALAZINE 20 MG/1 ML INJ IV ONE (01:45)
[2022-03-30] MEDS: INSULIN LISPRO 100 UNIT/ML SUB-Q SCH ×3 (05:55→17:17)
[2022-03-30] MEDS: HEPARIN 5,000 UNIT/1 ML VIAL SUB-Q SCH ×3 (05:55→21:00)
[2022-03-30] MEDS: AMIODARONE 200 MG TAB PO SCH ×2 (09:22→21:02)
[2022-03-30] MEDS: hydroCHLOROthiazide 25 MG TAB PO SCH (09:22)
[2022-03-30] MEDS: FERROUS SULFATE 325 MG TAB PO SCH (09:22)
[2022-03-30] MEDS: METOPROLOL TARTRATE 100 MG TAB PO SCH ×2 (09:22→21:01)
[2022-03-30] MEDS: NIFEdipine XL 30 MG TAB PO SCH (09:23)
--- NOTE | 2022-03-30 09:41 | Progress Note ---
Assessment and Plan Paroxysmal atrial fibrillation Current Visit: Yes Status: Acute Plan to address problem: Patient presented with paroxysmal atrial fibrillation, on amiodarone and metoprolol for atrial fibrillation suppression. Due to persistent severe anemia, hematocrit was 27, currently 23, patient is at high risk for oral anticoagulation. Continue metoprolol 100 twice daily and continue amiodarone. Subjective Principal diagnosis: Altered mental status, rapid atrial fibrillation Interval history: Patient appears comfortable not in acute distress. She does not have any cardiac complaints. Telemetry showed patient is sinus tachycardia with frequent PACs in the rates of 100s. Objective Vital Signs Temp Pulse Pulse Resp BP Pulse Ox 03/30/22 08:11 98.7 F 89 18 147/91 97 03/30/22 04:48 99.2 F 89 24 171/74 96 03/30/22 01:19 91 H 183/104 03/30/22 01:00 108 H 18 98 03/30/22 00:01 99.1 F 91 H 24 183/104 97 03/29/22 23:59 183/104 03/29/22 23:58 91 H 188/103 96 03/29/22 22:00 109 H 03/29/22 21:38 96 H 165/85 03/29/22 16:07 99.2 F 97 H 18 165/85 97 03/29/22 13:11 108 H 18 98 03/29/22 11:17 98.6 F 94 H 18 143/71 96 - Physical Examination General: No Apparent Distress, Other (Patient appears lethargic and chronically ill) HEENT: Positive: EOMI Neck: Positive: neck supple Cardiac: Positive: irregularly irregular (Because of frequent PACs), S1/S2 Lungs: Positive: clear to auscultation, No Wheeze, Rales, Rhonchi Neuro: Positive: Weakness (Generalized lethargy) Abdomen: Positive: Soft (Obese) Skin: Positive: Clear Extremities: Absent: edema
--- NOTE | 2022-03-30 09:45 | Progress Note ---
Assessment and Plan Assessment and plan: #Acute metabolic encephalopathyimproving #H/O Schizophrenia and Dementia -patient not at baseline according to family -CT head noncontrast unremarkable. Chest x-ray unremarkable for acute findings. -UA not suggestive of UTI, antibiotics discontinued. -Discontinued risperidone (per conversation with patient's family about it being discontinued at [facility]). Discontinued home Seroquel dose (100mg nightly) due to concern for continued lethargy/drowsiness. Ordering MRI brain with and without contrast to evaluate for possible acute ischemic CVA. Neurology consulted; pending recs. Continue to monitor as sedatives are further metabolized. #Atrial fibrillation with RVRresolved -Status post Cardene drip -Amiodarone drip started by cardiology, continue metoprolol -Echocardiogram shows normal ejection fraction -Unclear if this is persistent versus paroxysmal; anticoagulation held due to high risk of bleed with patient anemia -Cardiology following, assistance appreciated. Continue metoprolol 100mg BID and amiodarone 200mg #Hypokalemiaresolved -Potassium 3.0, supplementation via Dobbhoff ordered -We will repeat level in @1600 -will continue to monitor #Poor PO intake #Volume depletion-improved #Possible dysphagia -patient refusing to eat at ND and refusing medications -Dobhoff in place with tube feeds discontinued upon discharge. Speech evaluation consulted; pured food with thin liquids. #Hypertension -Continue home metoprolol titrate 50 mg twice daily, amlodipine 5 mg, and hydrochlorothiazide 25 mg daily #Osteoarthritis -X-ray of left knee suggestive of arthritis -Supportive care #Fever- resolved -patient without WBC, and had low grade fever 100.4 -no further fever over the last 24 hrs #UTI ruled out #Obesity #Weight loss counseling #Exercise counseling - BMI 30.7 - Counseled patient on the importance of weight loss, incorporating exercise, and dietary changes (lean meats, fresh fruits and vegetables, and water intake). Patient expresses understanding. - Time: +15 min #Advanced care planning -Disease education conducted, care plan discussed, diagnoses discussed, prognosis discussed, and patient acknowledges understanding with care plan -Time: +30 min Social: 03/30/2022. Detailed conversation with the patient's daughter (Ms. Ochoa) about the patient's baseline. Daughter describes the patient as very talkative, conversant, jovial (always singing and laughing), etc. Daughter also added additional information that the patient at her baseline and then acutely declined. MRI brain had not been performed to possibly assess for acute ischemic CVA, and this is prompting further investigation. Daughter endorses risperidone has been discontinued prior to admission. Disposition Plan: Continue medical management Total Time Spent with Patient (Minutes): 45 minutes History Interval history: No acute events overnight. Hospitalist Physical - Constitutional Vitals: Temp Pulse Resp BP Pulse Ox 98.7 F 89 18 147/91 97 03/30/22 08:11 03/30/22 08:11 03/30/22 08:11 03/30/22 08:11 03/30/22 08:11 General appearance: Present: no acute distress, well-nourished, obese - EENT Eyes: Present: PERRL, EOM intact ENT: hearing intact, clear oral mucosa, poor dentition - Neck Neck: Present: supple, normal ROM - Respiratory Respiratory effort: normal Respiratory: bilateral: CTA - Cardiovascular Rhythm: regular Heart Sounds: Present: S1 & S2 - Extremities Extremities: no ischemia, pulses intact, pulses symmetrical, No edema, normal temperature, normal color Peripheral Pulses: within normal limits - Abdominal General gastrointestinal: soft, non-tender, non-distended, normal bowel sounds - Integumentary Integumentary: Present: clear, warm, dry - Psychiatric Psychiatric: other (Unable to fully assess given patient's encephalopathy) - Neurologic Neurologic: moves all extremities, other (Alert and oriented x1) - Allied Health Allied health notes reviewed: nursing Results - Labs CBC & Chem 7: 03/26/22 04:47 03/27/22 04:38 Labs: Laboratory Last Values WBC 8.7 K/mm3 (4.5-11.0) 03/26/22 04:47 RBC 3.48 M/mm3 (3.65-5.03) L 03/26/22 04:47 Hgb 7.6 gm/dl (10.1-14.3) L 03/26/22 04:47 Hct 23.6 % (30.3-42.9) L 03/26/22 04:47 MCV 68 fl (79-97) L 03/26/22 04:47 MCH 22 pg (28-32) L 03/26/22 04:47 MCHC 32 % (30-34) 03/26/22 04:47 RDW 18.0 % (13.2-15.2) H 03/26/22 04:47 Plt Count 311 K/mm3 (140-440) 03/26/22 04:47 Lymph % (Auto) 17.1 % (13.4-35.0) 03/26/22 04:47 Milam % (Auto) 9.6 % (0.0-7.3) H 03/26/22 04:47 Eos % (Auto) 0.3 % (0.0-4.3) 03/26/22 04:47 Baso % (Auto) 0.4 % (0.0-1.8) 03/26/22 04:47 Lymph # (Auto) 1.5 K/mm3 (1.2-5.4) 03/26/22 04:47 Milam # (Auto) 0.8 K/mm3 (0.0-0.8) 03/26/22 04:47 Eos # (Auto) 0.0 K/mm3 (0.0-0.4) 03/26/22 04:47 Baso # (Auto) 0.0 K/mm3 (0.0-0.1) 03/26/22 04:47 Seg Neutrophils % 72.6 % (40.0-70.0) H 03/26/22 04:47 Seg Neutrophils # 6.3 K/mm3 (1.8-7.7) 03/26/22 04:47 Sodium 143 mmol/L (137-145) 03/27/22 04:38 Potassium 3.7 mmol/L (3.6-5.0) D 03/27/22 04:38 Chloride 109.9 mmol/L (98-107) H 03/27/22 04:38 Carbon Dioxide 25 mmol/L (22-30) 03/27/22 04:38 Anion Gap 12 mmol/L 03/27/22 04:38 BUN 35 mg/dL (7-17) H 03/27/22 04:38 Creatinine 1.0 mg/dL (0.6-1.2) 03/27/22 04:38 Estimated GFR > 60 ml/min 03/27/22 04:38 BUN/Creatinine Ratio 35 % 03/27/22 04:38 Glucose 171 mg/dL (65-100) H 03/27/22 04:38 POC Glucose 171 mg/dL (70-105) H 03/30/22 05:51 Calcium 9.2 mg/dL (8.4-10.2) 03/27/22 04:38 Total Bilirubin 0.30 mg/dL (0.1-1.2) 03/24/22 18:58 Direct Bilirubin < 0.2 mg/dL (0-0.2) 03/24/22 18:58 Indirect Bilirubin 0.1 mg/dL 03/24/22 18:58 AST 32 units/L (5-40) 03/24/22 18:58 ALT 16 units/L (7-56) 03/24/22 18:58 Alkaline Phosphatase 81 units/L (35-129) 03/24/22 18:58 Total Protein 6.8 g/dL (6.3-8.2) 03/24/22 18:58 Albumin 3.3 g/dL (3.9-5) L 03/24/22 18:58 Albumin/Globulin Ratio 0.9 % 03/24/22 18:58 Urine Color Colorless (Yellow) 03/24/22 Unknown Urine Turbidity Clear (Clear) 03/24/22 Unknown Urine pH 5.0 (5.0-7.0) 03/24/22 Unknown Ur Specific Blair 1.025 (1.003-1.030) 03/24/22 Unknown Urine Protein 30 mg/dl mg/dL (Negative) 03/24/22 Unknown Urine Glucose (UA) Negative mg/dL (Negative) 03/24/22 Unknown Urine Ketones Negative mg/dL (Negative) 03/24/22 Unknown Urine Blood Negative (Negative) 03/24/22 Unknown Urine Nitrite Negative (Negative) 03/24/22 Unknown Urine Bilirubin Negative (Negative) 03/24/22 Unknown Urine Urobilinogen 0.2 mg/dL (<2.0) 03/24/22 Unknown Ur Leukocyte Esterase 75 (Negative) 03/24/22 Unknown Urine WBC (Auto) < 1.0 /HPF (0.0-6.0) 03/24/22 Unknown Urine RBC (Auto) < 1.0 /HPF (0.0-6.0) 03/24/22 Unknown Urine Bacteria (Auto) 1+ /HPF (Negative) 03/24/22 Unknown Coronavirus (PCR) Negative (Negative) 03/29/22 11:00 Sanches/IV: Voiding Method External Female Catheter Active Medications - Current Medications Current Medications: Generic Name Dose Route Start Last Admin Trade Name Freq PRN Reason Stop Dose Admin Acetaminophen 650 mg 03/25/22 00:47 03/29/22 16:43 Acetaminophen 325 Mg Tab PO 650 mg Q4H PRN Administration Pain MILD(1-3)/Fever >100.5/VILLANUEVA Amiodarone HCl 200 mg 03/26/22 13:00 03/30/22 09:22 Amiodarone 200 Mg Tab PO 200 mg BID SINCERE Administration Clonidine HCl 0.1 mg 03/25/22 11:52 Clonidine 0.1 Mg Tab PO Q8H PRN Hypertension Dextrose 50 ml 03/25/22 10:26 Dextrose 50% In Water (25gm) 50 Ml Syringe IV Q30MIN PRN Hypoglycemia Protocol Ferrous Sulfate 325 mg 03/26/22 10:00 03/30/22 09:22 Ferrous Sulfate 325 Mg Tab PO 325 mg QDAY SINCERE Administration Heparin Sodium (Porcine) 5,000 unit 03/25/22 06:00 03/30/22 05:55 Heparin 5,000 Unit/1 Ml Vial SUB-Q 5,000 unit Q8HR SINCERE Administration Hydrochlorothiazide 50 mg 03/30/22 10:00 03/30/22 09:22 Hydrochlorothiazide 25 Mg Tab PO 50 mg QDAY SINCERE Administration Insulin Human Lispro 0 unit 03/26/22 17:00 03/30/22 05:55 Insulin Lispro 100 Unit/Ml SUB-Q 1 unit Q6H SINCERE Administration Protocol Magnesium Hydroxide 30 ml 03/25/22 00:52 Magnesium Hydroxide (Mom) Oral Liqd Udc PO Q4H PRN Constipation Metoprolol Tartrate 100 mg 03/28/22 22:00 03/30/22 09:22 Metoprolol Tartrate 100 Mg Tab PO 100 mg BID SINCERE Administration Morphine Sulfate 2 mg 03/25/22 00:47 03/28/22 10:00 Morphine 2 Mg/1 Ml Inj IV 2 mg Q4H PRN Administration Pain, Moderate (4-6) Morphine Sulfate 4 mg 03/25/22 00:47 Morphine 4 Mg/1 Ml Inj IV Q4H PRN Pain , Severe (7-10) Nifedipine 30 mg 03/30/22 10:00 03/30/22 09:23 Nifedipine Xl 30 Mg Tab PO 30 mg QDAY SINCERE Administration Ondansetron HCl 4 mg 03/25/22 00:47 Ondansetron 4 Mg/2 Ml Inj IV Q8H PRN Nausea And Vomiting Sodium Chloride 10 ml 03/25/22 10:00 03/30/22 09:23 Sodium Chloride 0.9% 10 Ml Flush Syringe IV 10 ml BID SINCERE Administration Sodium Chloride 10 ml 03/25/22 00:47 Sodium Chloride 0.9% 10 Ml Flush Syringe IV PRN PRN LINE FLUSH Nutrition/Malnutrition Assess - Dietary Evaluation Nutrition/Malnutrition Findings: Nutrition Notes Start: 03/26/22 11:41 Freq: Status: Active Protocol: Document 03/28/22 11:23 CELESTINO (Rec: 03/28/22 11:33 CELESTINO [id number]) Nutrition Notes Initial or Follow up Brief Note Other Pertinent Diagnosis AMS, Fever, Dehydration, Atrial Fibrilation/RVR, L-Knee Swelling. Current Diet TF-Jevity 1.2 Chidi @ 60 ml/hr ( from D 03/26). Height 5 ft 6 in Weight 86.2 kg Worden Body Weight (kg) 59.09 BMI 30.7 Weight change and time frame 1.4 Kg body weighty loss in 2 days reported. Weight Status Obese Subjective/Other Information RD consult for routine F/U on TF tolerance/continuation. TF continues as prescribed, no further information available at the time, will assess at F /U. TRANSMITTER OPERATOR note on 03/27/22 11:54: Swallowing function has been assessed. Patient is safe for a pureed diet with thins. Will continue to monitor to determine a diet upgrade. Informed her nurseCarlton. - END OF NOTE. Pt is on Room Air, O2 saturation @ 98%, according to Physical Assessment History notes. Percent of energy/protein needs met: Prescribed TF-Jevity 1.2 Chidi @ 60 ml/hr provides for energy/ protein needs (1,720 Kcal/80 g ) during LOS, 101% Kcal; 100% AA. #2 Nutrition Diagnosis Malnutrition Diagnosis Progress(for reassessment Continues documentation) #1 Nutrition Diagnosis Inadequate protein-energy intake Comments: TF continues as prescribed. TRANSMITTER OPERATOR note on 03/27/22 11:54: Swallowing function has been assessed. Patient is safe for a pureed diet with thins. Will continue to monitor to determine a diet upgrade. Informed her nurse, Carlton. - END OF NOTE. Diagnosis Progress(for reassessment Improved documentation) Is patient on ventilator? No Is Patient Ambulatory and/or Out of Bed No REE-([facility]-confined to bed) 3240.092 Calculation Used for Recommendations [facility] Additional Notes Protein: 1-1.2 g/Kg AdjBW; 69- 83 g/day. Fluids: 1 ml/Kcal, or as per MD. Nutrition Intervention Nutrition Support: Start TF-Jevity 1.2 Chidi @ 60 ml/hr. Flush: 100 ml water Q 4 hr, or as per MD. Kcal 1,720 Protein (gm) 80 Carbohydrates (gm) 243 Fat (gm) 56 Fluid (mL) 1,157 Fiber (gm) 26 % RDI: 101% Kcal; 100% AA. Goal #1 Provide at least 75% of energy /protein needs through Enteral Feeding during LOS. Goal #2 Adjust the dietary intervention to better serve Pt's needs and clinical conditions during LOS. Follow-Up By: 04/04/22 Additional Comments Continue monitoring TF tolerance and BM.
--- NOTE | 2022-03-30 13:08 | Consultation ---
History of Present Illness Consult date: 03/30/22 Reason for Consult: Encephalopthy History of present illness: The consult is for evaluation of enecephalopthy , per patient she is improving, the patient is not able to open eye . Past History Past Medical History: other (H/O Schizophrenia,H/O Dementia) Past Surgical History: No surgical history Social history: no significant social history Family history: no significant family history Medications and Allergies Allergies Allergy/AdvReac Type Severity Reaction Status Date / Time No Known Allergies Allergy Unverified 03/24/22 17:59 Home Medications Medication Instructions Recorded Confirmed Last Taken Type Acetaminophen [Mapap] 650 mg PO Q12H 03/25/22 03/25/22 Unknown History Ferrous Sulfate [Iron 325 MG] 325 mg PO DAILY 03/25/22 03/25/22 Unknown History Ibuprofen [Motrin] 800 mg PO Q4HR PRN 03/25/22 03/25/22 Unknown History Lispro Insulin [HumaLOG] See Protocol SUB-Q ACHS 03/25/22 03/25/22 Unknown History Metoprolol [Lopressor TAB] 50 mg PO BID 03/25/22 03/25/22 Unknown History QUEtiapine [SEROquel] 100 mg PO QHS 03/25/22 03/25/22 Unknown History amLODIPine [Norvasc] 5 mg PO DAILY 03/25/22 03/25/22 Unknown History cloNIDine [Catapres] 0.1 mg PO Q8H PRN 03/25/22 03/25/22 Unknown History diphenhydrAMINE [Benadryl CAP] 50 mg PO Q4H PRN 03/25/22 03/25/22 Unknown History haloperidoL [Haloperidol] 5 mg PO Q4H PRN 03/25/22 03/25/22 Unknown History hydroCHLOROthiazide [HCTZ] 25 mg PO QDAY 03/25/22 03/25/22 Unknown History metFORMIN [Glucophage] 500 mg PO BID 03/25/22 03/25/22 Unknown History risperiDONE [RisperDAL] 1 mg PO BID 03/25/22 03/25/22 Unknown History Active Meds: Active Medications Acetaminophen (Acetaminophen 325 Mg Tab) 650 mg PO Q4H PRN PRN Reason: Pain MILD(1-3)/Fever >100.5/VILLANUEVA Last Admin: 03/29/22 16:43 Dose: 650 mg Amiodarone HCl (Amiodarone 200 Mg Tab) 200 mg PO BID [facility] Last Admin: 03/30/22 09:22 Dose: 200 mg Clonidine HCl (Clonidine 0.1 Mg Tab) 0.1 mg PO Q8H PRN PRN Reason: Hypertension Dextrose (Dextrose 50% In Water (25gm) 50 Ml Syringe) 50 ml IV Q30MIN PRN; Protocol PRN Reason: Hypoglycemia Ferrous Sulfate (Ferrous Sulfate 325 Mg Tab) 325 mg PO QDAY [facility] Last Admin: 03/30/22 09:22 Dose: 325 mg Heparin Sodium (Porcine) (Heparin 5,000 Unit/1 Ml Vial) 5,000 unit SUB-Q Q8HR [facility] Last Admin: 03/30/22 05:55 Dose: 5,000 unit Hydrochlorothiazide (Hydrochlorothiazide 25 Mg Tab) 50 mg PO QDAY [facility] Last Admin: 03/30/22 09:22 Dose: 50 mg Insulin Human Lispro (Insulin Lispro 100 Unit/Ml) 0 unit SUB-Q Q6H [facility]; Protocol Last Admin: 03/30/22 12:09 Dose: Not Given Magnesium Hydroxide (Magnesium Hydroxide (Mom) Oral Liqd Udc) 30 ml PO Q4H PRN PRN Reason: Constipation Metoprolol Tartrate (Metoprolol Tartrate 100 Mg Tab) 100 mg PO BID [facility] Last Admin: 03/30/22 09:22 Dose: 100 mg Morphine Sulfate (Morphine 2 Mg/1 Ml Inj) 2 mg IV Q4H PRN PRN Reason: Pain, Moderate (4-6) Last Admin: 03/28/22 10:00 Dose: 2 mg Morphine Sulfate (Morphine 4 Mg/1 Ml Inj) 4 mg IV Q4H PRN PRN Reason: Pain , Severe (7-10) Nifedipine (Nifedipine Xl 30 Mg Tab) 30 mg PO QDAY [facility] Last Admin: 03/30/22 09:23 Dose: 30 mg Ondansetron HCl (Ondansetron 4 Mg/2 Ml Inj) 4 mg IV Q8H PRN PRN Reason: Nausea And Vomiting Sodium Chloride (Sodium Chloride 0.9% 10 Ml Flush Syringe) 10 ml IV BID [facility] Last Admin: 03/30/22 09:23 Dose: 10 ml Sodium Chloride (Sodium Chloride 0.9% 10 Ml Flush Syringe) 10 ml IV PRN PRN PRN Reason: LINE FLUSH Physical Examination - Vital Signs Vital Signs: Vital Signs Pulse Resp BP Pulse Ox 78 21 171/87 96 03/24/22 14:49 03/24/22 14:49 03/24/22 14:49 03/24/22 14:49 - Physical Exam Narrative exam: The patient is verbal , no opening of eye, sluggisly follows mid line commands . With Movement reports , patient is unable to move the LE . Gait is not tested . Results - Laboratory Findings CBC and BMP: 03/26/22 04:47 03/27/22 04:38 Abnormal Lab Findings: Abnormal Labs 03/24/22 03/24/22 03/25/22 18:58 18:58 11:39 WBC 11.2 H RBC Hgb 8.8 L Hct 27.7 L MCV 69 L MCH 22 L RDW 18.2 H Lymph % (Auto) 12.0 L Snyder % (Auto) 9.5 H Snyder # (Auto) 1.1 H Seg Neutrophils % 77.8 H Seg Neutrophils # 8.7 H Potassium Chloride BUN 38 H Glucose 143 H POC Glucose 146 H Albumin 3.3 L 03/25/22 03/26/22 03/26/22 17:06 04:47 04:47 WBC RBC 3.48 L Hgb 7.6 L Hct 23.6 L MCV 68 L MCH 22 L RDW 18.0 H Lymph % (Auto) Snyder % (Auto) 9.6 H Snyder # (Auto) Seg Neutrophils % 72.6 H Seg Neutrophils # Potassium 3.0 L D Chloride BUN 30 H Glucose 133 H POC Glucose 113 H Albumin 03/26/22 03/26/22 03/26/22 07:25 11:55 16:14 WBC RBC Hgb Hct MCV MCH RDW Lymph % (Auto) Snyder % (Auto) Snyder # (Auto) Seg Neutrophils % Seg Neutrophils # Potassium Chloride BUN Glucose POC Glucose 106 H 123 H 150 H Albumin 03/26/22 03/27/22 03/27/22 23:16 04:38 05:17 WBC RBC Hgb Hct MCV MCH RDW Lymph % (Auto) Snyder % (Auto) Snyder # (Auto) Seg Neutrophils % Seg Neutrophils # Potassium Chloride 109.9 H BUN 35 H Glucose 171 H POC Glucose 133 H 157 H Albumin 03/27/22 03/27/22 03/27/22 07:21 12:15 16:06 WBC RBC Hgb Hct MCV MCH RDW Lymph % (Auto) Snyder % (Auto) Snyder # (Auto) Seg Neutrophils % Seg Neutrophils # Potassium Chloride BUN Glucose POC Glucose 171 H 173 H 144 H Albumin 03/27/22 03/28/22 03/28/22 23:15 06:00 11:40 WBC RBC Hgb Hct MCV MCH RDW Lymph % (Auto) Snyder % (Auto) Snyder # (Auto) Seg Neutrophils % Seg Neutrophils # Potassium Chloride BUN Glucose POC Glucose 182 H 169 H 169 H Albumin 03/28/22 03/28/22 03/29/22 16:05 23:59 06:07 WBC RBC Hgb Hct MCV MCH RDW Lymph % (Auto) Snyder % (Auto) Snyder # (Auto) Seg Neutrophils % Seg Neutrophils # Potassium Chloride BUN Glucose POC Glucose 139 H 160 H 145 H Albumin 03/29/22 03/29/22 03/29/22 12:40 16:36 22:43 WBC RBC Hgb Hct MCV MCH RDW Lymph % (Auto) Snyder % (Auto) Snyder # (Auto) Seg Neutrophils % Seg Neutrophils # Potassium Chloride BUN Glucose POC Glucose 165 H 145 H 185 H Albumin 03/30/22 03/30/22 05:51 12:00 WBC RBC Hgb Hct MCV MCH RDW Lymph % (Auto) Snyder % (Auto) Snyder # (Auto) Seg Neutrophils % Seg Neutrophils # Potassium Chloride BUN Glucose POC Glucose 171 H 162 H Albumin Assessment and Plan 1. Encephalopathy ? Multifactorial . 2. Awaits MRI Brain . 3. Recommend PT if there is no movement of the LE recommend MRI Cervical Spine . 4. Minimize Sedation . 5. Call Back with Questions . Dr. Shipley
--- NOTE | 2022-03-30 13:17 | Magnetic Resonance Report ---
MRI BRAIN WITHOUT AND WITH CONTRAST INDICATION / CLINICAL INFORMATION: Concern for acute CVA, RT SIDED WEAKNESS PATIENT MOTION, BEST POSSIBLE EXAM.. TECHNIQUE: Multiplanar, multisequence MR images of the brain were obtained. COMPARISON: Head CT on 03/27/2022 FINDINGS: BRAIN / INTRACRANIAL CONTENTS: No acute ischemia, acute hemorrhage, mass effect, midline shift, or hy drocephalus. Severe chronic small vessel ischemic change in the cerebral white matter and multiple l acunar infarcts in the basal ganglia. CRANIOCERVICAL JUNCTION: No significant abnormality. VASCULAR FLOW-VOIDS: No significant abnormality. ORBITS: No significant abnormality of visualized orbits. SINUSES / MASTOIDS: No significant abnormality of visualized sinuses and mastoid air cells. ADDITIONAL FINDINGS: None. IMPRESSION: 1. No acute infarct or other acute abnormality. Signer Name: Temo Gerardo MD Signed: 03/30/2022 1:12 PM Workstation Name: [id number]
--- NOTE | 2022-03-30 13:31 | XRay Report ---
CHEST 1 VIEW 03/30/2022 12:19 PM INDICATION / CLINICAL INFORMATION: Post Dobhoff insertion. COMPARISON: KUB performed on 03/26/2022. One view of the chest performed on 03/24/2022. FINDINGS: SUPPORT DEVICES: A Dobbhoff tube terminates over the proximal gastric body. HEART / MEDIASTINUM: Stable. LUNGS / PLEURA: No significant pulmonary abnormality. No significant pleural effusion. No pneumothora x. ADDITIONAL FINDINGS: The bones are unchanged. IMPRESSION: 1. No acute abnormality of the chest. No significant interval changes. 2. Satisfactory positioning of the Dobbhoff tube. Signer Name: Pasquale Valle MD Signed: 03/30/2022 1:27 PM Workstation Name: [id number]
[2022-03-31] MEDS: INSULIN LISPRO 100 UNIT/ML SUB-Q SCH ×5 (00:37→23:54)
[2022-03-31] MEDS: HEPARIN 5,000 UNIT/1 ML VIAL SUB-Q SCH ×3 (05:47→22:04)
--- NOTE | 2022-03-31 09:31 | Progress Note ---
Assessment and Plan 1. Paroxysmal atrial fibrillation 2. Essential hypertension 3. Altered mental status 4. Obesity unspecified 5. History of schizoaffective disorder 6. Anemia. Plan. Echo show normal left ventricular size and function LVEF 55=60% Patient is currently stable rhythm sinus continue amiodarone and metoprolol. Subjective Date of service: 03/31/22 Principal diagnosis: Altered mental status, rapid atrial fibrillation Interval history: Patient with AMS, in no distress Objective Vital Signs Temp Pulse Pulse Resp BP BP Pulse Ox 03/31/22 07:52 99.3 F 83 20 141/81 98 03/31/22 06:00 99.4 F 89 18 132/81 97 03/31/22 01:00 97 03/30/22 21:01 103 H 144/89 03/30/22 19:52 98.9 F 18 03/30/22 19:50 104 H 18 144/89 97 03/30/22 15:49 98.8 F 93 H 18 122/69 98 03/30/22 13:00 91 H 18 98 03/30/22 12:29 98.1 F 81 17 151/70 98 03/30/22 12:00 81 19 151/70 93 - Physical Examination General: No Apparent Distress, Other (Patient appears lethargic and chronically ill obese) HEENT: Positive: EOMI Neck: Positive: neck supple Cardiac: Positive: Regular Rate, S1/S2, PMI, Dilated, Laterally Displaced Lungs: Positive: clear to auscultation, No Wheeze, Rales, Rhonchi Neuro: Positive: Weakness (Generalized lethargy) Abdomen: Positive: Soft (Obese) Skin: Positive: Clear Extremities: Absent: edema
[2022-03-31] MEDS: hydroCHLOROthiazide 25 MG TAB PO SCH (09:35)
[2022-03-31] MEDS: METOPROLOL TARTRATE 100 MG TAB PO SCH ×2 (09:35→22:04)
[2022-03-31] MEDS: FERROUS SULFATE 325 MG TAB PO SCH (09:35)
[2022-03-31] MEDS: AMIODARONE 200 MG TAB PO SCH ×2 (09:36→22:04)
[2022-03-31] MEDS: NIFEdipine XL 30 MG TAB PO SCH (09:36)
--- NOTE | 2022-03-31 15:17 | XRay Report ---
. ABDOMEN 1 VIEW 03/31/2022 INDICATION / CLINICAL INFORMATION: dobhoff placement. COMPARISON: 03/30/2022 FINDINGS: TUBES / LINES: Weighted enteric tube terminates within the proximal stomach. Advancement should be co nsidered. BOWEL GAS PATTERN: No significant abnormality. FREE AIR / EXTRALUMINAL GAS: None seen. ADDITIONAL FINDINGS: No significant additional findings. IMPRESSION: 1. Weighted enteric tube terminates within the proximal stomach. Advancement should be considered. Signer Name: Jayme Miranda DO Signed: 03/31/2022 3:12 PM Workstation Name: [id number]
[2022-03-31] MEDS: KETOROLAC 30 MG/1 ML INJ IV PRN (17:14)
[2022-04-01] MEDS: KETOROLAC 30 MG/1 ML INJ IV PRN (00:39)
[2022-04-01] MEDS: INSULIN LISPRO 100 UNIT/ML SUB-Q SCH ×3 (05:14→16:46)
[2022-04-01] MEDS: HEPARIN 5,000 UNIT/1 ML VIAL SUB-Q SCH ×3 (05:14→21:49)
--- NOTE | 2022-04-01 08:32 | Progress Note ---
Assessment and Plan Assessment and plan: #Acute metabolic encephalopathyimproving #H/O Schizophrenia and Dementia -patient not at baseline according to family -CT head noncontrast unremarkable. Chest x-ray unremarkable for acute findings. -UA not suggestive of UTI, antibiotics discontinued. -Discontinued risperidone (per conversation with patient's family about [facility] Discontinued home Seroquel dose (100mg nightly) due to concern for continued lethargy/drowsiness. Unremarkable MRI brain with and without contrast for acute ischemic CVA. Neurology consulted; appreciate recs. Continue to monitor as sedatives are further metabolized. #Atrial fibrillation with RVRresolved -Status post Cardene drip -Amiodarone drip started by cardiology, continue metoprolol -Echocardiogram shows normal ejection fraction -Unclear if this is persistent versus paroxysmal; anticoagulation held due to high risk of bleed with patient anemia -Cardiology following, assistance appreciated. Continue metoprolol 100mg BID and amiodarone 200mg #Hypokalemiaresolved -Potassium 3.0, supplementation via Dobbhoff ordered -We will repeat level in @1600 -will continue to monitor #Poor PO intake #Volume depletion-improved #Possible dysphagia -patient refusing to eat at [place] and refusing medications -Dobhoff in place with tube feeds discontinued upon discharge. Speech evaluation consulted; pured food with thin liquids. #Hypertension -Continue home metoprolol titrate 50 mg twice daily, amlodipine 5 mg, and hydrochlorothiazide 25 mg daily #Osteoarthritis -X-ray of left knee suggestive of arthritis -Supportive care #Fever- resolved -patient without WBC, and had low grade fever 100.4 -no further fever over the last 24 hrs #UTI ruled out #Obesity #Weight loss counseling #Exercise counseling - BMI 30.7 - Counseled patient on the importance of weight loss, incorporating exercise, and dietary changes (lean meats, fresh fruits and vegetables, and water intake). Patient expresses understanding. - Time: +15 min #Advanced care planning -Disease education conducted, care plan discussed, diagnoses discussed, prognosis discussed, and patient acknowledges understanding with care plan -Time: +30 min Social: 03/30/2022. Detailed conversation with the patient's daughter (Ms. Ochoa) about the patient's baseline. Daughter describes the patient as very talkative, conversant, jovial (always singing and laughing), etc. Daughter also added additional information that the patient at her baseline and then acutely declined. MRI brain had not been performed to possibly assess for acute ischemic CVA, and this is prompting further investigation. Daughter endorses risperidone has been discontinued prior to admission. Disposition Plan: Continue medical management Total Time Spent with Patient (Minutes): 45 min History Interval history: No acute events overnight. Hospitalist Physical - Constitutional Vitals: Temp Pulse Resp BP Pulse Ox 97.4 F L 71 18 110/59 96 04/01/22 03:42 04/01/22 03:42 04/01/22 03:42 04/01/22 03:42 04/01/22 03:42 General appearance: Present: no acute distress, well-nourished, obese - EENT Eyes: Present: PERRL, EOM intact ENT: hearing intact, clear oral mucosa, edentulous, other (NG tube in place) - Neck Neck: Present: supple, normal ROM - Respiratory Respiratory effort: normal Respiratory: bilateral: CTA - Cardiovascular Rhythm: regular Heart Sounds: Present: S1 & S2 - Extremities Extremities: no ischemia, pulses intact, pulses symmetrical, No edema, normal temperature, normal color Extremity abnormal: tenderness (tenderness of R knee on moderate palpation) Peripheral Pulses: within normal limits - Abdominal General gastrointestinal: soft, non-tender, non-distended, normal bowel sounds - Integumentary Integumentary: Present: clear, warm, dry - Psychiatric Psychiatric: other (Dementia at baseline; improvement in lethargy/drowsiness) - Neurologic Neurologic: CNII-XII intact, moves all extremities - Allied Health Allied health notes reviewed: nursing, case management Results - Labs CBC & Chem 7: 03/26/22 04:47 03/27/22 04:38 Labs: Laboratory Last Values WBC 8.7 K/mm3 (4.5-11.0) 03/26/22 04:47 RBC 3.48 M/mm3 (3.65-5.03) L 03/26/22 04:47 Hgb 7.6 gm/dl (10.1-14.3) L 03/26/22 04:47 Hct 23.6 % (30.3-42.9) L 03/26/22 04:47 MCV 68 fl (79-97) L 03/26/22 04:47 MCH 22 pg (28-32) L 03/26/22 04:47 MCHC 32 % (30-34) 03/26/22 04:47 RDW 18.0 % (13.2-15.2) H 03/26/22 04:47 Plt Count 311 K/mm3 (140-440) 03/26/22 04:47 Lymph % (Auto) 17.1 % (13.4-35.0) 03/26/22 04:47 Long % (Auto) 9.6 % (0.0-7.3) H 03/26/22 04:47 Eos % (Auto) 0.3 % (0.0-4.3) 03/26/22 04:47 Baso % (Auto) 0.4 % (0.0-1.8) 03/26/22 04:47 Lymph # (Auto) 1.5 K/mm3 (1.2-5.4) 03/26/22 04:47 Long # (Auto) 0.8 K/mm3 (0.0-0.8) 03/26/22 04:47 Eos # (Auto) 0.0 K/mm3 (0.0-0.4) 03/26/22 04:47 Baso # (Auto) 0.0 K/mm3 (0.0-0.1) 03/26/22 04:47 Seg Neutrophils % 72.6 % (40.0-70.0) H 03/26/22 04:47 Seg Neutrophils # 6.3 K/mm3 (1.8-7.7) 03/26/22 04:47 Sodium 143 mmol/L (137-145) 03/27/22 04:38 Potassium 3.7 mmol/L (3.6-5.0) D 03/27/22 04:38 Chloride 109.9 mmol/L (98-107) H 03/27/22 04:38 Carbon Dioxide 25 mmol/L (22-30) 03/27/22 04:38 Anion Gap 12 mmol/L 03/27/22 04:38 BUN 35 mg/dL (7-17) H 03/27/22 04:38 Creatinine 1.0 mg/dL (0.6-1.2) 03/27/22 04:38 Estimated GFR > 60 ml/min 03/27/22 04:38 BUN/Creatinine Ratio 35 % 03/27/22 04:38 Glucose 171 mg/dL (65-100) H 03/27/22 04:38 POC Glucose 220 mg/dL (70-105) H 04/01/22 05:27 Calcium 9.2 mg/dL (8.4-10.2) 03/27/22 04:38 Total Bilirubin 0.30 mg/dL (0.1-1.2) 03/24/22 18:58 Direct Bilirubin < 0.2 mg/dL (0-0.2) 03/24/22 18:58 Indirect Bilirubin 0.1 mg/dL 03/24/22 18:58 AST 32 units/L (5-40) 03/24/22 18:58 ALT 16 units/L (7-56) 03/24/22 18:58 Alkaline Phosphatase 81 units/L (35-129) 03/24/22 18:58 Total Protein 6.8 g/dL (6.3-8.2) 03/24/22 18:58 Albumin 3.3 g/dL (3.9-5) L 03/24/22 18:58 Albumin/Globulin Ratio 0.9 % 03/24/22 18:58 Urine Color Colorless (Yellow) 03/24/22 Unknown Urine Turbidity Clear (Clear) 03/24/22 Unknown Urine pH 5.0 (5.0-7.0) 03/24/22 Unknown Ur Specific [place] 1.025 (1.003-1.030) 03/24/22 Unknown Urine Protein 30 mg/dl mg/dL (Negative) 03/24/22 Unknown Urine Glucose (UA) Negative mg/dL (Negative) 03/24/22 Unknown Urine Ketones Negative mg/dL (Negative) 03/24/22 Unknown Urine Blood Negative (Negative) 03/24/22 Unknown Urine Nitrite Negative (Negative) 03/24/22 Unknown Urine Bilirubin Negative (Negative) 03/24/22 Unknown Urine Urobilinogen 0.2 mg/dL (<2.0) 03/24/22 Unknown Ur Leukocyte Esterase 75 (Negative) 03/24/22 Unknown Urine WBC (Auto) < 1.0 /HPF (0.0-6.0) 03/24/22 Unknown Urine RBC (Auto) < 1.0 /HPF (0.0-6.0) 03/24/22 Unknown Urine Bacteria (Auto) 1+ /HPF (Negative) 03/24/22 Unknown Coronavirus (PCR) Negative (Negative) 03/29/22 11:00 Sanches/IV: Voiding Method External Female Catheter Active Medications - Current Medications Current Medications: Generic Name Dose Route Start Last Admin Trade Name Freq PRN Reason Stop Dose Admin Acetaminophen 650 mg 03/25/22 00:47 03/29/22 16:43 Acetaminophen 325 Mg Tab PO 650 mg Q4H PRN Administration Pain MILD(1-3)/Fever >100.5/VILLANUEVA Amiodarone HCl 200 mg 03/26/22 13:00 03/31/22 22:04 Amiodarone 200 Mg Tab PO 200 mg BID SINCERE Administration Clonidine HCl 0.1 mg 03/25/22 11:52 Clonidine 0.1 Mg Tab PO Q8H PRN Hypertension Dextrose 50 ml 03/25/22 10:26 Dextrose 50% In Water (25gm) 50 Ml Syringe IV Q30MIN PRN Hypoglycemia Protocol Ferrous Sulfate 325 mg 03/26/22 10:00 03/31/22 09:35 Ferrous Sulfate 325 Mg Tab PO 325 mg QDAY SINCERE Administration Heparin Sodium (Porcine) 5,000 unit 03/25/22 06:00 04/01/22 05:14 Heparin 5,000 Unit/1 Ml Vial SUB-Q 5,000 unit Q8HR SINCERE Administration Hydrochlorothiazide 50 mg 03/30/22 10:00 03/31/22 09:35 Hydrochlorothiazide 25 Mg Tab PO 50 mg QDAY SINCERE Administration Insulin Human Lispro 0 unit 03/26/22 17:00 04/01/22 05:14 Insulin Lispro 100 Unit/Ml SUB-Q 2 unit Q6H SINCERE Administration Protocol Insulin Human Regular 5 units 04/01/22 08:28 Insulin Regular, Human 100 Units/1 Ml SUB-Q 04/01/22 08:29 ONCE ONE Ketorolac Tromethamine 15 mg 03/31/22 16:27 04/01/22 00:39 Ketorolac 30 Mg/1 Ml Inj IV 04/05/22 16:26 15 mg Q6H PRN Administration Pain, Mild (1-3) Magnesium Hydroxide 30 ml 03/25/22 00:52 Magnesium Hydroxide (Mom) Oral Liqd Udc PO Q4H PRN Constipation Metformin HCl 500 mg 04/01/22 10:00 Metformin 500 Mg Tab PO BID SINCERE Metoprolol Tartrate 100 mg 03/28/22 22:00 03/31/22 22:04 Metoprolol Tartrate 100 Mg Tab PO 100 mg BID SINCERE Administration Morphine Sulfate 2 mg 03/25/22 00:47 03/28/22 10:00 Morphine 2 Mg/1 Ml Inj IV 2 mg Q4H PRN Administration Pain, Moderate (4-6) Morphine Sulfate 4 mg 03/25/22 00:47 Morphine 4 Mg/1 Ml Inj IV Q4H PRN Pain , Severe (7-10) Nifedipine 30 mg 03/30/22 10:00 03/31/22 09:36 Nifedipine Xl 30 Mg Tab PO 30 mg QDAY SINCERE Administration Ondansetron HCl 4 mg 03/25/22 00:47 Ondansetron 4 Mg/2 Ml Inj IV Q8H PRN Nausea And Vomiting Sodium Chloride 10 ml 03/25/22 10:00 03/31/22 22:04 Sodium Chloride 0.9% 10 Ml Flush Syringe IV 10 ml BID SINCERE Administration Sodium Chloride 10 ml 03/25/22 00:47 Sodium Chloride 0.9% 10 Ml Flush Syringe IV PRN PRN LINE FLUSH Nutrition/Malnutrition Assess - Dietary Evaluation Nutrition/Malnutrition Findings: Nutrition Notes Start: 03/26/22 11:41 Freq: Status: Active Protocol: Document 03/28/22 11:23 CELESTINO (Rec: 03/28/22 11:33 CELESTINO [id number]) Nutrition Notes Initial or Follow up Brief Note Other Pertinent Diagnosis AMS, Fever, Dehydration, Atrial Fibrilation/RVR, L-Knee Swelling. Current Diet TF-Jevity 1.2 Chidi @ 60 ml/hr ( from D 03/26). Height 5 ft 6 in Weight 86.2 kg [place] Body Weight (kg) 59.09 BMI 30.7 Weight change and time frame 1.4 Kg body weighty loss in 2 days reported. Weight Status Obese Subjective/Other Information RD consult for routine F/U on TF tolerance/continuation. TF continues as prescribed, no further information available at the time, will assess at F /U. CRIMINAL COURT JUDGE note on 03/27/22 11:54: Swallowing function has been assessed. Patient is safe for a pureed diet with thins. Will continue to monitor to determine a diet upgrade. Informed her nurseCarlton. - END OF NOTE. Pt is on Room Air, O2 saturation @ 98%, according to Physical Assessment History notes. Percent of energy/protein needs met: Prescribed TF-Jevity 1.2 Chidi @ 60 ml/hr provides for energy/ protein needs (1,720 Kcal/80 g ) during LOS, 101% Kcal; 100% AA. #2 Nutrition Diagnosis Malnutrition Diagnosis Progress(for reassessment Continues documentation) #1 Nutrition Diagnosis Inadequate protein-energy intake Comments: TF continues as prescribed. CRIMINAL COURT JUDGE note on 03/27/22 11:54: Swallowing function has been assessed. Patient is safe for a pureed diet with thins. Will continue to monitor to determine a diet upgrade. Informed her nurse, Carlton. - END OF NOTE. Diagnosis Progress(for reassessment Improved documentation) Is patient on ventilator? No Is Patient Ambulatory and/or Out of Bed No REE-([place]-[facility] Jeor-confined to bed) 3742.091 [facility] Additional Notes Protein: 1-1.2 g/Kg AdjBW; 69- 83 g/day. Fluids: 1 ml/Kcal, or as per MD. Nutrition Intervention Nutrition Support: Start TF-Jevity 1.2 Chidi @ 60 ml/hr. Flush: 100 ml water Q 4 hr, or as per MD. Kcal 1,720 Protein (gm) 80 Carbohydrates (gm) 243 Fat (gm) 56 Fluid (mL) 1,157 Fiber (gm) 26 % RDI: 101% Kcal; 100% AA. Goal #1 Provide at least 75% of energy /protein needs through Enteral Feeding during LOS. Goal #2 Adjust the dietary intervention to better serve Pt's needs and clinical conditions during LOS. Follow-Up By: 04/04/22 Additional Comments Continue monitoring TF tolerance and BM.
--- NOTE | 2022-04-01 08:34 | Progress Note ---
Assessment and Plan Assessment and plan: #Acute metabolic encephalopathyimproving #H/O Schizophrenia and Dementia -patient not at baseline according to family -CT head noncontrast unremarkable. Chest x-ray unremarkable for acute findings. -UA not suggestive of UTI, antibiotics discontinued. -Discontinued risperidone (per conversation with patient's family about [facility] Discontinued home Seroquel dose (100mg nightly) due to concern for continued lethargy/drowsiness. Unremarkable MRI brain with and without contrast for acute ischemic CVA. Neurology consulted; appreciate recs. Continue to monitor as sedatives are further metabolized. #Atrial fibrillation with RVRresolved -Status post Cardene drip -Amiodarone drip started by cardiology, continue metoprolol -Echocardiogram shows normal ejection fraction -Unclear if this is persistent versus paroxysmal; anticoagulation held due to high risk of bleed with patient anemia -Cardiology following, assistance appreciated. Continue metoprolol 100mg BID and amiodarone 200mg #Hypokalemiaresolved -Potassium 3.0, supplementation via Dobbhoff ordered -We will repeat level in @1600 -will continue to monitor #Poor PO intake #Volume depletion-improved #Possible dysphagia -patient refusing to eat at [place] and refusing medications -Dobhoff in place with tube feeds discontinued upon discharge. Speech evaluation consulted; pured food with thin liquids. #Hypertension -Continue home metoprolol titrate 50 mg twice daily, amlodipine 5 mg, and hydrochlorothiazide 25 mg daily #Non-insulin dependent type II diabetes mellitus - hemoglobin A1c: Unknown - home regimen: Metformin 500 mg twice daily - current regimen: Metformin 500 mg twice daily + moderate SSI - blood glucose goal 140-180 while inpatient - continue to monitor #Osteoarthritis -X-ray of left knee suggestive of arthritis -Supportive care #Fever- resolved -patient without WBC, and had low grade fever 100.4 -no further fever over the last 24 hrs #UTI ruled out #Obesity #Weight loss counseling #Exercise counseling - BMI 30.7 - Counseled patient on the importance of weight loss, incorporating exercise, and dietary changes (lean meats, fresh fruits and vegetables, and water intake). Patient expresses understanding. - Time: +15 min #Advanced care planning -Disease education conducted, care plan discussed, diagnoses discussed, prognosis discussed, and patient acknowledges understanding with care plan -Time: +30 min Social: 03/30/2022. Detailed conversation with the patient's daughter (Ms. Ochoa) about the patient's baseline. Daughter describes the patient as very talkative, conversant, jovial (always singing and laughing), etc. Daughter also added additional information that the patient at her baseline and then acutely declined. MRI brain had not been performed to possibly assess for acute ischemic CVA, and this is prompting further investigation. Daughter endorses risperidone has been discontinued prior to admission. Disposition Plan: Continue medical management Total Time Spent with Patient (Minutes): 45 min History Interval history: No acute events overnight. Hospitalist Physical - Constitutional Vitals: Temp Pulse Resp BP Pulse Ox 97.4 F L 71 18 110/59 96 04/01/22 03:42 04/01/22 03:42 04/01/22 03:42 04/01/22 03:42 04/01/22 03:42 General appearance: Present: no acute distress, well-nourished, obese - EENT Eyes: Present: PERRL, EOM intact ENT: hearing intact, clear oral mucosa, edentulous, other (NG tube in place) - Neck Neck: Present: supple, normal ROM - Respiratory Respiratory effort: normal Respiratory: bilateral: CTA - Cardiovascular Rhythm: regular Heart Sounds: Present: S1 & S2 - Extremities Extremities: no ischemia, pulses intact, pulses symmetrical, No edema, normal temperature, normal color Extremity abnormal: tenderness (tenderness of R knee on moderate palpation) Peripheral Pulses: within normal limits - Abdominal General gastrointestinal: soft, non-tender, non-distended, normal bowel sounds - Integumentary Integumentary: Present: clear, warm, dry - Psychiatric Psychiatric: appropriate mood/affect, other (improved lethargy; more conversant) - Neurologic Neurologic: CNII-XII intact, moves all extremities - Allied Health Allied health notes reviewed: nursing Results - Labs CBC & Chem 7: 03/26/22 04:47 03/27/22 04:38 Labs: Laboratory Last Values WBC 8.7 K/mm3 (4.5-11.0) 03/26/22 04:47 RBC 3.48 M/mm3 (3.65-5.03) L 03/26/22 04:47 Hgb 7.6 gm/dl (10.1-14.3) L 03/26/22 04:47 Hct 23.6 % (30.3-42.9) L 03/26/22 04:47 MCV 68 fl (79-97) L 03/26/22 04:47 MCH 22 pg (28-32) L 03/26/22 04:47 MCHC 32 % (30-34) 03/26/22 04:47 RDW 18.0 % (13.2-15.2) H 03/26/22 04:47 Plt Count 311 K/mm3 (140-440) 03/26/22 04:47 Lymph % (Auto) 17.1 % (13.4-35.0) 03/26/22 04:47 [place] % (Auto) 9.6 % (0.0-7.3) H 03/26/22 04:47 Eos % (Auto) 0.3 % (0.0-4.3) 03/26/22 04:47 Baso % (Auto) 0.4 % (0.0-1.8) 03/26/22 04:47 Lymph # (Auto) 1.5 K/mm3 (1.2-5.4) 03/26/22 04:47 [place] # (Auto) 0.8 K/mm3 (0.0-0.8) 03/26/22 04:47 Eos # (Auto) 0.0 K/mm3 (0.0-0.4) 03/26/22 04:47 Baso # (Auto) 0.0 K/mm3 (0.0-0.1) 03/26/22 04:47 Seg Neutrophils % 72.6 % (40.0-70.0) H 03/26/22 04:47 Seg Neutrophils # 6.3 K/mm3 (1.8-7.7) 03/26/22 04:47 Sodium 143 mmol/L (137-145) 03/27/22 04:38 Potassium 3.7 mmol/L (3.6-5.0) D 03/27/22 04:38 Chloride 109.9 mmol/L (98-107) H 03/27/22 04:38 Carbon Dioxide 25 mmol/L (22-30) 03/27/22 04:38 Anion Gap 12 mmol/L 03/27/22 04:38 BUN 35 mg/dL (7-17) H 03/27/22 04:38 Creatinine 1.0 mg/dL (0.6-1.2) 03/27/22 04:38 Estimated GFR > 60 ml/min 03/27/22 04:38 BUN/Creatinine Ratio 35 % 03/27/22 04:38 Glucose 171 mg/dL (65-100) H 03/27/22 04:38 POC Glucose 220 mg/dL (70-105) H 04/01/22 05:27 Calcium 9.2 mg/dL (8.4-10.2) 03/27/22 04:38 Total Bilirubin 0.30 mg/dL (0.1-1.2) 03/24/22 18:58 Direct Bilirubin < 0.2 mg/dL (0-0.2) 03/24/22 18:58 Indirect Bilirubin 0.1 mg/dL 03/24/22 18:58 AST 32 units/L (5-40) 03/24/22 18:58 ALT 16 units/L (7-56) 03/24/22 18:58 Alkaline Phosphatase 81 units/L (35-129) 03/24/22 18:58 Total Protein 6.8 g/dL (6.3-8.2) 03/24/22 18:58 Albumin 3.3 g/dL (3.9-5) L 03/24/22 18:58 Albumin/Globulin Ratio 0.9 % 03/24/22 18:58 Urine Color Colorless (Yellow) 03/24/22 Unknown Urine Turbidity Clear (Clear) 03/24/22 Unknown Urine pH 5.0 (5.0-7.0) 03/24/22 Unknown Ur Specific [place] 1.025 (1.003-1.030) 03/24/22 Unknown Urine Protein 30 mg/dl mg/dL (Negative) 03/24/22 Unknown Urine Glucose (UA) Negative mg/dL (Negative) 03/24/22 Unknown Urine Ketones Negative mg/dL (Negative) 03/24/22 Unknown Urine Blood Negative (Negative) 03/24/22 Unknown Urine Nitrite Negative (Negative) 03/24/22 Unknown Urine Bilirubin Negative (Negative) 03/24/22 Unknown Urine Urobilinogen 0.2 mg/dL (<2.0) 03/24/22 Unknown Ur Leukocyte Esterase 75 (Negative) 03/24/22 Unknown Urine WBC (Auto) < 1.0 /HPF (0.0-6.0) 03/24/22 Unknown Urine RBC (Auto) < 1.0 /HPF (0.0-6.0) 03/24/22 Unknown Urine Bacteria (Auto) 1+ /HPF (Negative) 03/24/22 Unknown Coronavirus (PCR) Negative (Negative) 03/29/22 11:00 Sanches/IV: Voiding Method External Female Catheter Active Medications - Current Medications Current Medications: Generic Name Dose Route Start Last Admin Trade Name Freq PRN Reason Stop Dose Admin Acetaminophen 650 mg 03/25/22 00:47 03/29/22 16:43 Acetaminophen 325 Mg Tab PO 650 mg Q4H PRN Administration Pain MILD(1-3)/Fever >100.5/VILLANUEVA Amiodarone HCl 200 mg 03/26/22 13:00 03/31/22 22:04 Amiodarone 200 Mg Tab PO 200 mg BID SINCERE Administration Clonidine HCl 0.1 mg 03/25/22 11:52 Clonidine 0.1 Mg Tab PO Q8H PRN Hypertension Dextrose 50 ml 03/25/22 10:26 Dextrose 50% In Water (25gm) 50 Ml Syringe IV Q30MIN PRN Hypoglycemia Protocol Ferrous Sulfate 325 mg 03/26/22 10:00 03/31/22 09:35 Ferrous Sulfate 325 Mg Tab PO 325 mg QDAY SINCERE Administration Heparin Sodium (Porcine) 5,000 unit 03/25/22 06:00 04/01/22 05:14 Heparin 5,000 Unit/1 Ml Vial SUB-Q 5,000 unit Q8HR SINCERE Administration Hydrochlorothiazide 50 mg 03/30/22 10:00 03/31/22 09:35 Hydrochlorothiazide 25 Mg Tab PO 50 mg QDAY SINCERE Administration Insulin Human Lispro 0 unit 03/26/22 17:00 04/01/22 05:14 Insulin Lispro 100 Unit/Ml SUB-Q 2 unit Q6H SINCERE Administration Protocol Insulin Human Regular 5 units 04/01/22 08:28 Insulin Regular, Human 100 Units/1 Ml SUB-Q 04/01/22 08:29 ONCE ONE Ketorolac Tromethamine 15 mg 03/31/22 16:27 04/01/22 00:39 Ketorolac 30 Mg/1 Ml Inj IV 04/05/22 16:26 15 mg Q6H PRN Administration Pain, Mild (1-3) Magnesium Hydroxide 30 ml 03/25/22 00:52 Magnesium Hydroxide (Mom) Oral Liqd Udc PO Q4H PRN Constipation Metformin HCl 500 mg 04/01/22 10:00 Metformin 500 Mg Tab PO BID SINCERE Metoprolol Tartrate 100 mg 03/28/22 22:00 03/31/22 22:04 Metoprolol Tartrate 100 Mg Tab PO 100 mg BID SINCERE Administration Morphine Sulfate 2 mg 03/25/22 00:47 03/28/22 10:00 Morphine 2 Mg/1 Ml Inj IV 2 mg Q4H PRN Administration Pain, Moderate (4-6) Morphine Sulfate 4 mg 03/25/22 00:47 Morphine 4 Mg/1 Ml Inj IV Q4H PRN Pain , Severe (7-10) Nifedipine 30 mg 03/30/22 10:00 03/31/22 09:36 Nifedipine Xl 30 Mg Tab PO 30 mg QDAY SINCERE Administration Ondansetron HCl 4 mg 03/25/22 00:47 Ondansetron 4 Mg/2 Ml Inj IV Q8H PRN Nausea And Vomiting Sodium Chloride 10 ml 03/25/22 10:00 03/31/22 22:04 Sodium Chloride 0.9% 10 Ml Flush Syringe IV 10 ml BID SINCERE Administration Sodium Chloride 10 ml 03/25/22 00:47 Sodium Chloride 0.9% 10 Ml Flush Syringe IV PRN PRN LINE FLUSH Nutrition/Malnutrition Assess - Dietary Evaluation Nutrition/Malnutrition Findings: Nutrition Notes Start: 03/26/22 11:41 Freq: Status: Active Protocol: Document 03/28/22 11:23 CELESTINO (Rec: 03/28/22 11:33 CELESTINO [id number]) Nutrition Notes Initial or Follow up Brief Note Other Pertinent Diagnosis AMS, Fever, Dehydration, Atrial Fibrilation/RVR, L-Knee Swelling. Current Diet TF-Jevity 1.2 Chidi @ 60 ml/hr ( from D 03/26). Height 5 ft 6 in Weight 86.2 kg [place] Body Weight (kg) 59.09 BMI 30.7 Weight change and time frame 1.4 Kg body weighty loss in 2 days reported. Weight Status Obese Subjective/Other Information RD consult for routine F/U on TF tolerance/continuation. TF continues as prescribed, no further information available at the time, will assess at F /U. DOLL MAKER note on 03/27/22 11:54: Swallowing function has been assessed. Patient is safe for a pureed diet with thins. Will continue to monitor to determine a diet upgrade. Informed her nurseCarlton. - END OF NOTE. Pt is on Room Air, O2 saturation @ 98%, according to Physical Assessment History notes. Percent of energy/protein needs met: Prescribed TF-Jevity 1.2 Chidi @ 60 ml/hr provides for energy/ protein needs (1,720 Kcal/80 g ) during LOS, 101% Kcal; 100% AA. #2 Nutrition Diagnosis Malnutrition Diagnosis Progress(for reassessment Continues documentation) #1 Nutrition Diagnosis Inadequate protein-energy intake Comments: TF continues as prescribed. DOLL MAKER note on 03/27/22 11:54: Swallowing function has been assessed. Patient is safe for a pureed diet with thins. Will continue to monitor to determine a diet upgrade. Informed her nurseCarlton. - END OF NOTE. Diagnosis Progress(for reassessment Improved documentation) Is patient on ventilator? No Is Patient Ambulatory and/or Out of Bed No [facility] 1690.092 Calculation Used for [facility]ations [facility] Additional Notes Protein: 1-1.2 g/Kg AdjBW; 69- 83 g/day. Fluids: 1 ml/Kcal, or as per MD. Nutrition Intervention Nutrition Support: Start TF-Jevity 1.2 Chidi @ 60 ml/hr. Flush: 100 ml water Q 4 hr, or as per MD. Kcal 1,720 Protein (gm) 80 Carbohydrates (gm) 243 Fat (gm) 56 Fluid (mL) 1,157 Fiber (gm) 26 % RDI: 101% Kcal; 100% AA. Goal #1 Provide at least 75% of energy /protein needs through Enteral Feeding during LOS. Goal #2 Adjust the dietary intervention to better serve Pt's needs and clinical conditions during LOS. Follow-Up By: 04/04/22 Additional Comments Continue monitoring TF tolerance and BM.
[2022-04-01] MEDS ORDERED: INSULIN REGULAR, HUMAN 100 UNITS/1 ML SUB-Q SCH (09:00)
[2022-04-01] MEDS: hydroCHLOROthiazide 25 MG TAB PO SCH (09:20)
[2022-04-01] MEDS: METOPROLOL TARTRATE 100 MG TAB PO SCH ×2 (09:21→21:49)
[2022-04-01] MEDS: metFORMIN 500 MG TAB PO SCH ×2 (09:21→16:45)
[2022-04-01] MEDS: FERROUS SULFATE 325 MG TAB PO SCH (09:21)
[2022-04-01] MEDS: NIFEdipine XL 30 MG TAB PO SCH ×2 (09:21→12:40)
[2022-04-01] MEDS: AMIODARONE 200 MG TAB PO SCH ×2 (09:21→21:51)
--- NOTE | 2022-04-01 11:00 | Progress Note ---
Assessment and Plan 1. Paroxysmal atrial fibrillation currently in sinus rhythm 2. Essential hypertension 3. Altered mental status improving 4. Obesity unspecified 5. History of schizoaffective disorder 6. Anemia. Plan. Echo show normal left ventricular size and function LVEF 55=60% Patient is currently stable rhythm sinus continue Amiodarone and Metoprolol. Subjective Date of service: 04/01/22 Principal diagnosis: Altered mental status, rapid atrial fibrillation Interval history: Patient is more alert today compared to yesterday. Appears to be in no apparent distress Objective Vital Signs Temp Pulse Pulse Resp BP Pulse Ox 04/01/22 08:06 97.4 F L 76 18 130/68 98 04/01/22 03:42 97.4 F L 71 18 110/59 96 03/31/22 23:33 91 H 17 97 03/31/22 23:32 98.8 F 18 130/71 03/31/22 22:04 80 135/68 03/31/22 22:00 91 H 03/31/22 19:06 98.7 F 91 H 18 135/68 94 03/31/22 16:05 99.0 F 84 18 153/78 96 03/31/22 13:00 96 - Physical Examination General: No Apparent Distress, Other (Patient appears lethargic and chronically ill obese) HEENT: Positive: EOMI Neck: Positive: neck supple Cardiac: Positive: Regular Rate, S1/S2, Dilated, Laterally Displaced. Negative: S3, S4 Lungs: Positive: clear to auscultation, No Wheeze, Rales, Rhonchi Neuro: Positive: Weakness (Generalized lethargy) Abdomen: Positive: Soft (Obese) Skin: Positive: Clear Extremities: Absent: edema
[2022-04-01] MEDS: amLODIPine 10 MG TAB PO SCH (16:45)
[2022-04-02] MEDS: HEPARIN 5,000 UNIT/1 ML VIAL SUB-Q SCH ×3 (05:22→22:05)
[2022-04-02] MEDS: INSULIN LISPRO 100 UNIT/ML SUB-Q SCH ×5 (05:38→23:54)
[2022-04-02] MEDS: FERROUS SULFATE 325 MG TAB PO SCH (10:18)
[2022-04-02] MEDS: hydroCHLOROthiazide 25 MG TAB PO SCH (10:18)
[2022-04-02] MEDS: NIFEdipine XL 30 MG TAB PO SCH (10:18)
[2022-04-02] MEDS: AMIODARONE 200 MG TAB PO SCH ×2 (10:18→22:05)
[2022-04-02] MEDS: METOPROLOL TARTRATE 100 MG TAB PO SCH ×2 (10:18→22:05)
[2022-04-02] MEDS: amLODIPine 10 MG TAB PO SCH (10:19)
[2022-04-02] MEDS: metFORMIN 500 MG TAB PO SCH ×2 (10:23→18:00)
--- NOTE | 2022-04-02 12:48 | Progress Note ---
Assessment and Plan Paroxysmal atrial fibrillation Current Visit: Yes Status: Acute Plan to address problem: Patient presented with paroxysmal atrial fibrillation, on amiodarone and metoprolol for atrial fibrillation suppression. Due to persistent severe anemia, hematocrit was 27, currently 23, patient is at high risk for oral anticoagulation. Continue metoprolol 100 twice daily and continue amiodarone. Subjective Principal diagnosis: Altered mental status, rapid atrial fibrillation Interval history: Patient appears comfortable not in acute distress. She does not have any cardiac complaints. Telemetry showed patient is sinus tachycardia with frequent PACs in the rates of 100s. Objective Vital Signs Temp Pulse Pulse Resp BP BP Pulse Ox 04/02/22 10:19 93 H 04/02/22 10:18 93 H 04/02/22 07:44 97.8 F 91 H 18 160/79 96 04/02/22 03:10 98.1 F 91 H 16 131/78 95 04/02/22 00:04 98.3 F 88 17 134/73 96 04/01/22 22:40 70 16 98 04/01/22 22:00 70 04/01/22 21:04 98.8 F 70 19 153/74 95 04/01/22 16:51 98.5 F 75 18 144/79 97 - Physical Examination General: No Apparent Distress, Other (Patient appears lethargic and chronically ill obese) HEENT: Positive: EOMI Neck: Positive: neck supple Cardiac: Positive: irregularly irregular, S1/S2. Negative: S3, Audible Murmur Lungs: Positive: clear to auscultation. Negative: Rales Neuro: Positive: Weakness (Generalized lethargy) Abdomen: Positive: Soft (Obese) Skin: Positive: Clear Extremities: Absent: edema
--- NOTE | 2022-04-02 13:39 | Progress Note ---
Assessment and Plan Assessment and plan: #Acute metabolic encephalopathyworsening #H/O Schizophrenia and Dementia -patient not at baseline according to family -CT head noncontrast unremarkable. Chest x-ray unremarkable for acute findings. -UA not suggestive of UTI, antibiotics discontinued. -Discontinued risperidone (per conversation with patient's family about it being [facility] at [facility]). Discontinued home Seroquel dose (100mg nightly) due to concern for continued lethargy/drowsiness. Unremarkable MRI brain with and without contrast for acute ischemic CVA. Neurology consulted; appreciate recs. Continue to monitor as sedatives are further metabolized. #Atrial fibrillation with RVRresolved -Status post Cardene drip -Amiodarone drip started by cardiology, continue metoprolol -Echocardiogram shows normal ejection fraction -Unclear if this is persistent versus paroxysmal; anticoagulation held due to high risk of bleed with patient anemia -Cardiology following, assistance appreciated. Continue metoprolol 100mg BID and amiodarone 200mg #Hypokalemiaresolved -Potassium 3.0, supplementation via Dobbhoff ordered -We will repeat level in @1600 -will continue to monitor #Poor PO intake #Volume depletion-improved #Possible dysphagia -patient refusing to eat at PR and refusing medications -Dobhoff in place with tube feeds discontinued upon discharge. Speech evaluation consulted; pured food with thin liquids. #Hypertension -Continue home metoprolol titrate 50 mg twice daily, amlodipine 5 mg, and hydrochlorothiazide 25 mg daily #Non-insulin dependent type II diabetes mellitus - hemoglobin A1c: Unknown - home regimen: Metformin 500 mg twice daily - current regimen: Metformin 500 mg twice daily + moderate SSI - blood glucose goal 140-180 while inpatient - continue to monitor #Osteoarthritis -X-ray of left knee suggestive of arthritis -Supportive care #Fever- resolved -patient without WBC, and had low grade fever 100.4 -no further fever over the last 24 hrs #UTI ruled out #Obesity #Weight loss counseling #Exercise counseling - BMI 30.7 - Counseled patient on the importance of weight loss, incorporating exercise, and dietary changes (lean meats, fresh fruits and vegetables, and water intake). Patient expresses understanding. - Time: +15 min #Advanced care planning -Disease education conducted, care plan discussed, diagnoses discussed, prognosis discussed, and patient acknowledges understanding with care plan -Time: +30 min Social: 03/30/2022. Detailed conversation with the patient's daughter (Ms. Ochoa) about the patient's baseline. Daughter describes the patient as very talkative, conversant, jovial (always singing and laughing), etc. Daughter also added additional information that the patient at her baseline and then acutely declined. MRI brain had not been performed to possibly assess for acute ischemic CVA, and this is prompting further investigation. Daughter endorses risperidone has been discontinued prior to admission. #Discharge planning - Patient is pending resolution of refractory metabolic encephalopathy - Case management has been made aware. Disposition Plan: Continue medical management Total Time Spent with Patient (Minutes): 45 minutes History Interval history: No acute events overnight. Hospitalist Physical - Constitutional Vitals: Temp Pulse Resp BP Pulse Ox 97.8 F 93 H 18 160/79 96 04/02/22 07:44 04/02/22 10:19 04/02/22 07:44 04/02/22 07:44 04/02/22 07:44 General appearance: Present: no acute distress, well-nourished, obese - EENT Eyes: Present: PERRL, EOM intact ENT: hearing intact, clear oral mucosa, dentition normal, other (NG tube in place) - Neck Neck: Present: supple, normal ROM - Respiratory Respiratory effort: normal Respiratory: bilateral: CTA - Cardiovascular Rhythm: regular Heart Sounds: Present: S1 & S2 - Extremities Extremities: no ischemia, pulses intact, pulses symmetrical, No edema, normal temperature, normal color Peripheral Pulses: within normal limits - Abdominal General gastrointestinal: soft, non-tender, non-distended, normal bowel sounds - Integumentary Integumentary: Present: clear, warm, dry - Psychiatric Psychiatric: other (Worsening encephalopathy/drowsiness) - Neurologic Neurologic: CNII-XII intact - Allied Health Allied health notes reviewed: nursing Results - Labs CBC & Chem 7: 03/26/22 04:47 03/27/22 04:38 Labs: Laboratory Last Values WBC 8.7 K/mm3 (4.5-11.0) 03/26/22 04:47 RBC 3.48 M/mm3 (3.65-5.03) L 03/26/22 04:47 Hgb 7.6 gm/dl (10.1-14.3) L 03/26/22 04:47 Hct 23.6 % (30.3-42.9) L 03/26/22 04:47 MCV 68 fl (79-97) L 03/26/22 04:47 MCH 22 pg (28-32) L 03/26/22 04:47 MCHC 32 % (30-34) 03/26/22 04:47 RDW 18.0 % (13.2-15.2) H 03/26/22 04:47 Plt Count 311 K/mm3 (140-440) 03/26/22 04:47 Lymph % (Auto) 17.1 % (13.4-35.0) 03/26/22 04:47 [place] % (Auto) 9.6 % (0.0-7.3) H 03/26/22 04:47 Eos % (Auto) 0.3 % (0.0-4.3) 03/26/22 04:47 Baso % (Auto) 0.4 % (0.0-1.8) 03/26/22 04:47 Lymph # (Auto) 1.5 K/mm3 (1.2-5.4) 03/26/22 04:47 [place] # (Auto) 0.8 K/mm3 (0.0-0.8) 03/26/22 04:47 Eos # (Auto) 0.0 K/mm3 (0.0-0.4) 03/26/22 04:47 Baso # (Auto) 0.0 K/mm3 (0.0-0.1) 03/26/22 04:47 Seg Neutrophils % 72.6 % (40.0-70.0) H 03/26/22 04:47 Seg Neutrophils # 6.3 K/mm3 (1.8-7.7) 03/26/22 04:47 Sodium 143 mmol/L (137-145) 03/27/22 04:38 Potassium 3.7 mmol/L (3.6-5.0) D 03/27/22 04:38 Chloride 109.9 mmol/L (98-107) H 03/27/22 04:38 Carbon Dioxide 25 mmol/L (22-30) 03/27/22 04:38 Anion Gap 12 mmol/L 03/27/22 04:38 BUN 35 mg/dL (7-17) H 03/27/22 04:38 Creatinine 1.0 mg/dL (0.6-1.2) 03/27/22 04:38 Estimated GFR > 60 ml/min 03/27/22 04:38 BUN/Creatinine Ratio 35 % 03/27/22 04:38 Glucose 171 mg/dL (65-100) H 03/27/22 04:38 POC Glucose 177 mg/dL (70-105) H 04/02/22 12:01 Calcium 9.2 mg/dL (8.4-10.2) 03/27/22 04:38 Total Bilirubin 0.30 mg/dL (0.1-1.2) 03/24/22 18:58 Direct Bilirubin < 0.2 mg/dL (0-0.2) 03/24/22 18:58 Indirect Bilirubin 0.1 mg/dL 03/24/22 18:58 AST 32 units/L (5-40) 03/24/22 18:58 ALT 16 units/L (7-56) 03/24/22 18:58 Alkaline Phosphatase 81 units/L (35-129) 03/24/22 18:58 Total Protein 6.8 g/dL (6.3-8.2) 03/24/22 18:58 Albumin 3.3 g/dL (3.9-5) L 03/24/22 18:58 Albumin/Globulin Ratio 0.9 % 03/24/22 18:58 Urine Color Colorless (Yellow) 03/24/22 Unknown Urine Turbidity Clear (Clear) 03/24/22 Unknown Urine pH 5.0 (5.0-7.0) 03/24/22 Unknown Ur Specific [place] 1.025 (1.003-1.030) 03/24/22 Unknown Urine Protein 30 mg/dl mg/dL (Negative) 03/24/22 Unknown Urine Glucose (UA) Negative mg/dL (Negative) 03/24/22 Unknown Urine Ketones Negative mg/dL (Negative) 03/24/22 Unknown Urine Blood Negative (Negative) 03/24/22 Unknown Urine Nitrite Negative (Negative) 03/24/22 Unknown Urine Bilirubin Negative (Negative) 03/24/22 Unknown Urine Urobilinogen 0.2 mg/dL (<2.0) 03/24/22 Unknown Ur Leukocyte Esterase 75 (Negative) 03/24/22 Unknown Urine WBC (Auto) < 1.0 /HPF (0.0-6.0) 03/24/22 Unknown Urine RBC (Auto) < 1.0 /HPF (0.0-6.0) 03/24/22 Unknown Urine Bacteria (Auto) 1+ /HPF (Negative) 03/24/22 Unknown Coronavirus (PCR) Negative (Negative) 03/29/22 11:00 Sanches/IV: Voiding Method External Female Catheter Active Medications - Current Medications Current Medications: Generic Name Dose Route Start Last Admin Trade Name Freq PRN Reason Stop Dose Admin Acetaminophen 650 mg 03/25/22 00:47 03/29/22 16:43 Acetaminophen 325 Mg Tab PO 650 mg Q4H PRN Administration Pain MILD(1-3)/Fever >100.5/VILLANUEVA Amiodarone HCl 200 mg 03/26/22 13:00 04/02/22 10:18 Amiodarone 200 Mg Tab PO 200 mg BID SINCERE Administration Amlodipine Besylate 10 mg 04/01/22 16:00 04/02/22 10:19 Amlodipine 10 Mg Tab PO 10 mg QDAY SINCERE Administration Clonidine HCl 0.1 mg 03/25/22 11:52 Clonidine 0.1 Mg Tab PO Q8H PRN Hypertension Dextrose 50 ml 03/25/22 10:26 Dextrose 50% In Water (25gm) 50 Ml Syringe IV Q30MIN PRN Hypoglycemia Protocol Ferrous Sulfate 325 mg 03/26/22 10:00 04/02/22 10:18 Ferrous Sulfate 325 Mg Tab PO 325 mg QDAY SINCERE Administration Heparin Sodium (Porcine) 5,000 unit 03/25/22 06:00 04/02/22 05:22 Heparin 5,000 Unit/1 Ml Vial SUB-Q 5,000 unit Q8HR SINCERE Administration Hydrochlorothiazide 50 mg 03/30/22 10:00 04/02/22 10:18 Hydrochlorothiazide 25 Mg Tab PO 50 mg QDAY SINCERE Administration Insulin Human Lispro 0 unit 03/26/22 17:00 04/02/22 12:02 Insulin Lispro 100 Unit/Ml SUB-Q 1 unit Q6H SINCERE Administration Protocol Ketorolac Tromethamine 15 mg 03/31/22 16:27 04/01/22 00:39 Ketorolac 30 Mg/1 Ml Inj IV 04/05/22 16:26 15 mg Q6H PRN Administration Pain, Mild (1-3) Magnesium Hydroxide 30 ml 03/25/22 00:52 Magnesium Hydroxide (Mom) Oral Liqd Udc PO Q4H PRN Constipation Metformin HCl 500 mg 04/01/22 09:00 04/02/22 10:23 Metformin 500 Mg Tab PO 500 mg BIDDIAB SINCERE Administration Metoprolol Tartrate 100 mg 03/28/22 22:00 04/02/22 10:18 Metoprolol Tartrate 100 Mg Tab PO 100 mg BID SINCERE Administration Morphine Sulfate 2 mg 03/25/22 00:47 03/28/22 10:00 Morphine 2 Mg/1 Ml Inj IV 2 mg Q4H PRN Administration Pain, Moderate (4-6) Morphine Sulfate 4 mg 03/25/22 00:47 Morphine 4 Mg/1 Ml Inj IV Q4H PRN Pain , Severe (7-10) Nifedipine 30 mg 03/30/22 10:00 04/02/22 10:18 Nifedipine Xl 30 Mg Tab PO 30 mg QDAY SINCERE Administration Ondansetron HCl 4 mg 03/25/22 00:47 Ondansetron 4 Mg/2 Ml Inj IV Q8H PRN Nausea And Vomiting Sodium Chloride 10 ml 03/25/22 10:00 04/02/22 10:20 Sodium Chloride 0.9% 10 Ml Flush Syringe IV 10 ml BID SINCERE Administration Sodium Chloride 10 ml 03/25/22 00:47 Sodium Chloride 0.9% 10 Ml Flush Syringe IV PRN PRN LINE FLUSH Nutrition/Malnutrition Assess - Dietary Evaluation Nutrition/Malnutrition Findings: Nutrition Notes Start: 03/26/22 11:41 Freq: Status: Active Protocol: Document 03/28/22 11:23 CELESTINO (Rec: 03/28/22 11:33 CELESTINO [id number]) Nutrition Notes Initial or Follow up Brief Note Other Pertinent Diagnosis AMS, Fever, Dehydration, Atrial Fibrilation/RVR, L-Knee Swelling. Current Diet TF-Jevity 1.2 Chidi @ 60 ml/hr ( from D 03/26). Height 5 ft 6 in Weight 86.2 kg [place] Body Weight (kg) 59.09 BMI 30.7 Weight change and time frame 1.4 Kg body weighty loss in 2 days reported. Weight Status Obese Subjective/Other Information RD consult for routine F/U on TF tolerance/continuation. TF continues as prescribed, no further information available at the time, will assess at F /U. [employer] note on 03/27/22 11:54: Swallowing function has been assessed. Patient is safe for a pureed diet with thins. Will continue to monitor to determine a diet upgrade. Informed her nurseCarlton. - END OF NOTE. Pt is on Room Air, O2 saturation @ 98%, according to Physical Assessment History notes. Percent of energy/protein needs met: Prescribed TF-Jevity 1.2 Chidi @ 60 ml/hr provides for energy/ protein needs (1,720 Kcal/80 g ) during LOS, 101% Kcal; 100% AA. #2 Nutrition Diagnosis Malnutrition Diagnosis Progress(for reassessment Continues documentation) #1 Nutrition Diagnosis Inadequate protein-energy intake Comments: TF continues as prescribed. [employer] note on 03/27/22 11:54: Swallowing function has been assessed. Patient is safe for a pureed diet with thins. Will continue to monitor to determine a diet upgrade. Informed her nurseCarlton. - END OF NOTE. Diagnosis Progress(for reassessment Improved documentation) Is patient on ventilator? No Is Patient Ambulatory and/or Out of Bed No REE-(Weakley-St. Jeor-confined to bed) 0020.092 Calculation Used for Recommendations Weakley-St Jeor Additional Notes Protein: 1-1.2 g/Kg AdjBW; 69- 83 g/day. Fluids: 1 ml/Kcal, or as per MD. Nutrition Intervention Nutrition Support: Start TF-Jevity 1.2 Chidi @ 60 ml/hr. Flush: 100 ml water Q 4 hr, or as per MD. Kcal 1,720 Protein (gm) 80 Carbohydrates (gm) 243 Fat (gm) 56 Fluid (mL) 1,157 Fiber (gm) 26 % RDI: 101% Kcal; 100% AA. Goal #1 Provide at least 75% of energy /protein needs through Enteral Feeding during LOS. Goal #2 Adjust the dietary intervention to better serve Pt's needs and clinical conditions during LOS. Follow-Up By: 04/04/22 Additional Comments Continue monitoring TF tolerance and BM.
[2022-04-02] MEDS ORDERED: KETOROLAC 30 MG/1 ML INJ IV ONE (16:21)
[2022-04-02] MEDS ORDERED: KETOROLAC 30 MG/1 ML INJ IV NR (16:26)
[2022-04-02 18:29] LABS: Basophils % (Auto) 0.4 % (0.0-1.8); Eosinophils # (Auto) 0.1 K/mm3 (0.0-0.4); Eosinophils % (Auto) 0.7 % (0.0-4.3); Hematocrit 24.2 % (30.3-42.9); Hemoglobin 7.6 gm/dl (10.1-14.3); Lymphocytes # (Auto) 1.6 K/mm3 (1.2-5.4); Lymphocytes % (Auto) 16.7 % (13.4-35.0); Mean Corpuscular HGB Conc 32 % (30-34); Monocytes # (Auto) 0.8 K/mm3 (0.0-0.8); Monocytes % (Auto) 7.8 % (0.0-7.3); Platelet Count 383 K/mm3 (140-440); Red Blood Count 3.57 M/mm3 (3.65-5.03); Red Cell Distribution Width 17.9 % (13.2-15.2)
[2022-04-02 18:31] LABS: Mean Corpuscular Volume 68 fl (79-97)
[2022-04-02 18:40] LABS: BUN/Creatinine Ratio 41; Blood Urea Nitrogen 41 mg/dL (7-17); Calcium 8.9 mg/dL (8.4-10.2); Hemolysis Index 0
[2022-04-03] MEDS: HEPARIN 5,000 UNIT/1 ML VIAL SUB-Q SCH ×3 (05:23→21:28)
[2022-04-03] MEDS: INSULIN LISPRO 100 UNIT/ML SUB-Q SCH ×4 (08:26→23:37)
--- NOTE | 2022-04-03 09:54 | Progress Note ---
Assessment and Plan Paroxysmal atrial fibrillation Current Visit: Yes Status: Acute Plan to address problem: Patient presented with paroxysmal atrial fibrillation, on amiodarone and metoprolol for atrial fibrillation suppression. Due to persistent severe anemia, hematocrit was 27, currently 23, patient is at high risk for oral anticoagulation. Continue metoprolol 100 twice daily and continue amiodarone. Subjective Principal diagnosis: Altered mental status, rapid atrial fibrillation Interval history: Patient appears comfortable not in acute distress. She does not have any cardiac complaints. Telemetry showed patient is sinus rhythm with frequent PACs Objective Vital Signs Temp Pulse Pulse Resp BP Pulse Ox 04/03/22 07:56 98.7 F 88 18 132/78 96 04/02/22 22:27 99 04/02/22 22:05 97 H 04/02/22 20:25 98.4 F 97 H 18 140/78 97 04/02/22 15:42 98.1 F 83 17 149/80 97 04/02/22 11:22 98.5 F 82 18 139/86 97 04/02/22 11:00 70 16 98 04/02/22 10:19 93 H 04/02/22 10:18 93 H 04/02/22 10:00 91 H - Physical Examination General: No Apparent Distress, Other (Patient appears lethargic and chronically ill obese) HEENT: Positive: EOMI Neck: Positive: neck supple Cardiac: Positive: Reg Rate and Rhythm, S1/S2. Negative: Audible Murmur Lungs: Positive: Decreased Breath Sounds, No Wheeze, Rales, Rhonchi Neuro: Positive: Weakness (Generalized lethargy) Abdomen: Positive: Soft (Obese) Skin: Positive: Clear Extremities: Absent: edema - Labs and Meds CBC 04/02/22 Range/Units 18:06 WBC 9.9 (4.5-11.0) K/mm3 RBC 3.57 L (3.65-5.03) M/mm3 Hgb 7.6 L (10.1-14.3) gm/dl Hct 24.2 L (30.3-42.9) % Plt Count 383 (140-440) K/mm3 Lymph # (Auto) 1.6 (1.2-5.4) K/mm3 [place] # (Auto) 0.8 (0.0-0.8) K/mm3 Eos # (Auto) 0.1 (0.0-0.4) K/mm3 Baso # (Auto) 0.0 (0.0-0.1) K/mm3 Comprehensive Metabolic Panel 04/02/22 Range/Units 18:06 Sodium 141 (137-145) mmol/L Potassium 4.3 (3.6-5.0) mmol/L Chloride 104.1 (98-107) mmol/L Carbon Dioxide 25 (22-30) mmol/L BUN 41 H (7-17) mg/dL Creatinine 1.0 (0.6-1.2) mg/dL Glucose 218 H (65-100) mg/dL Calcium 8.9 (8.4-10.2) mg/dL
[2022-04-03] MEDS: FERROUS SULFATE 325 MG TAB PO SCH (10:18)
[2022-04-03] MEDS: amLODIPine 10 MG TAB PO SCH (10:18)
[2022-04-03] MEDS: METOPROLOL TARTRATE 100 MG TAB PO SCH ×2 (10:18→21:29)
[2022-04-03] MEDS: NIFEdipine XL 30 MG TAB PO SCH (10:18)
[2022-04-03] MEDS: hydroCHLOROthiazide 25 MG TAB PO SCH (10:18)
[2022-04-03] MEDS: AMIODARONE 200 MG TAB PO SCH ×2 (10:22→21:29)
[2022-04-03] MEDS: metFORMIN 500 MG TAB PO SCH ×2 (10:22→15:59)
[2022-04-03] MEDS: ACETAMINOPHEN 325 MG TAB PO PRN (10:30)
--- NOTE | 2022-04-03 11:56 | Progress Note ---
Assessment and Plan Assessment and plan: #Acute metabolic encephalopathyworsening #H/O Schizophrenia and Dementia -patient not at baseline according to family -CT head noncontrast unremarkable. Chest x-ray unremarkable for acute findings. -UA not suggestive of UTI, antibiotics discontinued. -Discontinued risperidone (per conversation with patient's family about [facility] Discontinued home Seroquel dose (100mg nightly) due to concern for continued lethargy/drowsiness. Unremarkable MRI brain with and without contrast for acute ischemic CVA. Neurology consulted; appreciate recs. Continue to monitor as sedatives are further metabolized. #Atrial fibrillation with RVRresolved -Status post Cardene drip -Amiodarone drip started by cardiology, continue metoprolol -Echocardiogram shows normal ejection fraction -Unclear if this is persistent versus paroxysmal; anticoagulation held due to high risk of bleed with patient anemia -Cardiology following, assistance appreciated. Continue metoprolol 100mg BID and amiodarone 200mg #Hypokalemiaresolved -will continue to replete and monitor #Poor PO intake #Volume depletion-improved #Possible dysphagia -patient refusing to eat at [place] and refusing medications -Speech therapy recommends PEG tube placement, family notified #microcytic anemia -Hgb 7.6 -will transfuse for Hgb less than 7 #Hypertension -Continue home metoprolol titrate 50 mg twice daily, amlodipine 5 mg, and h ydrochlorothiazide 25 mg daily #Non-insulin dependent type II diabetes mellitus - hemoglobin A1c: Unknown - home regimen: Metformin 500 mg twice daily - current regimen: Metformin 500 mg twice daily + moderate SSI - blood glucose goal 140-180 while inpatient - continue to monitor #Osteoarthritis -X-ray of left knee suggestive of arthritis -CT of LLE shows moderate to large joint effusion and severe tricompartmental osteoarthritis -will order arthrocentesis with fluid studies -Supportive care #Fever- resolved #UTI ruled out #Obesity #Weight loss counseling #Exercise counseling - BMI 30.7 - Counseled patient on the importance of weight loss, incorporating exercise, and dietary changes (lean meats, fresh fruits and vegetables, and water intake). Patient expresses understanding. - Time: +15 min #Advanced care planning -Disease education conducted, care plan discussed, diagnoses discussed, prognosis discussed with NOK. NOK acknowledges understanding with care plan. -Time: +30 min Social: 04/03/2022: Patient's daughter Niurka Ochoa was contacted about ST new recommendation for PEG tube placement. Ms. Ochoa wants to talk to her other siblings prior to making a decision. Will await her final decision #Discharge planning - Patient is pending resolution of refractory metabolic encephalopathy - Case management has been made aware. History Interval history: Patient seen and examined at bedside. Patient alert to person. Patient con tinuously moans and groans and does not follow any commands. Hospitalist Physical - Physical exam Narrative exam: GENERAL: Well-developed well-nourished. In no acute distress. HEENT: NGT in place @60cc/hr. NECK: Supple. CHEST/LUNGS: CTAB on room air HEART/CARDIOVASCULAR: Irregularly irregular rhythm. No murmur, rubs or gallops a ppreciated. ABDOMEN: +BS. NT/ND. NEURO: No focal motor deficit. Follows all commands. MUSCULOSKELETAL: No joint effusion EXTREMITIES: No cyanosis, clubbing. L knee swelling. PSYCH: Confused. - Constitutional Vitals: Temp Pulse Resp BP Pulse Ox 98.7 F 79 18 132/78 96 04/03/22 07:56 04/03/22 10:00 04/03/22 07:56 04/03/22 07:56 04/03/22 07:56 General appearance: Present: no acute distress, well-nourished, obese Results - Labs CBC & Chem 7: 04/02/22 18:06 04/02/22 18:06 Labs: Laboratory Last Values WBC 9.9 K/mm3 (4.5-11.0) 04/02/22 18:06 RBC 3.57 M/mm3 (3.65-5.03) L 04/02/22 18:06 Hgb 7.6 gm/dl (10.1-14.3) L 04/02/22 18:06 Hct 24.2 % (30.3-42.9) L 04/02/22 18:06 MCV 68 fl (79-97) L 04/02/22 18:06 MCH 21 pg (28-32) L 04/02/22 18:06 MCHC 32 % (30-34) 04/02/22 18:06 RDW 17.9 % (13.2-15.2) H 04/02/22 18:06 Plt Count 383 K/mm3 (140-440) 04/02/22 18:06 Lymph % (Auto) 16.7 % (13.4-35.0) 04/02/22 18:06 Otoe % (Auto) 7.8 % (0.0-7.3) H 04/02/22 18:06 Eos % (Auto) 0.7 % (0.0-4.3) 04/02/22 18:06 Baso % (Auto) 0.4 % (0.0-1.8) 04/02/22 18:06 Lymph # (Auto) 1.6 K/mm3 (1.2-5.4) 04/02/22 18:06 Otoe # (Auto) 0.8 K/mm3 (0.0-0.8) 04/02/22 18:06 Eos # (Auto) 0.1 K/mm3 (0.0-0.4) 04/02/22 18:06 Baso # (Auto) 0.0 K/mm3 (0.0-0.1) 04/02/22 18:06 Seg Neutrophils % 74.4 % (40.0-70.0) H 04/02/22 18:06 Seg Neutrophils # 7.3 K/mm3 (1.8-7.7) 04/02/22 18:06 Sodium 141 mmol/L (137-145) 04/02/22 18:06 Potassium 4.3 mmol/L (3.6-5.0) 04/02/22 18:06 Chloride 104.1 mmol/L (98-107) 04/02/22 18:06 Carbon Dioxide 25 mmol/L (22-30) 04/02/22 18:06 Anion Gap 16 mmol/L 04/02/22 18:06 BUN 41 mg/dL (7-17) H 04/02/22 18:06 Creatinine 1.0 mg/dL (0.6-1.2) 04/02/22 18:06 Estimated GFR > 60 ml/min 04/02/22 18:06 BUN/Creatinine Ratio 41 % 04/02/22 18:06 Glucose 218 mg/dL (65-100) H 04/02/22 18:06 POC Glucose 158 mg/dL (70-105) H 04/03/22 06:41 Calcium 8.9 mg/dL (8.4-10.2) 04/02/22 18:06 Total Bilirubin 0.30 mg/dL (0.1-1.2) 03/24/22 18:58 Direct Bilirubin < 0.2 mg/dL (0-0.2) 03/24/22 18:58 Indirect Bilirubin 0.1 mg/dL 03/24/22 18:58 AST 32 units/L (5-40) 03/24/22 18:58 ALT 16 units/L (7-56) 03/24/22 18:58 Alkaline Phosphatase 81 units/L (35-129) 03/24/22 18:58 Total Protein 6.8 g/dL (6.3-8.2) 03/24/22 18:58 Albumin 3.3 g/dL (3.9-5) L 03/24/22 18:58 Albumin/Globulin Ratio 0.9 % 03/24/22 18:58 Urine Color Colorless (Yellow) 03/24/22 Unknown Urine Turbidity Clear (Clear) 03/24/22 Unknown Urine pH 5.0 (5.0-7.0) 03/24/22 Unknown Ur Specific Huger 1.025 (1.003-1.030) 03/24/22 Unknown Urine Protein 30 mg/dl mg/dL (Negative) 03/24/22 Unknown Urine Glucose (UA) Negative mg/dL (Negative) 03/24/22 Unknown Urine Ketones Negative mg/dL (Negative) 03/24/22 Unknown Urine Blood Negative (Negative) 03/24/22 Unknown Urine Nitrite Negative (Negative) 03/24/22 Unknown Urine Bilirubin Negative (Negative) 03/24/22 Unknown Urine Urobilinogen 0.2 mg/dL (<2.0) 03/24/22 Unknown Ur Leukocyte Esterase 75 (Negative) 03/24/22 Unknown Urine WBC (Auto) < 1.0 /HPF (0.0-6.0) 03/24/22 Unknown Urine RBC (Auto) < 1.0 /HPF (0.0-6.0) 03/24/22 Unknown Urine Bacteria (Auto) 1+ /HPF (Negative) 03/24/22 Unknown Coronavirus (PCR) Negative (Negative) 04/02/22 11:00 Microbiology: Microbiology 04/02/22 18:06 Peripheral/Venous Blood Culture - Preliminary Culture in Progress 04/02/22 18:06 Peripheral/Venous Blood Culture - Preliminary Culture in Progress Sanches/IV: Voiding Method External Female Catheter Active Medications - Current Medications Current Medications: Generic Name Dose Route Start Last Admin Trade Name Freq PRN Reason Stop Dose Admin Acetaminophen 650 mg 03/25/22 00:47 04/03/22 10:30 Acetaminophen 325 Mg Tab PO 650 mg Q4H PRN Administration Pain MILD(1-3)/Fever >100.5/VILLANUEVA Amiodarone HCl 200 mg 03/26/22 13:00 04/03/22 10:22 Amiodarone 200 Mg Tab PO 200 mg BID SINCERE Administration Amlodipine Besylate 10 mg 04/01/22 16:00 04/03/22 10:18 Amlodipine 10 Mg Tab PO 10 mg QDAY SINCERE Administration Clonidine HCl 0.1 mg 03/25/22 11:52 Clonidine 0.1 Mg Tab PO Q8H PRN SBP >/=170; DBP >/=110 Dextrose 50 ml 03/25/22 10:26 Dextrose 50% In Water (25gm) 50 Ml Syringe IV Q30MIN PRN Hypoglycemia Protocol Ferrous Sulfate 325 mg 03/26/22 10:00 04/03/22 10:18 Ferrous Sulfate 325 Mg Tab PO 325 mg QDAY SINCERE Administration Heparin Sodium (Porcine) 5,000 unit 03/25/22 06:00 04/03/22 05:23 Heparin 5,000 Unit/1 Ml Vial SUB-Q 5,000 unit Q8HR SINCERE Administration Hydrochlorothiazide 50 mg 03/30/22 10:00 04/03/22 10:18 Hydrochlorothiazide 25 Mg Tab PO 50 mg QDAY SINCERE Administration Insulin Human Lispro 0 unit 03/26/22 17:00 04/03/22 08:26 Insulin Lispro 100 Unit/Ml SUB-Q Not Given Q6H [facility] Protocol Ketorolac Tromethamine 15 mg 03/31/22 16:27 04/01/22 00:39 Ketorolac 30 Mg/1 Ml Inj IV 04/05/22 16:26 15 mg Q6H PRN Administration Pain, Mild (1-3) Magnesium Hydroxide 30 ml 03/25/22 00:52 Magnesium Hydroxide (Mom) Oral Liqd Udc PO Q4H PRN Constipation Metformin HCl 500 mg 04/01/22 09:00 08/16/22 10:22 Metformin 500 Mg Tab PO 500 mg BIDDIAB SINCERE Administration Metoprolol Tartrate 100 mg 03/28/22 22:00 04/03/22 10:18 Metoprolol Tartrate 100 Mg Tab PO 100 mg BID SINCERE Administration Morphine Sulfate 2 mg 03/25/22 00:47 03/28/22 10:00 Morphine 2 Mg/1 Ml Inj IV 2 mg Q4H PRN Administration Pain, Moderate (4-6) Morphine Sulfate 4 mg 03/25/22 00:47 Morphine 4 Mg/1 Ml Inj IV Q4H PRN Pain , Severe (7-10) Nifedipine 30 mg 03/30/22 10:00 04/03/22 10:18 Nifedipine Xl 30 Mg Tab PO 30 mg QDAY SINCERE Administration Ondansetron HCl 4 mg 03/25/22 00:47 Ondansetron 4 Mg/2 Ml Inj IV Q8H PRN Nausea And Vomiting Sodium Chloride 10 ml 03/25/22 10:00 04/03/22 10:19 Sodium Chloride 0.9% 10 Ml Flush Syringe IV 10 ml BID SINCERE Administration Sodium Chloride 10 ml 03/25/22 00:47 Sodium Chloride 0.9% 10 Ml Flush Syringe IV PRN PRN LINE FLUSH Nutrition/Malnutrition Assess - Dietary Evaluation Nutrition/Malnutrition Findings: Nutrition Notes Start: 03/26/22 11:41 Freq: Status: Active Protocol: Document 03/28/22 11:23 CELESTINO (Rec: 03/28/22 11:33 CELESTINO [id number]) Nutrition Notes Initial or Follow up Brief Note Other Pertinent Diagnosis AMS, Fever, Dehydration, Atrial Fibrilation/RVR, L-Knee Swelling. Current Diet TF-Jevity 1.2 Chidi @ 60 ml/hr ( from D 03/26). Height 5 ft 6 in Weight 86.2 kg Kite Body Weight (kg) 59.09 BMI 30.7 Weight change and time frame 1.4 Kg body weighty loss in 2 days reported. Weight Status Obese Subjective/Other Information RD consult for routine F/U on TF tolerance/continuation. TF continues as prescribed, no further information available at the time, will assess at F /U. TOUR BUS DRIVER note on 03/27/22 11:54: Swallowing function has been assessed. Patient is safe for a pureed diet with thins. Will continue to monitor to determine a diet upgrade. Informed her nurseCarlton. - END OF NOTE. Pt is on Room Air, O2 saturation @ 98%, according to Physical Assessment History notes. Percent of energy/protein needs met: Prescribed TF-Jevity 1.2 Chidi @ 60 ml/hr provides for energy/ protein needs (1,720 Kcal/80 g ) during LOS, 101% Kcal; 100% AA. #2 Nutrition Diagnosis Malnutrition Diagnosis Progress(for reassessment Continues documentation) #1 Nutrition Diagnosis Inadequate protein-energy intake Comments: TF continues as prescribed. TOUR BUS DRIVER note on 03/27/22 11:54: Swallowing function has been assessed. Patient is safe for a pureed diet with thins. Will continue to monitor to determine a diet upgrade. Informed her nurseCarlton. - END OF NOTE. Diagnosis Progress(for reassessment Improved documentation) Is patient on ventilator? No Is Patient Ambulatory and/or Out of Bed No REE-(Bladen-St. Jeor-confined to bed) 6940.092 Calculation Used for Recommendations Bladen-St Jeor Additional Notes Protein: 1-1.2 g/Kg AdjBW; 69- 83 g/day. Fluids: 1 ml/Kcal, or as per MD. Nutrition Intervention Nutrition Support: Start TF-Jevity 1.2 Chidi @ 60 ml/hr. Flush: 100 ml water Q 4 hr, or as per MD. Kcal 1,720 Protein (gm) 80 Carbohydrates (gm) 243 Fat (gm) 56 Fluid (mL) 1,157 Fiber (gm) 26 % RDI: 101% Kcal; 100% AA. Goal #1 Provide at least 75% of energy /protein needs through Enteral Feeding during LOS. Goal #2 Adjust the dietary intervention to better serve Pt's needs and clinical conditions during LOS. Follow-Up By: 04/04/22 Additional Comments Continue monitoring TF tolerance and BM.
--- NOTE | 2022-04-03 12:32 | Cat Scan Report ---
CT LEFT LOWER EXTREMITY WITH AND WITHOUT CONTRAST INDICATION : L knee- concerning for infection or injury. TECHNIQUE: Axial imaging performed through the left knee with and without the use of contrast. 100 c c of Omnipaque [address] scans at this location are performed using CT dose reduct ion for [facility] by means of automated exposure control. COMPARISON: Left knee films dated 03/24/2022. FINDINGS: Severe tricompartmental osteoarthritic changes are evident. There is no evidence for acute fracture, bone destruction or bone lesion. Moderate to large joint effusion extends to the suprapatel lar bursa. Small popliteal cyst is also seen. There is no evidence for internal gas or synovial enhan cement to suggest a septic joint. The periarticular musculature is atrophic but otherwise unremarkabl e. IMPRESSION: 1. Severe tricompartmental osteoarthritic changes. 2. Moderate to large joint effusion. 3. No evidence for fracture, osteomyelitis or bone lesion. Signer Name: Tal Fonseca Jr, MD Signed: 04/03/2022 12:28 PM Workstation Name: [id number]
[2022-04-04] MEDS: INSULIN LISPRO 100 UNIT/ML SUB-Q SCH ×3 (05:49→16:48)
[2022-04-04] MEDS: HEPARIN 5,000 UNIT/1 ML VIAL SUB-Q SCH ×3 (05:50→21:15)
[2022-04-04] MEDS: METOPROLOL TARTRATE 100 MG TAB PO SCH ×2 (09:13→21:14)
[2022-04-04] MEDS: metFORMIN 500 MG TAB PO SCH ×2 (09:13→17:25)
[2022-04-04] MEDS: amLODIPine 10 MG TAB PO SCH (09:13)
[2022-04-04] MEDS: hydroCHLOROthiazide 25 MG TAB PO SCH (09:14)
[2022-04-04] MEDS: FERROUS SULFATE 325 MG TAB PO SCH (09:14)
[2022-04-04] MEDS: AMIODARONE 200 MG TAB PO SCH ×2 (09:14→21:15)
[2022-04-04] MEDS: NIFEdipine XL 30 MG TAB PO SCH (09:14)
--- NOTE | 2022-04-04 09:40 | Progress Note ---
Assessment and Plan Assessment and plan: #Acute metabolic encephalopathyimproving #H/O Schizophrenia and Dementia -patient not at baseline according to family -CT head noncontrast unremarkable. Chest x-ray unremarkable for acute findings. -UA not suggestive of UTI, antibiotics discontinued. -Discontinued risperidone (per conversation with patient's family about it being discontinued at snf). Discontinued home Seroquel dose (100mg nightly) due to concern for continued lethargy/drowsiness. Unremarkable MRI brain with and without contrast for acute ischemic CVA. Neurology consulted; appreciate recs. Continue to monitor as sedatives are further metabolized. #Atrial fibrillation with RVRresolved -Status post Cardene drip -Amiodarone drip started by cardiology, continue metoprolol -Echocardiogram shows normal ejection fraction -Unclear if this is persistent versus paroxysmal; anticoagulation held due to high risk of bleed with patient anemia -Cardiology following, assistance appreciated. Continue metoprolol 100mg BID and amiodarone 200mg #Hypokalemiaresolved -will continue to replete and monitor #Poor PO intake #Volume depletion-improved #Possible dysphagia -patient refusing to eat at [place] and refusing medications -Speech therapy recommends PEG tube placement, family notified -GI consulted for possible PEG tube placement; awaiting family final decision #microcytic anemia -Hgb 7.6 -will transfuse for Hgb less than 7 #Hypertension -Continue home metoprolol titrate 50 mg twice daily, amlodipine 5 mg, and hydrochlorothiazide 25 mg daily #Non-insulin dependent type II diabetes mellitus - hemoglobin A1c: Unknown - home regimen: Metformin 500 mg twice daily - current regimen: Metformin 500 mg twice daily + moderate SSI - blood glucose goal 140-180 while inpatient - continue to monitor #Osteoarthritis -X-ray of left knee suggestive of arthritis -CT of LLE shows moderate to large joint effusion and severe tricompartmental osteoarthritis -will order arthrocentesis with fluid studies -Supportive care #Fever- resolved #UTI ruled out #Obesity #Weight loss counseling #Exercise counseling - BMI 30.7 - Counseled patient on the importance of weight loss, incorporating exercise, and dietary changes (lean meats, fresh fruits and vegetables, and water intake). Patient expresses understanding. - Time: +15 min #Advanced care planning -Disease education conducted, care plan discussed, diagnoses discussed, prognosis discussed with NOK. NOK acknowledges understanding with care plan. -Time: +30 min Social: 04/03/2022: Patient's daughter Niurka Ochoa was contacted about ST new recommendation for PEG tube placement. Ms. Ochoa wants to talk to her other siblings prior to making a decision. Will await her final decision #Discharge planning - Patient is pending improvement of metabolic encephalopathy and possible PEG tube placement - Case management has been made aware. History Interval history: Patient seen and examined at bedside. Patient alert to person and is more c onversant today. She denies pain and discomfort at this time. Hospitalist Physical - Physical exam Narrative exam: GENERAL: Well-developed well-nourished. In no acute distress. HEENT: NGT in place @60cc/hr. NECK: Supple. CHEST/LUNGS: CTAB on room air HEART/CARDIOVASCULAR: Irregularly irregular rhythm. No murmur, rubs or gallops appreciated. ABDOMEN: +BS. NT/ND. NEURO: No focal motor deficit. Follows all commands. MUSCULOSKELETAL: No joint effusion EXTREMITIES: No cyanosis, clubbing. L knee swelling. PSYCH: Confused. - Constitutional Vitals: Temp Pulse Resp BP Pulse Ox 97.8 F 92 H 19 153/82 97 04/04/22 03:35 04/04/22 07:30 04/04/22 03:35 04/04/22 03:35 04/04/22 03:35 General appearance: Present: no acute distress, well-nourished, obese Results - Labs CBC & Chem 7: 04/02/22 18:06 04/02/22 18:06 Labs: Laboratory Last Values WBC 9.9 K/mm3 (4.5-11.0) 04/02/22 18:06 RBC 3.57 M/mm3 (3.65-5.03) L 04/02/22 18:06 Hgb 7.6 gm/dl (10.1-14.3) L 04/02/22 18:06 Hct 24.2 % (30.3-42.9) L 04/02/22 18:06 MCV 68 fl (79-97) L 04/02/22 18:06 MCH 21 pg (28-32) L 04/02/22 18:06 MCHC 32 % (30-34) 04/02/22 18:06 RDW 17.9 % (13.2-15.2) H 04/02/22 18:06 Plt Count 383 K/mm3 (140-440) 04/02/22 18:06 Lymph % (Auto) 16.7 % (13.4-35.0) 04/02/22 18:06 [place] % (Auto) 7.8 % (0.0-7.3) H 04/02/22 18:06 Eos % (Auto) 0.7 % (0.0-4.3) 04/02/22 18:06 Baso % (Auto) 0.4 % (0.0-1.8) 04/02/22 18:06 Lymph # (Auto) 1.6 K/mm3 (1.2-5.4) 04/02/22 18:06 [place]mers # (Auto) 0.8 K/mm3 (0.0-0.8) 04/02/22 18:06 Eos # (Auto) 0.1 K/mm3 (0.0-0.4) 04/02/22 18:06 Baso # (Auto) 0.0 K/mm3 (0.0-0.1) 04/02/22 18:06 Seg Neutrophils % 74.4 % (40.0-70.0) H 04/02/22 18:06 Seg Neutrophils # 7.3 K/mm3 (1.8-7.7) 04/02/22 18:06 Sodium 141 mmol/L (137-145) 04/02/22 18:06 Potassium 4.3 mmol/L (3.6-5.0) 04/02/22 18:06 Chloride 104.1 mmol/L (98-107) 04/02/22 18:06 Carbon Dioxide 25 mmol/L (22-30) 04/02/22 18:06 Anion Gap 16 mmol/L 04/02/22 18:06 BUN 41 mg/dL (7-17) H 04/02/22 18:06 Creatinine 1.0 mg/dL (0.6-1.2) 04/02/22 18:06 Estimated GFR > 60 ml/min 04/02/22 18:06 BUN/Creatinine Ratio 41 % 04/02/22 18:06 Glucose 218 mg/dL (65-100) H 04/02/22 18:06 POC Glucose 147 mg/dL (70-105) H 04/04/22 04:59 Calcium 8.9 mg/dL (8.4-10.2) 04/02/22 18:06 Total Bilirubin 0.30 mg/dL (0.1-1.2) 03/24/22 18:58 Direct Bilirubin < 0.2 mg/dL (0-0.2) 03/24/22 18:58 Indirect Bilirubin 0.1 mg/dL 03/24/22 18:58 AST 32 units/L (5-40) 03/24/22 18:58 ALT 16 units/L (7-56) 03/24/22 18:58 Alkaline Phosphatase 81 units/L (35-129) 03/24/22 18:58 Total Protein 6.8 g/dL (6.3-8.2) 03/24/22 18:58 Albumin 3.3 g/dL (3.9-5) L 03/24/22 18:58 Albumin/Globulin Ratio 0.9 % 03/24/22 18:58 Urine Color Colorless (Yellow) 03/24/22 Unknown Urine Turbidity Clear (Clear) 03/24/22 Unknown Urine pH 5.0 (5.0-7.0) 03/24/22 Unknown Ur Specific [place] 1.025 (1.003-1.030) 03/24/22 Unknown Urine Protein 30 mg/dl mg/dL (Negative) 03/24/22 Unknown Urine Glucose (UA) Negative mg/dL (Negative) 03/24/22 Unknown Urine Ketones Negative mg/dL (Negative) 03/24/22 Unknown Urine Blood Negative (Negative) 03/24/22 Unknown Urine Nitrite Negative (Negative) 03/24/22 Unknown Urine Bilirubin Negative (Negative) 03/24/22 Unknown Urine Urobilinogen 0.2 mg/dL (<2.0) 03/24/22 Unknown Ur Leukocyte Esterase 75 (Negative) 03/24/22 Unknown Urine WBC (Auto) < 1.0 /HPF (0.0-6.0) 03/24/22 Unknown Urine RBC (Auto) < 1.0 /HPF (0.0-6.0) 03/24/22 Unknown Urine Bacteria (Auto) 1+ /HPF (Negative) 03/24/22 Unknown Coronavirus (PCR) Negative (Negative) 04/02/22 11:00 Microbiology: Microbiology 04/02/22 18:06 Peripheral/Venous Blood Culture - Preliminary NO GROWTH AFTER 24 HOURS 04/02/22 18:06 Peripheral/Venous Blood Culture - Preliminary NO GROWTH AFTER 24 HOURS [place]/IV: Voiding Method Incontinent Active Medications - Current Medications Current Medications: Generic Name Dose Route Start Last Admin Trade Name Freq PRN Reason Stop Dose Admin Acetaminophen 650 mg 03/25/22 00:47 04/03/22 10:30 Acetaminophen 325 Mg Tab PO 650 mg Q4H PRN Administration Pain MILD(1-3)/Fever >100.5/VILLANUEVA Amiodarone HCl 200 mg 03/26/22 13:00 04/04/22 09:14 Amiodarone 200 Mg Tab PO 200 mg BID SINCERE Administration Amlodipine Besylate 10 mg 04/01/22 16:00 04/04/22 09:13 Amlodipine 10 Mg Tab PO 10 mg QDAY SINCERE Administration Clonidine HCl 0.1 mg 03/25/22 11:52 Clonidine 0.1 Mg Tab PO Q8H PRN SBP >/=170; DBP >/=110 Dextrose 50 ml 03/25/22 10:26 Dextrose 50% In Water (25gm) 50 Ml Syringe IV Q30MIN PRN Hypoglycemia Protocol Ferrous Sulfate 325 mg 03/26/22 10:00 04/04/22 09:14 Ferrous Sulfate 325 Mg Tab PO 325 mg QDAY [facility] Administration Heparin Sodium (Porcine) 5,000 unit 03/25/22 06:00 04/04/22 05:50 Heparin 5,000 Unit/1 Ml Vial SUB-Q 5,000 unit Q8HR SINCERE Administration Hydrochlorothiazide 50 mg 03/30/22 10:00 04/04/22 09:14 Hydrochlorothiazide 25 Mg Tab PO 50 mg [facility] Administration Insulin Human Lispro 0 unit 03/26/22 17:00 04/04/22 05:49 Insulin Lispro 100 Unit/Ml SUB-Q Not Given Q6H [facility] Protocol Ketorolac Tromethamine 15 mg 03/31/22 16:27 04/01/22 00:39 Ketorolac 30 Mg/1 Ml Inj IV 04/05/22 16:26 15 mg Q6H PRN Administration Pain, Mild (1-3) Magnesium Hydroxide 30 ml 03/25/22 00:52 Magnesium Hydroxide (Mom) Oral Liqd Udc PO Q4H PRN Constipation Metformin HCl 500 mg 04/01/22 09:00 04/04/22 09:13 Metformin 500 Mg Tab PO 500 mg BIDDIAB SINCERE Administration Metoprolol Tartrate 100 mg 03/28/22 22:00 04/04/22 09:13 Metoprolol Tartrate 100 Mg Tab PO 100 mg BID SINCERE Administration Morphine Sulfate 2 mg 03/25/22 00:47 03/28/22 10:00 Morphine 2 Mg/1 Ml Inj IV 2 mg Q4H PRN Administration Pain, Moderate (4-6) Morphine Sulfate 4 mg 03/25/22 00:47 Morphine 4 Mg/1 Ml Inj IV Q4H PRN Pain , Severe (7-10) Nifedipine 30 mg 03/30/22 10:00 04/04/22 09:14 Nifedipine Xl 30 Mg Tab PO 30 mg QDAY SINCERE Administration Ondansetron HCl 4 mg 03/25/22 00:47 Ondansetron 4 Mg/2 Ml Inj IV Q8H PRN Nausea And Vomiting Sodium Chloride 10 ml 03/25/22 10:00 04/04/22 09:14 Sodium Chloride 0.9% 10 Ml Flush Syringe IV 10 ml BID SINCERE Administration Sodium Chloride 10 ml 03/25/22 00:47 Sodium Chloride 0.9% 10 Ml Flush Syringe IV PRN PRN LINE FLUSH Nutrition/Malnutrition Assess - Dietary Evaluation Nutrition/Malnutrition Findings: Nutrition Notes Start: 03/26/22 11:41 Freq: Status: Active Protocol: Document 03/28/22 11:23 CELESTINO (Rec: 03/28/22 11:33 CELESTINO [id number]) Nutrition Notes Initial or Follow up Brief Note Other Pertinent Diagnosis AMS, Fever, Dehydration, Atrial Fibrilation/RVR, L-Knee Swelling. Current Diet TF-Jevity 1.2 Chidi @ 60 ml/hr ( from D 03/26). Height 5 ft 6 in Weight 86.2 kg [place] Body Weight (kg) 59.09 BMI 30.7 Weight change and time frame 1.4 Kg body weighty loss in 2 days reported. Weight Status Obese Subjective/Other Information RD consult for routine F/U on TF tolerance/continuation. TF continues as prescribed, no further information available at the time, will assess at F /U. SQL REPORT ANALYST note on 03/27/22 11:54: Swallowing function has been assessed. Patient is safe for a pureed diet with thins. Will continue to monitor to determine a diet upgrade. Informed her nurseCarlton. - END OF NOTE. Pt is on Room Air, O2 saturation @ 98%, according to Physical Assessment History notes. Percent of energy/protein needs met: Prescribed TF-Jevity 1.2 Chidi @ 60 ml/hr provides for energy/ protein needs (1,720 Kcal/80 g ) during LOS, 101% Kcal; 100% AA. #2 Nutrition Diagnosis Malnutrition Diagnosis Progress(for reassessment Continues documentation) #1 Nutrition Diagnosis Inadequate protein-energy intake Comments: TF continues as prescribed. SQL REPORT ANALYST note on 03/27/22 11:54: Swallowing function has been assessed. Patient is safe for a pureed diet with thins. Will continue to monitor to determine a diet upgrade. Informed her nurseCarlton. - END OF NOTE. Diagnosis Progress(for reassessment Improved documentation) Is patient on ventilator? No Is Patient Ambulatory and/or Out of Bed No REE-([facility] [place]-confined to bed) 0260.092 Calculation Used for Recommendations [facility] Additional Notes Protein: 1-1.2 g/Kg AdjBW; 69- 83 g/day. Fluids: 1 ml/Kcal, or as per MD. Nutrition Intervention Nutrition Support: Start TF-Jevity 1.2 Chidi @ 60 ml/hr. Flush: 100 ml water Q 4 hr, or as per MD. Kcal 1,720 Protein (gm) 80 Carbohydrates (gm) 243 Fat (gm) 56 Fluid (mL) 1,157 Fiber (gm) 26 % RDI: 101% Kcal; 100% AA. Goal #1 Provide at least 75% of energy /protein needs through Enteral Feeding during LOS. Goal #2 Adjust the dietary intervention to better serve Pt's needs and clinical conditions during LOS. Follow-Up By: 04/04/22 Additional Comments Continue monitoring TF tolerance and BM.
--- NOTE | 2022-04-04 12:34 | Progress Note ---
Assessment and Plan Paroxysmal atrial fibrillation Current Visit: Yes Status: Acute Plan to address problem: Patient presented with paroxysmal atrial fibrillation, on amiodarone and metoprolol for atrial fibrillation suppression. Due to persistent severe anemia, hematocrit was 27, currently 23, patient is at high risk for oral anticoagulation. Continue metoprolol 100 twice daily and continue amiodarone. Subjective Principal diagnosis: Altered mental status, rapid atrial fibrillation Interval history: Patient appears comfortable not in acute distress. She does not have any cardiac complaints. Telemetry showed patient is sinus rhythm with frequent PACs Objective Vital Signs Temp Pulse Pulse Resp BP Pulse Ox 04/04/22 09:50 92 H 18 99 04/04/22 07:30 92 H 04/04/22 03:35 97.8 F 84 19 153/82 97 04/03/22 23:00 99 04/03/22 21:29 86 04/03/22 19:24 98.3 F 86 20 137/75 98 04/03/22 15:57 98.2 F 81 18 105/69 96 04/03/22 12:35 98.5 F 79 18 136/76 94 - Physical Examination General: No Apparent Distress, Other (Patient appears lethargic and chronically ill obese) HEENT: Positive: EOMI Neck: Positive: neck supple Cardiac: Positive: Irregularly Regular, S1/S2. Negative: Audible Murmur Lungs: Positive: Decreased Breath Sounds Neuro: Positive: Weakness (Generalized lethargy) Abdomen: Positive: Soft (Obese) Skin: Positive: Clear Extremities: Absent: edema
[2022-04-04] MEDS: ACETAMINOPHEN 325 MG TAB PO PRN (21:16)
[2022-04-05] MEDS: INSULIN LISPRO 100 UNIT/ML SUB-Q SCH ×4 (06:02→23:34)
[2022-04-05] MEDS: HEPARIN 5,000 UNIT/1 ML VIAL SUB-Q SCH ×3 (06:03→21:30)
[2022-04-05 06:21] LABS: BUN/Creatinine Ratio 31; Blood Urea Nitrogen 31 mg/dL (7-17); Hemolysis Index 46
--- NOTE | 2022-04-05 08:06 | Progress Note ---
Assessment and Plan Assessment and plan: #Acute metabolic encephalopathyimproving #H/O Schizophrenia and Dementia -patient not at baseline according to family -CT head noncontrast unremarkable. Chest x-ray unremarkable for acute findings. -UA not suggestive of UTI, antibiotics discontinued. -Discontinued risperidone (per conversation with patient's family about it being discontinued at halfway). Discontinued home Seroquel dose (100mg nightly) due to concern for continued lethargy/drowsiness. Unremarkable MRI brain with and without contrast for acute ischemic CVA. Neurology consulted; appreciate recs. Continue to monitor as sedatives are further metabolized. #Atrial fibrillation with RVRresolved -Status post Cardene drip -Amiodarone drip started by cardiology, continue metoprolol -Echocardiogram shows normal ejection fraction -Unclear if this is persistent versus paroxysmal; anticoagulation held due to high risk of bleed with patient anemia -Cardiology following, assistance appreciated. Continue metoprolol 100mg BID and amiodarone 200mg #Hypokalemiaresolved -will continue to replete and monitor #Poor PO intake #Volume depletion-improved #Possible dysphagia -patient refusing to eat at MA and refusing medications -Speech therapy recommends PEG tube placement, family notified -GI consulted for possible PEG tube placement; awaiting family final decision -attempted to contact the patients NOK and left a voicemail #microcytic anemia -Hgb 7.6 -will transfuse for Hgb less than 7 #Hypertension -Continue home metoprolol titrate 50 mg twice daily, amlodipine 5 mg, and hydrochlorothiazide 25 mg daily #Non-insulin dependent type II diabetes mellitus - hemoglobin A1c: Unknown - home regimen: Metformin 500 mg twice daily - current regimen: Metformin 500 mg twice daily + moderate SSI - blood glucose goal 140-180 while inpatient - continue to monitor #Osteoarthritis -X-ray of left knee suggestive of arthritis -CT of LLE shows moderate to large joint effusion and severe tricompartmental osteoarthritis -will order arthrocentesis with fluid studies -Supportive care #Fever- resolved #UTI ruled out #Obesity #Weight loss counseling #Exercise counseling - BMI 30.7 - Counseled patient on the importance of weight loss, incorporating exercise, and dietary changes (lean meats, fresh fruits and vegetables, and water intake). Patient expresses understanding. - Time: +15 min Social: 04/03/2022: Patient's daughter Niurka Ochoa was contacted about ST new recommendation for PEG tube placement. Ms. Ocoha wants to talk to her other siblings prior to making a decision. Will await her final decision #Discharge planning - Patient is pending improvement of metabolic encephalopathy and possible PEG tube placement - Case management has been made aware. History Interval history: Patient seen and examined at bedside. Patient alert and is more conversant today. She responds appropriately to questions. She denies pain and discomfort at this time. Hospitalist Physical - Physical exam Narrative exam: GENERAL: Well-developed well-nourished. In no acute distress. HEENT: NGT in place @60cc/hr. NECK: Supple. CHEST/LUNGS: CTAB on room air HEART/CARDIOVASCULAR: Irregularly irregular rhythm. No murmur, rubs or gallops appreciated. ABDOMEN: +BS. NT/ND. NEURO: No focal motor deficit. Follows all commands. MUSCULOSKELETAL: No joint effusion EXTREMITIES: No cyanosis, clubbing. L knee swelling. PSYCH: Confused. - Constitutional Vitals: Temp Pulse Resp BP Pulse Ox 98.3 F 92 H 18 118/74 99 04/05/22 04:38 04/05/22 08:00 04/05/22 08:00 04/05/22 04:38 04/05/22 08:00 General appearance: Present: no acute distress, well-nourished, obese Results - Labs CBC & Chem 7: 04/02/22 18:06 04/05/22 05:44 Labs: Laboratory Last Values WBC 9.9 K/mm3 (4.5-11.0) 04/02/22 18:06 RBC 3.57 M/mm3 (3.65-5.03) L 04/02/22 18:06 Hgb 7.6 gm/dl (10.1-14.3) L 04/02/22 18:06 Hct 24.2 % (30.3-42.9) L 04/02/22 18:06 MCV 68 fl (79-97) L 04/02/22 18:06 MCH 21 pg (28-32) L 04/02/22 18:06 MCHC 32 % (30-34) 04/02/22 18:06 RDW 17.9 % (13.2-15.2) H 04/02/22 18:06 Plt Count 383 K/mm3 (140-440) 04/02/22 18:06 Lymph % (Auto) 16.7 % (13.4-35.0) 04/02/22 18:06 [place] % (Auto) 7.8 % (0.0-7.3) H 04/02/22 18:06 Eos % (Auto) 0.7 % (0.0-4.3) 04/02/22 18:06 Baso % (Auto) 0.4 % (0.0-1.8) 04/02/22 18:06 Lymph # (Auto) 1.6 K/mm3 (1.2-5.4) 04/02/22 18:06 [place] # (Auto) 0.8 K/mm3 (0.0-0.8) 04/02/22 18:06 Eos # (Auto) 0.1 K/mm3 (0.0-0.4) 04/02/22 18:06 Baso # (Auto) 0.0 K/mm3 (0.0-0.1) 04/02/22 18:06 Seg Neutrophils % 74.4 % (40.0-70.0) H 04/02/22 18:06 Seg Neutrophils # 7.3 K/mm3 (1.8-7.7) 04/02/22 18:06 Sodium 133 mmol/L (137-145) L D 04/05/22 05:44 Potassium 4.9 mmol/L (3.6-5.0) 04/05/22 05:44 Chloride 97.3 mmol/L (98-107) L 04/05/22 05:44 Carbon Dioxide 25 mmol/L (22-30) 04/05/22 05:44 Anion Gap 16 mmol/L 04/05/22 05:44 BUN 31 mg/dL (7-17) H 04/05/22 05:44 Creatinine 1.0 mg/dL (0.6-1.2) 04/05/22 05:44 Estimated GFR > 60 ml/min 04/05/22 05:44 BUN/Creatinine Ratio 31 % 04/05/22 05:44 Glucose 177 mg/dL (65-100) H 04/05/22 05:44 POC Glucose 172 mg/dL (70-105) H 04/05/22 06:48 Calcium 9.0 mg/dL (8.4-10.2) 04/05/22 05:44 Total Bilirubin 0.30 mg/dL (0.1-1.2) 03/24/22 18:58 Direct Bilirubin < 0.2 mg/dL (0-0.2) 03/24/22 18:58 Indirect Bilirubin 0.1 mg/dL 03/24/22 18:58 AST 32 units/L (5-40) 03/24/22 18:58 ALT 16 units/L (7-56) 03/24/22 18:58 Alkaline Phosphatase 81 units/L (35-129) 03/24/22 18:58 Total Protein 6.8 g/dL (6.3-8.2) 03/24/22 18:58 Albumin 3.3 g/dL (3.9-5) L 03/24/22 18:58 Albumin/Globulin Ratio 0.9 % 03/24/22 18:58 Urine Color Colorless (Yellow) 03/24/22 Unknown Urine Turbidity Clear (Clear) 03/24/22 Unknown Urine pH 5.0 (5.0-7.0) 03/24/22 Unknown Ur Specific [place] 1.025 (1.003-1.030) 03/24/22 Unknown Urine Protein 30 mg/dl mg/dL (Negative) 03/24/22 Unknown Urine Glucose (UA) Negative mg/dL (Negative) 03/24/22 Unknown Urine Ketones Negative mg/dL (Negative) 03/24/22 Unknown Urine Blood Negative (Negative) 03/24/22 Unknown Urine Nitrite Negative (Negative) 03/24/22 Unknown Urine Bilirubin Negative (Negative) 03/24/22 Unknown Urine Urobilinogen 0.2 mg/dL (<2.0) 03/24/22 Unknown Ur Leukocyte Esterase 75 (Negative) 03/24/22 Unknown Urine WBC (Auto) < 1.0 /HPF (0.0-6.0) 03/24/22 Unknown Urine RBC (Auto) < 1.0 /HPF (0.0-6.0) 03/24/22 Unknown Urine Bacteria (Auto) 1+ /HPF (Negative) 03/24/22 Unknown Coronavirus (PCR) Negative (Negative) 04/02/22 11:00 Microbiology: Microbiology 04/02/22 18:06 Peripheral/Venous Blood Culture - Preliminary NO GROWTH AFTER 48 HOURS 04/02/22 18:06 Peripheral/Venous Blood Culture - Preliminary NO GROWTH AFTER 48 HOURS [place]/IV: Voiding Method External Female Catheter Active Medications - Current Medications Current Medications: Generic Name Dose Route Start Last Admin Trade Name Freq PRN Reason Stop Dose Admin Acetaminophen 650 mg 03/25/22 00:47 04/04/22 21:16 Acetaminophen 325 Mg Tab PO 650 mg Q4H PRN Administration Pain MILD(1-3)/Fever >100.5/VILLANUEVA Amiodarone HCl 200 mg 03/26/22 13:00 04/04/22 21:15 Amiodarone 200 Mg Tab PO 200 mg BID SINCERE Administration Amlodipine Besylate 10 mg 04/01/22 16:00 04/04/22 09:13 Amlodipine 10 Mg Tab PO 10 mg QDAY SINCERE Administration Clonidine HCl 0.1 mg 03/25/22 11:52 Clonidine 0.1 Mg Tab PO Q8H PRN SBP >/=170; DBP >/=110 Dextrose 50 ml 03/25/22 10:26 Dextrose 50% In Water (25gm) 50 Ml Syringe IV Q30MIN PRN Hypoglycemia Protocol Ferrous Sulfate 325 mg 03/26/22 10:00 04/04/22 09:14 Ferrous Sulfate 325 Mg Tab PO 325 mg QDAY SINCERE Administration Heparin Sodium (Porcine) 5,000 unit 03/25/22 06:00 04/05/22 06:03 Heparin 5,000 Unit/1 Ml Vial SUB-Q 5,000 unit Q8HR SINCERE Administration Hydrochlorothiazide 50 mg 03/30/22 10:00 04/04/22 09:14 Hydrochlorothiazide 25 Mg Tab PO 50 mg QDAY SINCERE Administration Insulin Human Lispro 0 unit 03/26/22 17:00 04/05/22 06:02 Insulin Lispro 100 Unit/Ml SUB-Q Not Given Q6H [facility] Protocol Ketorolac Tromethamine 15 mg 03/31/22 16:27 04/01/22 00:39 Ketorolac 30 Mg/1 Ml Inj IV 04/05/22 16:26 15 mg Q6H PRN Administration Pain, Mild (1-3) Magnesium Hydroxide 30 ml 03/25/22 00:52 Magnesium Hydroxide (Mom) Oral Liqd Udc PO Q4H PRN Constipation Metformin HCl 500 mg 04/01/22 09:00 04/04/22 17:25 Metformin 500 Mg Tab PO 500 mg BIDDIAB SINCERE Administration Metoprolol Tartrate 100 mg 03/28/22 22:00 04/04/22 21:14 Metoprolol Tartrate 100 Mg Tab PO 100 mg BID SINCERE Administration Morphine Sulfate 2 mg 03/25/22 00:47 03/28/22 10:00 Morphine 2 Mg/1 Ml Inj IV 2 mg Q4H PRN Administration Pain, Moderate (4-6) Morphine Sulfate 4 mg 03/25/22 00:47 Morphine 4 Mg/1 Ml Inj IV Q4H PRN Pain , Severe (7-10) Nifedipine 30 mg 03/30/22 10:00 04/04/22 09:14 Nifedipine Xl 30 Mg Tab PO 30 mg QDAY SINCERE Administration Ondansetron HCl 4 mg 03/25/22 00:47 Ondansetron 4 Mg/2 Ml Inj IV Q8H PRN Nausea And Vomiting Sodium Chloride 10 ml 03/25/22 10:00 04/04/22 21:15 Sodium Chloride 0.9% 10 Ml Flush Syringe IV 10 ml BID SINCERE Administration Sodium Chloride 10 ml 03/25/22 00:47 Sodium Chloride 0.9% 10 Ml Flush Syringe IV PRN PRN LINE FLUSH Nutrition/Malnutrition Assess - Dietary Evaluation Nutrition/Malnutrition Findings: Nutrition Notes Start: 03/26/22 11:41 Freq: Status: Active Protocol: Document 04/04/22 12:08 CELESTINO (Rec: 04/04/22 12:32 CELESTINO [id number]) Nutrition Notes Initial or Follow up Reassessment Current Diagnosis Diabetes,Hypertension Other Pertinent Diagnosis Metabolic Encephalopathy, Dysphagia, Atrial Fibrilation/ RVR, L-Knee Swell.. Current Diet Pureed Diet (since L 03/29), TF-Jevity 1.2 Chidi @ 60 ml/hr ( from D 03/26). Labs/Tests 04/04: BUN 41, Glu 218. Pertinent Medications 04/04: FeSO4, others nutritionally unremarkable. Height 5 ft 6 in Weight 83.6 kg [place] Body Weight (kg) 59.09 BMI 29.7 Weight change and time frame 2.6 Kg body weight loss reported in 1 week. Weight Status Overweight Subjective/Other Information RD consult for routine F/U on TF tolerance/continuation assessment. TF continues as prescribed, Pureed Diet was ordered since 03/29, but apparently Pt's PO intake continues to be Negligible; thus TF continues. PEG-tube placement has been recommended and family is considering it, but have not made a decision at the time, according to Progress notes. Pt is on Room Air, O2 saturation @ 99%, according to Physical Assessment History notes. Pt presents an unspecified area of concern for skin risk at the time, according to Physical Assessment History notes. Percent of energy/protein needs met: Prescribed Pureed Diet provides for energy/protein needs (1,804 Kcal/77 g) during LOS. Prescribed TF-Jevity 1.2 Chidi @ 60 ml/hr provides for energy/ protein needs (1,720 Kcal/80 g ) during LOS, 101% Kcal; 100% AA. Burn Absent Trauma Absent GI Symptoms None Food Allergy No Skin Integrity/Comment Unspecified area of concern. Current % PO Negligible Minimum of two criteria Yes Energy Intake (non-severe) <75% Estimated Energy Requirement >7 days Interpretation of Weight Loss (non- 1-2% in 1 week severe) Fluid Accumulation Mild (non-severe) Reduced Mental Health Worker Strength N/A (non-severe) Protein-Calorie Malnutrition Non-Severe #2 Nutrition Diagnosis Malnutrition Diagnosis Progress(for reassessment Continues documentation) #1 Nutrition Diagnosis Inadequate protein-energy intake Comments: TF continues as prescribed. Diagnosis Progress(for reassessment Continues documentation) Is patient on ventilator? No Is Patient Ambulatory and/or Out of Bed No REE-([facility]-confined to bed) [phone] Calculation Used for Recommendations [facility] Additional Notes Protein: 1-1.2 g/Kg AdjBW; 69- 83 g/day. Fluids: 1 ml/Kcal, or as per MD. Nutrition Intervention Change Diet Order: Continue Pureed Diet as tolerated. Nutrition Support: Continue TF-Jevity 1.2 Chidi @ 60 ml/hr. Flush: 100 ml water Q 4 hr, or as per MD. Kcal 1,720 Protein (gm) 80 Carbohydrates (gm) 243 Fat (gm) 56 Fluid (mL) 1,157 Fiber (gm) 26 % RDI: 101% Kcal; 100% AA. Goal #1 Provide at least 75% of energy /protein needs through Enteral Feeding during LOS. Goal #2 Adjust the dietary intervention to better serve Pt's needs and clinical conditions during LOS. Follow-Up By: 04/11/22 Additional Comments Continue monitoring food tolerance, %PO intake of meals , TF tolerance, and BM.
[2022-04-05] MEDS: metFORMIN 500 MG TAB PO SCH ×2 (08:43→18:29)
--- NOTE | 2022-04-05 10:20 | Gastroenterology Consultation ---
History of Present Illness - Reason for Consult Consult date: 04/05/22 Neurogenic Dysphagia Requesting physician: LYSSA LEW - History of Present Illness The patient is a 67 yo female admitted from a NH due to inability to take PO. This appears volitional (no CVA or obstruction; long hx of psychiatric disease/dementia). She has been receiving tube feeds and meds without event here. She has no N/V/blood in stools. There is no hx of major abdominal s urgery or prior PEG tube (by chart/report). The patient will respond to a few questions, but makes no volitional movement. Past History Past Medical History: other (H/O Schizophrenia,H/O Dementia) Past Surgical History: No surgical history Social history: no significant social history, other (Intermediate Resident) Family history: no significant family history Medications and Allergies Allergies Allergy/AdvReac Type Severity Reaction Status Date / Time No Known Allergies Allergy Unverified 03/24/22 17:59 Home Medications Medication Instructions Recorded Confirmed Last Taken Type Acetaminophen [Mapap] 650 mg PO Q12H 03/25/22 03/25/22 Unknown History Ferrous Sulfate [Iron 325 MG] 325 mg PO DAILY 03/25/22 03/25/22 Unknown History Ibuprofen [Motrin] 800 mg PO Q4HR PRN 03/25/22 03/25/22 Unknown History Lispro Insulin [HumaLOG] See Protocol SUB-Q ACHS 03/25/22 03/25/22 Unknown History Metoprolol [Lopressor TAB] 50 mg PO BID 03/25/22 03/25/22 Unknown History QUEtiapine [SEROquel] 100 mg PO QHS 03/25/22 03/25/22 Unknown History amLODIPine [Norvasc] 5 mg PO DAILY 03/25/22 03/25/22 Unknown History cloNIDine [Catapres] 0.1 mg PO Q8H PRN 03/25/22 03/25/22 Unknown History diphenhydrAMINE [Benadryl CAP] 50 mg PO Q4H PRN 03/25/22 03/25/22 Unknown History haloperidoL [Haloperidol] 5 mg PO Q4H PRN 03/25/22 03/25/22 Unknown History hydroCHLOROthiazide [HCTZ] 25 mg PO QDAY 03/25/22 03/25/22 Unknown History metFORMIN [Glucophage] 500 mg PO BID 03/25/22 03/25/22 Unknown History risperiDONE [RisperDAL] 1 mg PO BID 03/25/22 03/25/22 Unknown History Active Meds: Active Medications Acetaminophen (Acetaminophen 325 Mg Tab) 650 mg PO Q4H PRN PRN Reason: Pain MILD(1-3)/Fever >100.5/VILLANUEVA Last Admin: 04/04/22 21:16 Dose: 650 mg Amiodarone HCl (Amiodarone 200 Mg Tab) 200 mg PO BID [facility] Last Admin: 04/04/22 21:15 Dose: 200 mg Amlodipine Besylate (Amlodipine 10 Mg Tab) 10 mg PO QDAY [facility] Last Admin: 04/04/22 09:13 Dose: 10 mg Clonidine HCl (Clonidine 0.1 Mg Tab) 0.1 mg PO Q8H PRN PRN Reason: SBP >/=170; DBP >/=110 Dextrose (Dextrose 50% In Water (25gm) 50 Ml Syringe) 50 ml IV Q30MIN PRN; Protocol PRN Reason: Hypoglycemia Ferrous Sulfate (Ferrous Sulfate 325 Mg Tab) 325 mg PO QDAY [facility] Last Admin: 04/04/22 09:14 Dose: 325 mg Heparin Sodium (Porcine) (Heparin 5,000 Unit/1 Ml Vial) 5,000 unit SUB-Q Q8HR [facility] Last Admin: 04/05/22 06:03 Dose: 5,000 unit Hydrochlorothiazide (Hydrochlorothiazide 25 Mg Tab) 50 mg PO QDAY [facility] Last Admin: 04/04/22 09:14 Dose: 50 mg Insulin Human Lispro (Insulin Lispro 100 Unit/Ml) 0 unit SUB-Q Q6H [facility]; Protocol Last Admin: 04/05/22 06:02 Dose: Not Given Ketorolac Tromethamine (Ketorolac 30 Mg/1 Ml Inj) 15 mg IV Q6H PRN PRN Reason: Pain, Mild (1-3) Stop: 04/05/22 16:26 Last Admin: 04/01/22 00:39 Dose: 15 mg Magnesium Hydroxide (Magnesium Hydroxide (Mom) Oral Liqd Udc) 30 ml PO Q4H PRN PRN Reason: Constipation Metformin HCl (Metformin 500 Mg Tab) 500 mg PO BIDDIAB [facility] Last Admin: 04/05/22 08:43 Dose: 500 mg Metoprolol Tartrate (Metoprolol Tartrate 100 Mg Tab) 100 mg PO BID [facility] Last Admin: 04/04/22 21:14 Dose: 100 mg Morphine Sulfate (Morphine 2 Mg/1 Ml Inj) 2 mg IV Q4H PRN PRN Reason: Pain, Moderate (4-6) Last Admin: 03/28/22 10:00 Dose: 2 mg Morphine Sulfate (Morphine 4 Mg/1 Ml Inj) 4 mg IV Q4H PRN PRN Reason: Pain , Severe (7-10) Nifedipine (Nifedipine Xl 30 Mg Tab) 30 mg PO QDAY [facility] Last Admin: 04/04/22 09:14 Dose: 30 mg Ondansetron HCl (Ondansetron 4 Mg/2 Ml Inj) 4 mg IV Q8H PRN PRN Reason: Nausea And Vomiting Sodium Chloride (Sodium Chloride 0.9% 10 Ml Flush Syringe) 10 ml IV BID [facility] Last Admin: 04/04/22 21:15 Dose: 10 ml Sodium Chloride (Sodium Chloride 0.9% 10 Ml Flush Syringe) 10 ml IV PRN PRN PRN Reason: LINE FLUSH I HAVE REVIEWED/RECONCILED MEDICATIONS Review of Systems - Review of Systems ROS unobtainable: due to mental status Exam - Constitutional Vital Signs: Temp Pulse Resp BP Pulse Ox 98.2 F 94 H 17 161/83 99 04/05/22 08:34 04/05/22 08:34 04/05/22 08:34 04/05/22 08:34 04/05/22 08:34 General appearance: no acute distress - EENT Eyes: PERRL, EOM intact ENT: hearing intact, clear oral mucosa, other (NG tube present) - Neck Neck: supple, normal ROM - Respiratory Respiratory effort: normal Respiratory: bilateral: CTA - Cardiovascular Rhythm: regular Heart Sounds: Present: S1 & S2 Extremities: no ischemia, No edema - Gastrointestinal General gastrointestinal: Present: soft, non-tender, non-distended, other (No major abdominal scars) - Integumentary Integumentary: Present: clear, warm, dry - Neurologic Neurological: oriented to person, other (able to respond to some questions (name) and squeeze hand; can give no history) - Psychiatric Psychiatric: other (Flat affect) - Labs CBC & Chem 7: 04/02/22 18:06 04/05/22 05:44 Lab Results: Laboratory Results - last 24 hr 04/04/22 04/04/22 04/05/22 11:42 16:36 00:42 Sodium Potassium Chloride Carbon Dioxide Anion Gap BUN Creatinine Estimated GFR BUN/Creatinine Ratio Glucose POC Glucose 186 H 146 H 158 H Calcium 04/05/22 04/05/22 05:44 06:48 Sodium 133 L D Potassium 4.9 Chloride 97.3 L Carbon Dioxide 25 Anion Gap 16 BUN 31 H Creatinine 1.0 Estimated GFR > 60 BUN/Creatinine Ratio 31 Glucose 177 H POC Glucose 172 H Calcium 9.0 Assessment and Plan - Patient Problems (1) Neurogenic dysphagia Current Visit: Yes Status: Acute Plan to address problem: - The patient meets criteria for a PEG tube if family desires (per IMS, had not decided yet). - I left a VM with patient's daughter Ms Ochoa to go over the risks and benefits of the procedure. - We will proceed if the family desires.
[2022-04-05] MEDS: hydroCHLOROthiazide 25 MG TAB PO SCH (10:26)
[2022-04-05] MEDS: METOPROLOL TARTRATE 100 MG TAB PO SCH ×2 (10:27→21:30)
[2022-04-05] MEDS: AMIODARONE 200 MG TAB PO SCH ×2 (10:27→21:30)
[2022-04-05] MEDS: NIFEdipine XL 30 MG TAB PO SCH (10:27)
[2022-04-05] MEDS: FERROUS SULFATE 325 MG TAB PO SCH (10:27)
[2022-04-05] MEDS: amLODIPine 10 MG TAB PO SCH (10:27)
[2022-04-06] MEDS: INSULIN LISPRO 100 UNIT/ML SUB-Q SCH ×4 (05:34→23:40)
[2022-04-06] MEDS: HEPARIN 5,000 UNIT/1 ML VIAL SUB-Q SCH ×3 (05:35→22:38)
[2022-04-06] MEDS: metFORMIN 500 MG TAB PO SCH ×2 (07:16→17:09)
[2022-04-06] MEDS: hydroCHLOROthiazide 25 MG TAB PO SCH (09:00)
[2022-04-06] MEDS: FERROUS SULFATE 325 MG TAB PO SCH (09:00)
[2022-04-06] MEDS: AMIODARONE 200 MG TAB PO SCH ×2 (09:00→22:35)
[2022-04-06] MEDS: amLODIPine 10 MG TAB PO SCH (09:00)
[2022-04-06] MEDS: NIFEdipine XL 30 MG TAB PO SCH (09:01)
[2022-04-06] MEDS: METOPROLOL TARTRATE 100 MG TAB PO SCH ×2 (09:01→22:35)
--- NOTE | 2022-04-06 11:53 | Progress Note ---
Assessment and Plan Assessment and plan: #Acute metabolic encephalopathyimproving #H/O Schizophrenia and Dementia -patient not at baseline according to family -CT head noncontrast unremarkable. Chest x-ray unremarkable for acute findings. -UA not suggestive of UTI, antibiotics discontinued. -Discontinued risperidone (per conversation with patient's family about it being discontinued at snf). Discontinued home Seroquel dose (100mg nightly) due to concern for continued lethargy/drowsiness. Unremarkable MRI brain with and without contrast for acute ischemic CVA. Neurology consulted; appreciate recs. Continue to monitor as sedatives are further metabolized. #Atrial fibrillation with RVRresolved -Status post Cardene drip -Amiodarone drip started by cardiology, continue metoprolol -Echocardiogram shows normal ejection fraction -Unclear if this is persistent versus paroxysmal; anticoagulation held due to high risk of bleed with patient anemia -Cardiology following, assistance appreciated. Continue metoprolol 100mg BID and amiodarone 200mg #Hypokalemiaresolved -will continue to replete and monitor #Poor PO intake #Volume depletion-improved #Possible dysphagia -patient refusing to eat at [place] and refusing medications -Speech therapy recommends PEG tube placement, family notified -GI consulted for possible PEG tube placement; awaiting family final decision -attempted to contact the patients NOK and left a voicemail #microcytic anemia -will transfuse for Hgb less than 7 #Hypertension -Continue home metoprolol titrate 50 mg twice daily, amlodipine 5 mg, and hydrochlorothiazide 25 mg daily #Non-insulin dependent type II diabetes mellitus - hemoglobin A1c: Unknown - home regimen: Metformin 500 mg twice daily - current regimen: Metformin 500 mg twice daily + moderate SSI - blood glucose goal 140-180 while inpatient - continue to monitor #Osteoarthritis -X-ray of left knee suggestive of arthritis -CT of LLE shows moderate to large joint effusion and severe tricompartmental osteoarthritis -arthrocentesis not performed due to low utility and increased risk of infection, discussed with Radiologist -Supportive care #Fever- resolved #UTI ruled out #Obesity #Weight loss counseling #Exercise counseling - BMI 30.7 - Counseled patient on the importance of weight loss, incorporating exercise, and dietary changes (lean meats, fresh fruits and vegetables, and water intake). Patient expresses understanding. - Time: +15 min #Advanced care planning -Disease education conducted, care plan discussed, diagnoses discussed, prognosis discussed, and Ms. Niurka Ochoa (NOK) acknowledges understanding with care plan. -Time: +30 min Social: 04/03/2022: Patient's daughter Niurka Ochoa was contacted about ST new recommendation for PEG tube placement. Ms. Ochoa wants to talk to her other siblings prior to making a decision. - 04/06/2022: Discussed current care plan with patient's daughter Ms. Ochoa at the bedside. The family has decided that they would agree to PEG tube placement. #Discharge planning - Patient is pending improvement of metabolic encephalopathy and possible PEG tube placement - Case management has been made aware. History Interval history: Patient seen and examined at bedside. Patient alert and conversant when stimulated. She responds appropriately to questions. She denies pain and discomfort at this time. Hospitalist Physical - Physical exam Narrative exam: GENERAL: Well-developed well-nourished. In no acute distress. HEENT: NGT in place @60cc/hr. NECK: Supple. CHEST/LUNGS: CTAB on room air HEART/CARDIOVASCULAR: Irregularly irregular rhythm. No murmur, rubs or gallops appreciated. ABDOMEN: +BS. NT/ND. NEURO: No focal motor deficit. Follows all commands. MUSCULOSKELETAL: No joint effusion EXTREMITIES: No cyanosis, clubbing. L knee swelling. PSYCH: Alert to person and place. - Constitutional Vitals: Temp Pulse Resp BP Pulse Ox 97.9 F 86 18 150/83 99 04/06/22 08:01 04/06/22 08:01 04/06/22 08:01 04/06/22 08:01 04/06/22 08:01 General appearance: Present: no acute distress, well-nourished, obese Results - Labs CBC & Chem 7: 04/02/22 18:06 04/05/22 05:44 Labs: Laboratory Last Values WBC 9.9 K/mm3 (4.5-11.0) 04/02/22 18:06 RBC 3.57 M/mm3 (3.65-5.03) L 04/02/22 18:06 Hgb 7.6 gm/dl (10.1-14.3) L 04/02/22 18:06 Hct 24.2 % (30.3-42.9) L 04/02/22 18:06 MCV 68 fl (79-97) L 04/02/22 18:06 MCH 21 pg (28-32) L 04/02/22 18:06 MCHC 32 % (30-34) 04/02/22 18:06 RDW 17.9 % (13.2-15.2) H 04/02/22 18:06 Plt Count 383 K/mm3 (140-440) 04/02/22 18:06 Lymph % (Auto) 16.7 % (13.4-35.0) 04/02/22 18:06 [place] % (Auto) 7.8 % (0.0-7.3) H 04/02/22 18:06 Eos % (Auto) 0.7 % (0.0-4.3) 04/02/22 18:06 Baso % (Auto) 0.4 % (0.0-1.8) 04/02/22 18:06 Lymph # (Auto) 1.6 K/mm3 (1.2-5.4) 04/02/22 18:06 [place] # (Auto) 0.8 K/mm3 (0.0-0.8) 04/02/22 18:06 Eos # (Auto) 0.1 K/mm3 (0.0-0.4) 04/02/22 18:06 Baso # (Auto) 0.0 K/mm3 (0.0-0.1) 04/02/22 18:06 Seg Neutrophils % 74.4 % (40.0-70.0) H 04/02/22 18:06 Seg Neutrophils # 7.3 K/mm3 (1.8-7.7) 04/02/22 18:06 Sodium 133 mmol/L (137-145) L D 04/05/22 05:44 Potassium 4.9 mmol/L (3.6-5.0) 04/05/22 05:44 Chloride 97.3 mmol/L (98-107) L 04/05/22 05:44 Carbon Dioxide 25 mmol/L (22-30) 04/05/22 05:44 Anion Gap 16 mmol/L 04/05/22 05:44 BUN 31 mg/dL (7-17) H 04/05/22 05:44 Creatinine 1.0 mg/dL (0.6-1.2) 04/05/22 05:44 Estimated GFR > 60 ml/min 04/05/22 05:44 BUN/Creatinine Ratio 31 % 04/05/22 05:44 Glucose 177 mg/dL (65-100) H 04/05/22 05:44 POC Glucose 159 mg/dL (70-105) H 04/06/22 00:02 Calcium 9.0 mg/dL (8.4-10.2) 04/05/22 05:44 Total Bilirubin 0.30 mg/dL (0.1-1.2) 03/24/22 18:58 Direct Bilirubin < 0.2 mg/dL (0-0.2) 03/24/22 18:58 Indirect Bilirubin 0.1 mg/dL 03/24/22 18:58 AST 32 units/L (5-40) 03/24/22 18:58 ALT 16 units/L (7-56) 03/24/22 18:58 Alkaline Phosphatase 81 units/L (35-129) 03/24/22 18:58 Total Protein 6.8 g/dL (6.3-8.2) 03/24/22 18:58 Albumin 3.3 g/dL (3.9-5) L 03/24/22 18:58 Albumin/Globulin Ratio 0.9 % 03/24/22 18:58 Urine Color Colorless (Yellow) 03/24/22 Unknown Urine Turbidity Clear (Clear) 03/24/22 Unknown Urine pH 5.0 (5.0-7.0) 03/24/22 Unknown Ur Specific [place] 1.025 (1.003-1.030) 03/24/22 Unknown Urine Protein 30 mg/dl mg/dL (Negative) 03/24/22 Unknown Urine Glucose (UA) Negative mg/dL (Negative) 03/24/22 Unknown Urine Ketones Negative mg/dL (Negative) 03/24/22 Unknown Urine Blood Negative (Negative) 03/24/22 Unknown Urine Nitrite Negative (Negative) 03/24/22 Unknown Urine Bilirubin Negative (Negative) 03/24/22 Unknown Urine Urobilinogen 0.2 mg/dL (<2.0) 03/24/22 Unknown Ur Leukocyte Esterase 75 (Negative) 03/24/22 Unknown Urine WBC (Auto) < 1.0 /HPF (0.0-6.0) 03/24/22 Unknown Urine RBC (Auto) < 1.0 /HPF (0.0-6.0) 03/24/22 Unknown Urine Bacteria (Auto) 1+ /HPF (Negative) 03/24/22 Unknown Coronavirus (PCR) Negative (Negative) 04/02/22 11:00 Microbiology: Microbiology 04/02/22 18:06 Peripheral/Venous Blood Culture - Preliminary NO GROWTH AFTER 72 HOURS 04/02/22 18:06 Peripheral/Venous Blood Culture - Preliminary NO GROWTH AFTER 72 HOURS [place]/IV: Voiding Method External Female Catheter Active Medications - Current Medications Current Medications: Generic Name Dose Route Start Last Admin Trade Name Freq PRN Reason Stop Dose Admin Acetaminophen 650 mg 03/25/22 00:47 04/04/22 21:16 Acetaminophen 325 Mg Tab PO 650 mg Q4H PRN Administration Pain MILD(1-3)/Fever >100.5/VILLANUEVA Amiodarone HCl 200 mg 03/26/22 13:00 04/06/22 09:00 Amiodarone 200 Mg Tab PO 200 mg BID SINCERE Administration Amlodipine Besylate 10 mg 04/01/22 16:00 04/06/22 09:00 Amlodipine 10 Mg Tab PO 10 mg QDAY SINCERE Administration Clonidine HCl 0.1 mg 03/25/22 11:52 Clonidine 0.1 Mg Tab PO Q8H PRN SBP >/=170; DBP >/=110 Dextrose 50 ml 03/25/22 10:26 Dextrose 50% In Water (25gm) 50 Ml Syringe IV Q30MIN PRN Hypoglycemia Protocol Ferrous Sulfate 325 mg 03/26/22 10:00 04/06/22 09:00 Ferrous Sulfate 325 Mg Tab PO 325 mg QDAY SINCERE Administration Heparin Sodium (Porcine) 5,000 unit 03/25/22 06:00 04/06/22 05:35 Heparin 5,000 Unit/1 Ml Vial SUB-Q 5,000 unit Q8HR SINCERE Administration Hydrochlorothiazide 50 mg 03/30/22 10:00 04/06/22 09:00 Hydrochlorothiazide 25 Mg Tab PO 50 mg QDAY SINCERE Administration Insulin Human Lispro 0 unit 03/26/22 17:00 04/06/22 05:34 Insulin Lispro 100 Unit/Ml SUB-Q Not Given Q6H [facility] Protocol Magnesium Hydroxide 30 ml 03/25/22 00:52 Magnesium Hydroxide (Mom) Oral Liqd Udc PO Q4H PRN Constipation Metformin HCl 500 mg 04/01/22 09:00 04/06/22 07:16 Metformin 500 Mg Tab PO Not Given BIDDIAB SINCERE Metoprolol Tartrate 100 mg 03/28/22 22:00 04/06/22 09:01 Metoprolol Tartrate 100 Mg Tab PO 100 mg BID SINCERE Administration Morphine Sulfate 2 mg 03/25/22 00:47 03/28/22 10:00 Morphine 2 Mg/1 Ml Inj IV 2 mg Q4H PRN Administration Pain, Moderate (4-6) Morphine Sulfate 4 mg 03/25/22 00:47 Morphine 4 Mg/1 Ml Inj IV Q4H PRN Pain , Severe (7-10) Nifedipine 30 mg 03/30/22 10:00 04/06/22 09:01 Nifedipine Xl 30 Mg Tab PO 30 mg QDAY SINCERE Administration Ondansetron HCl 4 mg 03/25/22 00:47 Ondansetron 4 Mg/2 Ml Inj IV Q8H PRN Nausea And Vomiting Sodium Chloride 10 ml 03/25/22 10:00 04/06/22 09:01 Sodium Chloride 0.9% 10 Ml Flush Syringe IV 10 ml BID SINCERE Administration Sodium Chloride 10 ml 03/25/22 00:47 Sodium Chloride 0.9% 10 Ml Flush Syringe IV PRN PRN LINE FLUSH Nutrition/Malnutrition Assess - Dietary Evaluation Nutrition/Malnutrition Findings: Nutrition Notes Start: 03/26/22 11:41 Freq: Status: Active Protocol: Document 04/04/22 12:08 CELESTINO (Rec: 04/04/22 12:32 CELESTINO [email or web address]) Nutrition Notes Initial or Follow up Reassessment Current Diagnosis Diabetes,Hypertension Other Pertinent Diagnosis Metabolic Encephalopathy, Dysphagia, Atrial Fibrilation/ RVR, L-Knee Swell.. Current Diet Pureed Diet (since L 03/29), TF-Jevity 1.2 Chidi @ 60 ml/hr ( from D 03/26). Labs/Tests 04/04: BUN 41, Glu 218. Pertinent Medications 04/04: FeSO4, others nutritionally unremarkable. Height 5 ft 6 in Weight 83.6 kg [place] Body Weight (kg) 59.09 BMI 29.7 Weight change and time frame 2.6 Kg body weight loss reported in 1 week. Weight Status Overweight Subjective/Other Information RD consult for routine F/U on TF tolerance/continuation assessment. TF continues as prescribed, Pureed Diet was ordered since 03/29, but apparently Pt's PO intake continues to be Negligible; thus TF continues. PEG-tube placement has been recommended and family is considering it, but have not made a decision at the time, according to Progress notes. Pt is on Room Air, O2 saturation @ 99%, according to Physical Assessment History notes. Pt presents an unspecified area of concern for skin risk at the time, according to Physical Assessment History notes. Percent of energy/protein needs met: Prescribed Pureed Diet provides for energy/protein needs (1,804 Kcal/77 g) during LOS. Prescribed TF-Jevity 1.2 Chidi @ 60 ml/hr provides for energy/ protein needs (1,720 Kcal/80 g ) during LOS, 101% Kcal; 100% AA. Burn Absent Trauma Absent GI Symptoms None Food Allergy No Skin Integrity/Comment Unspecified area of concern. Current % PO Negligible Minimum of two criteria Yes Energy Intake (non-severe) <75% Estimated Energy Requirement >7 days Interpretation of Weight Loss (non- 1-2% in 1 week severe) Fluid Accumulation Mild (non-severe) Reduced [place] Rubber Strength N/A (non-severe) Protein-Calorie Malnutrition Non-Severe #2 Nutrition Diagnosis Malnutrition Diagnosis Progress(for reassessment Continues documentation) #1 Nutrition Diagnosis Inadequate protein-energy intake Comments: TF continues as prescribed. Diagnosis Progress(for reassessment Continues documentation) Is patient on ventilator? No Is Patient Ambulatory and/or Out of Bed No REE-([facility]-confined to bed) [phone] Calculation Used for Recommendations [facility] Additional Notes Protein: 1-1.2 g/Kg AdjBW; 69- 83 g/day. Fluids: 1 ml/Kcal, or as per MD. Nutrition Intervention Change Diet Order: Continue Pureed Diet as tolerated. Nutrition Support: Continue TF-Jevity 1.2 Chidi @ 60 ml/hr. Flush: 100 ml water Q 4 hr, or as per MD. Kcal 1,720 Protein (gm) 80 Carbohydrates (gm) 243 Fat (gm) 56 Fluid (mL) 1,157 Fiber (gm) 26 % RDI: 101% Kcal; 100% AA. Goal #1 Provide at least 75% of energy /protein needs through Enteral Feeding during LOS. Goal #2 Adjust the dietary intervention to better serve Pt's needs and clinical conditions during LOS. Follow-Up By: 04/11/22 Additional Comments Continue monitoring food tolerance, %PO intake of meals , TF tolerance, and BM.
[2022-04-06] MEDS: DEXTROSE 5% IN WATER 1,000 ML IV SCH (17:17)
--- NOTE | 2022-04-06 17:38 | Event Note ---
Date: 04/06/[address] PEG tube today due to scheduling. OK to resume IV fluids or tube feeds, and will reschedule for Saturday. I have left a VM with the patient's daughter Ms Ochoa.
[2022-04-07] MEDS: HEPARIN 5,000 UNIT/1 ML VIAL SUB-Q SCH ×3 (05:11→21:18)
[2022-04-07] MEDS: DEXTROSE 5% IN WATER 1,000 ML IV SCH ×2 (05:13→21:17)
[2022-04-07] MEDS: INSULIN LISPRO 100 UNIT/ML SUB-Q SCH ×3 (05:17→17:29)
--- NOTE | 2022-04-07 08:31 | Progress Note ---
Assessment and Plan Assessment and plan: #Acute metabolic encephalopathyimproving #H/O Schizophrenia and Dementia -patient not at baseline according to family -CT head noncontrast unremarkable. Chest x-ray unremarkable for acute findings. -UA not suggestive of UTI, antibiotics discontinued. -Discontinued risperidone (per conversation with patient's family about it being discontinued at detention). Discontinued home Seroquel dose (100mg nightly) due to concern for continued lethargy/drowsiness. Unremarkable MRI brain with and without contrast for acute ischemic CVA. - patient with somnolence throughout the day, may be patients new normal #Atrial fibrillation with RVRresolved -Status post Cardene drip -patient prescribed amiodarone and metoprolol PO for rate control; converted to IV due to family refusal to have dobhoff re-inserted -Echocardiogram shows normal ejection fraction -anticoagulation held due to high risk of bleed with patient anemia -Cardiology following, assistance appreciated #Hypokalemiaresolved -will continue to replete and monitor #Poor PO intake #Volume depletion-improved #Possible dysphagia -patient refusing to eat at [place] and refusing medications -Speech therapy recommends PEG tube placement, family notified -GI consulted for possible PEG tube placement; awaiting family consent, plan for procedure Saturday #microcytic anemia -will transfuse for Hgb less than 7 #Hypertension -oral medications held due to no NGT -continue IV PRN medications -goal SBP <160 #Non-insulin dependent type II diabetes mellitus - hemoglobin A1c: Unknown - home regimen: Metformin 500 mg twice daily - current regimen: moderate SSI - blood glucose goal 140-180 while inpatient - continue to monitor #Osteoarthritis -X-ray of left knee suggestive of arthritis -CT of LLE shows moderate to large joint effusion and severe tricompartmental osteoarthritis -arthrocentesis not performed due to low utility and increased risk of infection, discussed with Radiologist -Supportive care #Fever- resolved #UTI ruled out #Obesity #Weight loss counseling #Exercise counseling - BMI 30.7 - Counseled patient on the importance of weight loss, incorporating exercise, and dietary changes (lean meats, fresh fruits and vegetables, and water intake). Patient expresses understanding. - Time: +15 min #Advanced care planning -Disease education conducted, care plan discussed, diagnoses discussed, pro gnosis discussed, and Ms. Niurka Ochoa (SIMA) acknowledges understanding with care plan. -Time: +30 min Social: 04/03/2022: Patient's daughter Niurka Ochoa was contacted about ST new recommendation for PEG tube placement. Ms. Ochoa wants to talk to her other siblings prior to making a decision. - 04/06/2022: Discussed current care plan with patient's daughter Ms. Ochoa at the bedside. The family has decided that they would agree to PEG tube placement. #Discharge planning - Patient is pending PEG tube placement - Case management has been made aware. History Interval history: Patient seen and examined at bedside. Patient alert and conversant when stimulated. She responds appropriately to questions. She denies pain and discomfort at this time. Hospitalist Physical - Physical exam Narrative exam: GENERAL: Well-developed well-nourished. In no acute distress. HEENT: NGT in place @60cc/hr. NECK: Supple. CHEST/LUNGS: CTAB on room air HEART/CARDIOVASCULAR: Irregularly irregular rhythm. No murmur, rubs or gallops appreciated. ABDOMEN: +BS. NT/ND. NEURO: No focal motor deficit. Follows all commands. MUSCULOSKELETAL: No joint effusion EXTREMITIES: No cyanosis, clubbing. L knee swelling. PSYCH: Alert to person and place. - Constitutional Vitals: Temp Pulse Resp BP Pulse Ox 98.6 F 92 H 19 143/100 98 04/07/22 03:38 04/07/22 03:38 04/07/22 03:38 04/07/22 03:38 04/07/22 03:38 General appearance: Present: no acute distress, well-nourished, obese Results - Labs CBC & Chem 7: 04/02/22 18:06 04/05/22 05:44 Labs: Laboratory Last Values WBC 9.9 K/mm3 (4.5-11.0) 04/02/22 18:06 RBC 3.57 M/mm3 (3.65-5.03) L 04/02/22 18:06 Hgb 7.6 gm/dl (10.1-14.3) L 04/02/22 18:06 Hct 24.2 % (30.3-42.9) L 04/02/22 18:06 MCV 68 fl (79-97) L 04/02/22 18:06 MCH 21 pg (28-32) L 04/02/22 18:06 MCHC 32 % (30-34) 04/02/22 18:06 RDW 17.9 % (13.2-15.2) H 04/02/22 18:06 Plt Count 383 K/mm3 (140-440) 04/02/22 18:06 Lymph % (Auto) 16.7 % (13.4-35.0) 04/02/22 18:06 [place] % (Auto) 7.8 % (0.0-7.3) H 04/02/22 18:06 Eos % (Auto) 0.7 % (0.0-4.3) 04/02/22 18:06 Baso % (Auto) 0.4 % (0.0-1.8) 04/02/22 18:06 Lymph # (Auto) 1.6 K/mm3 (1.2-5.4) 04/02/22 18:06 [place] # (Auto) 0.8 K/mm3 (0.0-0.8) 04/02/22 18:06 Eos # (Auto) 0.1 K/mm3 (0.0-0.4) 04/02/22 18:06 Baso # (Auto) 0.0 K/mm3 (0.0-0.1) 04/02/22 18:06 Seg Neutrophils % 74.4 % (40.0-70.0) H 04/02/22 18:06 Seg Neutrophils # 7.3 K/mm3 (1.8-7.7) 04/02/22 18:06 Sodium 133 mmol/L (137-145) L D 04/05/22 05:44 Potassium 4.9 mmol/L (3.6-5.0) 04/05/22 05:44 Chloride 97.3 mmol/L (98-107) L 04/05/22 05:44 Carbon Dioxide 25 mmol/L (22-30) 04/05/22 05:44 Anion Gap 16 mmol/L 04/05/22 05:44 BUN 31 mg/dL (7-17) H 04/05/22 05:44 Creatinine 1.0 mg/dL (0.6-1.2) 04/05/22 05:44 Estimated GFR > 60 ml/min 04/05/22 05:44 BUN/Creatinine Ratio 31 % 04/05/22 05:44 Glucose 177 mg/dL (65-100) H 04/05/22 05:44 POC Glucose 153 mg/dL (70-105) H 04/07/22 05:10 Calcium 9.0 mg/dL (8.4-10.2) 04/05/22 05:44 Total Bilirubin 0.30 mg/dL (0.1-1.2) 03/24/22 18:58 Direct Bilirubin < 0.2 mg/dL (0-0.2) 03/24/22 18:58 Indirect Bilirubin 0.1 mg/dL 03/24/22 18:58 AST 32 units/L (5-40) 03/24/22 18:58 ALT 16 units/L (7-56) 03/24/22 18:58 Alkaline Phosphatase 81 units/L (35-129) 03/24/22 18:58 Total Protein 6.8 g/dL (6.3-8.2) 03/24/22 18:58 Albumin 3.3 g/dL (3.9-5) L 03/24/22 18:58 Albumin/Globulin Ratio 0.9 % 03/24/22 18:58 Urine Color Colorless (Yellow) 03/24/22 Unknown Urine Turbidity Clear (Clear) 03/24/22 Unknown Urine pH 5.0 (5.0-7.0) 03/24/22 Unknown Ur Specific Moon 1.025 (1.003-1.030) 03/24/22 Unknown Urine Protein 30 mg/dl mg/dL (Negative) 03/24/22 Unknown Urine Glucose (UA) Negative mg/dL (Negative) 03/24/22 Unknown Urine Ketones Negative mg/dL (Negative) 03/24/22 Unknown Urine Blood Negative (Negative) 03/24/22 Unknown Urine Nitrite Negative (Negative) 03/24/22 Unknown Urine Bilirubin Negative (Negative) 03/24/22 Unknown Urine Urobilinogen 0.2 mg/dL (<2.0) 03/24/22 Unknown Ur Leukocyte Esterase 75 (Negative) 03/24/22 Unknown Urine WBC (Auto) < 1.0 /HPF (0.0-6.0) 03/24/22 Unknown Urine RBC (Auto) < 1.0 /HPF (0.0-6.0) 03/24/22 Unknown Urine Bacteria (Auto) 1+ /HPF (Negative) 03/24/22 Unknown Coronavirus (PCR) Negative (Negative) 04/02/22 11:00 Microbiology: Microbiology 04/02/22 18:06 Peripheral/Venous Blood Culture - Preliminary NO GROWTH AFTER 4 DAYS 04/02/22 18:06 Peripheral/Venous Blood Culture - Preliminary NO GROWTH AFTER 4 DAYS [place]/IV: Voiding Method External Female Catheter Active Medications - Current Medications Current Medications: Generic Name Dose Route Start Last Admin Trade Name Freq PRN Reason Stop Dose Admin Acetaminophen 650 mg 03/25/22 00:47 04/04/22 21:16 Acetaminophen 325 Mg Tab PO 650 mg Q4H PRN Administration Pain MILD(1-3)/Fever >100.5/VILLANUEVA Amiodarone HCl 200 mg 03/26/22 13:00 04/06/22 22:35 Amiodarone 200 Mg Tab PO Not Given BID SINCERE Amlodipine Besylate 10 mg 04/01/22 16:00 04/06/22 09:00 Amlodipine 10 Mg Tab PO 10 mg QDAY SINCERE Administration Clonidine HCl 0.1 mg 03/25/22 11:52 Clonidine 0.1 Mg Tab PO Q8H PRN SBP >/=170; DBP >/=110 Dextrose 50 ml 03/25/22 10:26 Dextrose 50% In Water (25gm) 50 Ml Syringe IV Q30MIN PRN Hypoglycemia Protocol Ferrous Sulfate 325 mg 03/26/22 10:00 04/06/22 09:00 Ferrous Sulfate 325 Mg Tab PO 325 mg QDAY SINCERE Administration Heparin Sodium (Porcine) 5,000 unit 03/25/22 06:00 04/07/22 05:11 Heparin 5,000 Unit/1 Ml Vial SUB-Q 5,000 unit Q8HR SINCERE Administration Hydrochlorothiazide 50 mg 03/30/22 10:00 04/06/22 09:00 Hydrochlorothiazide 25 Mg Tab PO 50 mg QDAY SINCERE Administration Dextrose 1,000 mls @ 75 mls/hr 04/06/22 18:00 04/07/22 05:13 D5w IV 75 mls/hr DIRECT SINCERE Administration Insulin Human Lispro 0 unit 03/26/22 17:00 04/07/22 05:17 Insulin Lispro 100 Unit/Ml SUB-Q 1 unit Q6H SINCERE Administration Protocol Magnesium Hydroxide 30 ml 03/25/22 00:52 Magnesium Hydroxide (Mom) Oral Liqd Udc PO Q4H PRN Constipation Metformin HCl 500 mg 04/01/22 09:00 04/06/22 17:09 Metformin 500 Mg Tab PO Not Given BIDDIAB SINCERE Metoprolol Tartrate 100 mg 03/28/22 22:00 04/06/22 22:35 Metoprolol Tartrate 100 Mg Tab PO Not Given BID SINCERE Morphine Sulfate 2 mg 03/25/22 00:47 03/28/22 10:00 Morphine 2 Mg/1 Ml Inj IV 2 mg Q4H PRN Administration Pain, Moderate (4-6) Morphine Sulfate 4 mg 03/25/22 00:47 Morphine 4 Mg/1 Ml Inj IV Q4H PRN Pain , Severe (7-10) Ondansetron HCl 4 mg 03/25/22 00:47 Ondansetron 4 Mg/2 Ml Inj IV Q8H PRN Nausea And Vomiting Sodium Chloride 10 ml 03/25/22 10:00 04/06/22 22:38 Sodium Chloride 0.9% 10 Ml Flush Syringe IV 10 ml BID SINCERE Administration Sodium Chloride 10 ml 03/25/22 00:47 Sodium Chloride 0.9% 10 Ml Flush Syringe IV PRN PRN LINE FLUSH Nutrition/Malnutrition Assess - Dietary Evaluation Nutrition/Malnutrition Findings: Nutrition Notes Start: 03/26/22 11: 41 Freq: Status: Active Protocol: Document 04/04/22 12:08 CELESTINO (Rec: 04/04/22 12:32 CELESTINO [email or web address]) Nutrition Notes Initial or Follow up Reassessment Current Diagnosis Diabetes,Hypertension Other Pertinent Diagnosis Metabolic Encephalopathy, Dysphagia, Atrial Fibrilation/ RVR, L-Knee Swell.. Current Diet Pureed Diet (since L 03/29), TF-Jevity 1.2 Chidi @ 60 ml/hr ( from D 03/26). Labs/Tests 04/04: BUN 41, Glu 218. Pertinent Medications 04/04: FeSO4, others nutritionally unremarkable. Height 5 ft 6 in Weight 83.6 kg [place] Body Weight (kg) 59.09 BMI 29.7 Weight change and time frame 2.6 Kg body weight loss reported in 1 week. Weight Status Overweight Subjective/Other Information RD consult for routine F/U on TF tolerance/continuation assessment. TF continues as prescribed, Pureed Diet was ordered since 03/29, but apparently Pt's PO intake continues to be Negligible; thus TF continues. PEG-tube placement has been recommended and family is considering it, but have not made a decision at the time, according to Progress notes. Pt is on Room Air, O2 saturation @ 99%, according to Physical Assessment History notes. Pt presents an unspecified area of concern for skin risk at the time, according to Physical Assessment History notes. Percent of energy/protein needs met: Prescribed Pureed Diet provides for energy/protein needs (1,804 Kcal/77 g) during LOS. Prescribed TF-Jevity 1.2 Chidi @ 60 ml/hr provides for energy/ protein needs (1,720 Kcal/80 g ) during LOS, 101% Kcal; 100% AA. Burn Absent Trauma Absent GI Symptoms None Food Allergy No Skin Integrity/Comment Unspecified area of concern. 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 Diagnosis Progress(for reassessment Continues documentation) Is patient on ventilator? No Is Patient Ambulatory and/or Out of Bed No REE-(Queen-St. Jeor-confined to bed) [phone] Calculation [facility]ations [facility] Additional Notes Protein: 1-1.2 g/Kg AdjBW; 69- 83 g/day. Fluids: 1 ml/Kcal, or as per MD. Nutrition Intervention Change Diet Order: Continue Pureed Diet as tolerated. Nutrition Support: Continue TF-Jevity 1.2 Chidi @ 60 ml/hr. Flush: 100 ml water Q 4 hr, or as per MD. Kcal 1,720 Protein (gm) 80 Carbohydrates (gm) 243 Fat (gm) 56 Fluid (mL) 1,157 Fiber (gm) 26 % RDI: 101% Kcal; 100% AA. Goal #1 Provide at least 75% of energy /protein needs through Enteral Feeding during LOS. Goal #2 Adjust the dietary intervention to better serve Pt's needs and clinical conditions during LOS. Follow-Up By: 08/24/22 Additional Comments Continue monitoring food tolerance, %PO intake of meals , TF tolerance, and BM.
[2022-04-07] MEDS ORDERED: METOPROLOL TARTRATE 5 MG/5 ML INJ IV PRN (08:32)
--- NOTE | 2022-04-07 09:18 | Progress Note ---
Assessment and Plan Paroxysmal atrial fibrillation Dysphagia Awaiting PEG placement Dementia Anemia Recommendations: Continue rhythm control with amiodarone and metoprolol Patient is not a candidate for long-term systemic anticoagulation We will continue to follow intermittently. Subjective Date of service: 04/07/22 Principal diagnosis: Altered mental status, rapid atrial fibrillation Interval history: Patient is lying in bed, in no distress. Telemetry reviewed revealing normal sinus rhythm. Objective Vital Signs Temp Pulse Resp BP Pulse Ox 04/07/22 08:15 82 98 04/07/22 03:38 98.6 F 92 H 19 143/100 98 04/06/22 23:35 98.8 F 89 20 149/87 100 04/06/22 22:35 82 140/77 04/06/22 22:00 88 04/06/22 20:00 98 04/06/22 19:38 99.0 F 91 H 19 140/88 98 04/06/22 16:08 98.7 F 80 18 123/82 97 04/06/22 11:35 98.8 F 82 18 129/77 95 - Physical Examination General: No Apparent Distress, Other (Patient appears lethargic and chronically ill obese) HEENT: Positive: EOMI Neck: Positive: neck supple Cardiac: Positive: Reg Rate and Rhythm Lungs: Positive: Normal Exam Neuro: Positive: Weakness (Generalized lethargy) Abdomen: Positive: Soft (Obese) Skin: Positive: Clear Extremities: Absent: edema
[2022-04-07] MEDS ORDERED: DEXTROSE 5% IV SCH (10:00)
[2022-04-07] MEDS ORDERED: AMIODARONE IV SCH (10:00)
[2022-04-07] MEDS ORDERED: WATER IV SCH (10:00)
[2022-04-07] MEDS: amLODIPine 10 MG TAB PO SCH (10:51)
[2022-04-07] MEDS: metFORMIN 500 MG TAB PO SCH ×2 (10:51→17:28)
[2022-04-07] MEDS: FERROUS SULFATE 325 MG TAB PO SCH (10:52)
[2022-04-07] MEDS: METOPROLOL TARTRATE 100 MG TAB PO SCH ×2 (10:52→22:02)
[2022-04-07] MEDS: hydroCHLOROthiazide 25 MG TAB PO SCH (10:52)
[2022-04-07] MEDS ORDERED: AMIODARONE 900 MG in DEXTROSE 5% IN WATER 482 ML IV SCH (14:00)
--- NOTE | 2022-04-07 19:01 | Gastroenterology Progress Note ---
Assessment and Plan # Dementia # h/o Schizophrenia - not having adequate PO intake for nutritional support. - Evaluated by Speech and concern for holding food in her mouth. - discussed PEG tube with daughter and would like to proceed with procedure. Explained the risks of potential complications and the nature of the procedure. - will plan for EGD/PEG on Saturday. - will check labs. - keep NPO MN on Saturday. - Patient Problems (1) Neurogenic dysphagia Current Visit: Yes Status: Acute Subjective Date of service: 04/07/22 Principal diagnosis: Altered mental status, rapid atrial fibrillation Interval history: Patient unable to answer questions. Disoriented. Objective - Constitutional Vitals: Temp Pulse Resp BP Pulse Ox 98.6 F 75 19 143/100 98 04/07/22 03:38 04/07/22 10:00 04/07/22 03:38 04/07/22 03:38 04/07/22 10:00 General appearance: no acute distress - EENT ENT: poor dentition - Neck Neck: supple - Respiratory Respiratory effort: normal - Cardiovascular Rhythm: irregularly irregular Heart Sounds: Present: S1 & S2 - Gastrointestinal General gastrointestinal: Present: soft, non-tender, non-distended - Integumentary Integumentary: Present: clear, warm - Neurologic Neurological: disoriented - Labs CBC & Chem 7: 04/02/22 18:06 04/05/22 05:44 Labs: Laboratory Results - last 24 hr 04/06/22 04/07/22 04/07/22 23:37 05:10 11:10 POC Glucose 144 H 153 H 168 H 04/07/22 15:51 POC Glucose 174 H
[2022-04-08] MEDS: INSULIN LISPRO 100 UNIT/ML SUB-Q SCH ×4 (03:39→17:42)
[2022-04-08] MEDS: HEPARIN 5,000 UNIT/1 ML VIAL SUB-Q SCH ×3 (06:18→21:42)
--- NOTE | 2022-04-08 07:48 | Progress Note ---
Assessment and Plan Assessment and plan: #Acute metabolic encephalopathyimproving #H/O Schizophrenia and Dementia -patient not at baseline according to family -CT head noncontrast unremarkable. Chest x-ray unremarkable for acute findings. -UA not suggestive of UTI, antibiotics discontinued. -Discontinued risperidone (per conversation with patient's family about it being discontinued at skilled nursing). Discontinued home Seroquel dose (100mg nightly) due to concern for continued lethargy/drowsiness. Unremarkable MRI brain with and without contrast for acute ischemic CVA. - patient with somnolence throughout the day, may be patients new normal #Atrial fibrillation with RVR -Status post Cardene drip -patient prescribed amiodarone and metoprolol PO for rate control; converted to IV due to family refusal to have dobhoff re-inserted -Echocardiogram shows normal ejection fraction -anticoagulation held due to high risk of bleed with patient anemia -Cardiology following, assistance appreciated #Fever -Tmax 101.2 x1, will continue to monitor -currently defervesced, will work up if repeat occurs #Hypokalemiaresolved -will continue to replete and monitor #Poor PO intake #Volume depletion-improved #Possible dysphagia -patient refusing to eat at [place] and refusing medications -Speech therapy recommends PEG tube placement, family notified -GI following, assistance appreciated -plan for PEG tube tomorrow #microcytic anemia -will transfuse for Hgb less than 7 #Hypertension -oral medications held due to no NGT -continue IV PRN medications -goal SBP <160 #Non-insulin dependent type II diabetes mellitus - hemoglobin A1c: Unknown - home regimen: Metformin 500 mg twice daily - current regimen: moderate SSI - blood glucose goal 140-180 while inpatient - continue to monitor #Osteoarthritis -X-ray of left knee suggestive of arthritis -CT of LLE shows moderate to large joint effusion and severe tricompartmental osteoarthritis -arthrocentesis not performed due to low utility and increased risk of infection, discussed with Radiologist -Supportive care #UTI ruled out #Obesity #Weight loss counseling #Exercise counseling - BMI 30.7 - Counseled patient on the importance of weight loss, incorporating exercise, and dietary changes (lean meats, fresh fruits and vegetables, and water intake). Patient expresses understanding. - Time: +15 min Social: 04/03/2022: Patient's daughter Niurka Ohcoa was contacted about ST new recommendation for PEG tube placement. Ms. Ochoa wants to talk to her other siblings prior to making a decision. - 04/06/2022: Discussed current care plan with patient's daughter Ms. Ochoa at the bedside. The family has decided that they would agree to PEG tube placement. #Discharge planning - Patient is pending PEG tube placement - Case management has been made aware. History Interval history: Patient seen and examined at bedside. Patient alert to person, but confused. She tends to respond appropriately to questions. Hospitalist Physical - Physical exam Narrative exam: GENERAL: Well-developed well-nourished. In no acute distress. HEENT: Normocephalic. NECK: Supple. CHEST/LUNGS: CTAB on room air HEART/CARDIOVASCULAR: Irregularly irregular rhythm. No murmur, rubs or gallops appreciated. ABDOMEN: +BS. NT/ND. NEURO: No focal motor deficit. MUSCULOSKELETAL: No joint effusion EXTREMITIES: No cyanosis, clubbing. L knee swelling. PSYCH: Alert to person, otherwise confused - Constitutional Vitals: Temp Pulse Resp BP Pulse Ox 99.1 F 112 H 20 160/84 98 04/08/22 03:21 04/08/22 03:21 04/08/22 03:21 04/08/22 03:21 04/08/22 03:22 General appearance: Present: no acute distress, well-nourished, obese Results - Labs CBC & Chem 7: 04/02/22 18:06 04/05/22 05:44 Labs: Laboratory Last Values WBC 9.9 K/mm3 (4.5-11.0) 04/02/22 18:06 RBC 3.57 M/mm3 (3.65-5.03) L 04/02/22 18:06 Hgb 7.6 gm/dl (10.1-14.3) L 04/02/22 18:06 Hct 24.2 % (30.3-42.9) L 04/02/22 18:06 MCV 68 fl (79-97) L 04/02/22 18:06 MCH 21 pg (28-32) L 04/02/22 18:06 MCHC 32 % (30-34) 04/02/22 18:06 RDW 17.9 % (13.2-15.2) H 04/02/22 18:06 Plt Count 383 K/mm3 (140-440) 04/02/22 18:06 Lymph % (Auto) 16.7 % (13.4-35.0) 04/02/22 18:06 Barry % (Auto) 7.8 % (0.0-7.3) H 04/02/22 18:06 Eos % (Auto) 0.7 % (0.0-4.3) 04/02/22 18:06 Baso % (Auto) 0.4 % (0.0-1.8) 04/02/22 18:06 Lymph # (Auto) 1.6 K/mm3 (1.2-5.4) 04/02/22 18:06 Barry # (Auto) 0.8 K/mm3 (0.0-0.8) 04/02/22 18:06 Eos # (Auto) 0.1 K/mm3 (0.0-0.4) 04/02/22 18:06 Baso # (Auto) 0.0 K/mm3 (0.0-0.1) 04/02/22 18:06 Seg Neutrophils % 74.4 % (40.0-70.0) H 04/02/22 18:06 Seg Neutrophils # 7.3 K/mm3 (1.8-7.7) 04/02/22 18:06 Sodium 133 mmol/L (137-145) L D 04/05/22 05:44 Potassium 4.9 mmol/L (3.6-5.0) 04/05/22 05:44 Chloride 97.3 mmol/L (98-107) L 04/05/22 05:44 Carbon Dioxide 25 mmol/L (22-30) 04/05/22 05:44 Anion Gap 16 mmol/L 04/05/22 05:44 BUN 31 mg/dL (7-17) H 04/05/22 05:44 Creatinine 1.0 mg/dL (0.6-1.2) 04/05/22 05:44 Estimated GFR > 60 ml/min 04/05/22 05:44 BUN/Creatinine Ratio 31 % 04/05/22 05:44 Glucose 177 mg/dL (65-100) H 04/05/22 05:44 POC Glucose 160 mg/dL (70-105) H 04/08/22 05:15 Calcium 9.0 mg/dL (8.4-10.2) 04/05/22 05:44 Total Bilirubin 0.30 mg/dL (0.1-1.2) 03/24/22 18:58 Direct Bilirubin < 0.2 mg/dL (0-0.2) 03/24/22 18:58 Indirect Bilirubin 0.1 mg/dL 03/24/22 18:58 AST 32 units/L (5-40) 03/24/22 18:58 ALT 16 units/L (7-56) 03/24/22 18:58 Alkaline Phosphatase 81 units/L (35-129) 03/24/22 18:58 Total Protein 6.8 g/dL (6.3-8.2) 03/24/22 18:58 Albumin 3.3 g/dL (3.9-5) L 03/24/22 18:58 Albumin/Globulin Ratio 0.9 % 03/24/22 18:58 Urine Color Colorless (Yellow) 03/24/22 Unknown Urine Turbidity Clear (Clear) 03/24/22 Unknown Urine pH 5.0 (5.0-7.0) 03/24/22 Unknown Ur Specific [place] 1.025 (1.003-1.030) 03/24/22 Unknown Urine Protein 30 mg/dl mg/dL (Negative) 03/24/22 Unknown Urine Glucose (UA) Negative mg/dL (Negative) 03/24/22 Unknown Urine Ketones Negative mg/dL (Negative) 03/24/22 Unknown Urine Blood Negative (Negative) 03/24/22 Unknown Urine Nitrite Negative (Negative) 03/24/22 Unknown Urine Bilirubin Negative (Negative) 03/24/22 Unknown Urine Urobilinogen 0.2 mg/dL (<2.0) 03/24/22 Unknown Ur Leukocyte Esterase 75 (Negative) 03/24/22 Unknown Urine WBC (Auto) < 1.0 /HPF (0.0-6.0) 03/24/22 Unknown Urine RBC (Auto) < 1.0 /HPF (0.0-6.0) 03/24/22 Unknown Urine Bacteria (Auto) 1+ /HPF (Negative) 03/24/22 Unknown Coronavirus (PCR) Negative (Negative) 04/02/22 11:00 Microbiology: Microbiology 04/02/22 18:06 Peripheral/Venous Blood Culture - Final NO GROWTH AFTER 5 DAYS 04/02/22 18:06 Peripheral/Venous Blood Culture - Final NO GROWTH AFTER 5 DAYS [place]/IV: Voiding Method External Female Catheter Active Medications - Current Medications Current Medications: Generic Name Dose Route Start Last Admin Trade Name Freq PRN Reason Stop Dose Admin Acetaminophen 650 mg 03/25/22 00:47 04/04/22 21:16 Acetaminophen 325 Mg Tab PO 650 mg Q4H PRN Administration Pain MILD(1-3)/Fever >100.5/VILLANUEVA Amlodipine Besylate 10 mg 04/01/22 16:00 04/07/22 10:51 Amlodipine 10 Mg Tab PO Not Given QDAY SINCERE Clonidine HCl 0.1 mg 03/25/22 11:52 Clonidine 0.1 Mg Tab PO Q8H PRN SBP >/=170; DBP >/=110 Dextrose 50 ml 03/25/22 10:26 Dextrose 50% In Water (25gm) 50 Ml Syringe IV Q30MIN PRN Hypoglycemia Protocol Ferrous Sulfate 325 mg 03/26/22 10:00 04/07/22 10:52 Ferrous Sulfate 325 Mg Tab PO Not Given QDAY SINCERE Heparin Sodium (Porcine) 5,000 unit 03/25/22 06:00 04/08/22 06:18 Heparin 5,000 Unit/1 Ml Vial SUB-Q 5,000 unit Q8HR SINCERE Administration Hydrochlorothiazide 50 mg 03/30/22 10:00 04/07/22 10:52 Hydrochlorothiazide 25 Mg Tab PO Not Given QDAY SINCERE Dextrose 1,000 mls @ 75 mls/hr 04/06/22 18:00 04/07/22 21:17 D5w IV 75 mls/hr DIRECT SINCERE Administration Amiodarone HCl 900 mg/ 500 mls @ 8.333 mls/hr 04/07/22 14:00 04/07/22 14:04 Dextrose IV 0.25 mg/min DIRECT SINCERE 8.333 mls/hr Administration 0.25 MG/MIN Insulin Human Lispro 0 unit 03/26/22 17:00 04/08/22 06:18 Insulin Lispro 100 Unit/Ml SUB-Q 1 unit Q6H SINCERE Administration Protocol Magnesium Hydroxide 30 ml 03/25/22 00:52 Magnesium Hydroxide (Mom) Oral Liqd Udc PO Q4H PRN Constipation Metformin HCl 500 mg 04/01/22 09:00 04/07/22 17:28 Metformin 500 Mg Tab PO Not Given BIDDIAB SINCERE Metoprolol Tartrate 100 mg 03/28/22 22:00 04/07/22 22:02 Metoprolol Tartrate 100 Mg Tab PO Not Given BID SINCERE Metoprolol Tartrate 5 mg 04/07/22 08:32 Metoprolol Tartrate 5 Mg/5 Ml Inj IV Q4H PRN Tachyarrhythmias Morphine Sulfate 2 mg 03/25/22 00:47 03/28/22 10:00 Morphine 2 Mg/1 Ml Inj IV 2 mg Q4H PRN Administration Pain, Moderate (4-6) Morphine Sulfate 4 mg 03/25/22 00:47 Morphine 4 Mg/1 Ml Inj IV Q4H PRN Pain , Severe (7-10) Ondansetron HCl 4 mg 03/25/22 00:47 Ondansetron 4 Mg/2 Ml Inj IV Q8H PRN Nausea And Vomiting Sodium Chloride 10 ml 03/25/22 10:00 04/07/22 22:03 Sodium Chloride 0.9% 10 Ml Flush Syringe IV 10 ml BID SINCERE Administration Sodium Chloride 10 ml 03/25/22 00:47 Sodium Chloride 0.9% 10 Ml Flush Syringe IV PRN PRN LINE FLUSH Nutrition/Malnutrition Assess - Dietary Evaluation Nutrition/Malnutrition Findings: Nutrition Notes Start: 03/26/22 11:41 Freq: Status: Active Protocol: Document 04/04/22 12:08 CELESTINO (Rec: 04/04/22 12:32 CELESTINO [id number]) Nutrition Notes Initial or Follow up Reassessment Current Diagnosis Diabetes,Hypertension Other Pertinent Diagnosis Metabolic Encephalopathy, Dysphagia, Atrial Fibrilation/ RVR, L-Knee Swell.. Current Diet Pureed Diet (since L 03/29), TF-Jevity 1.2 Chidi @ 60 ml/hr ( from D 03/26). Labs/Tests 04/04: BUN 41, Glu 218. Pertinent Medications 04/04: FeSO4, others nutritionally unremarkable. Height 5 ft 6 in Weight 83.6 kg [place] Body Weight (kg) 59.09 BMI 29.7 Weight change and time frame 2.6 Kg body weight loss reported in 1 week. Weight Status Overweight Subjective/Other Information RD consult for routine F/U on TF tolerance/continuation assessment. TF continues as prescribed, Pureed Diet was ordered since 03/29, but apparently Pt's PO intake continues to be Negligible; thus TF continues. PEG-tube placement has been recommended and family is considering it, but have not made a decision at the time, according to Progress notes. Pt is on Room Air, O2 saturation @ 99%, according to Physical Assessment History notes. Pt presents an unspecified area of concern for skin risk at the time, according to Physical Assessment History notes. Percent of energy/protein needs met: Prescribed Pureed Diet provides for energy/protein needs (1,804 Kcal/77 g) during LOS. Prescribed TF-Jevity 1.2 Chidi @ 60 ml/hr provides for energy/ protein needs (1,720 Kcal/80 g ) during LOS, 101% Kcal; 100% AA. Burn Absent Trauma Absent GI Symptoms None Food Allergy No Skin Integrity/Comment Unspecified area of concern. Current % PO Negligible Minimum of two criteria Yes Energy Intake (non-severe) <75% Estimated Energy Requirement >7 days Interpretation of Weight Loss (non- 1-2% in 1 week severe) Fluid Accumulation Mild (non-severe) Reduced [employer] Strength N/A (non-severe) Protein-Calorie Malnutrition Non-Severe #2 Nutrition Diagnosis Malnutrition Diagnosis Progress(for reassessment Continues documentation) #1 Nutrition Diagnosis Inadequate protein-energy intake Comments: TF continues as prescribed. Diagnosis Progress(for reassessment Continues documentation) Is patient on ventilator? No Is Patient Ambulatory and/or Out of Bed No REE-([facility]-confined to bed) 8914.666 Calculation Used for Recommendations [facility] Additional Notes Protein: 1-1.2 g/Kg AdjBW; 69- 83 g/day. Fluids: 1 ml/Kcal, or as per MD. Nutrition Intervention Change Diet Order: Continue Pureed Diet as tolerated. Nutrition Support: Continue TF-Jevity 1.2 Chidi @ 60 ml/hr. Flush: 100 ml water Q 4 hr, or as per MD. Kcal 1,720 Protein (gm) 80 Carbohydrates (gm) 243 Fat (gm) 56 Fluid (mL) 1,157 Fiber (gm) 26 % RDI: 101% Kcal; 100% AA. Goal #1 Provide at least 75% of energy /protein needs through Enteral Feeding during LOS. Goal #2 Adjust the dietary intervention to better serve Pt's needs and clinical conditions during LOS. Follow-Up By: 04/11/22 Additional Comments Continue monitoring food tolerance, %PO intake of meals , TF tolerance, and BM.
[2022-04-08] MEDS: metFORMIN 500 MG TAB PO SCH ×2 (08:16→17:00)
--- NOTE | 2022-04-08 09:53 | Progress Note ---
Assessment and Plan Paroxysmal atrial fibrillation Dysphagia Awaiting PEG placement Dementia Anemia Recommendations: Continue rhythm control with amiodarone and metoprolol Patient was switched to IV amiodarone yesterday due to inability to take p.o. pills. Patient is not a candidate for long-term systemic anticoagulation Subjective Date of service: 04/08/22 Principal diagnosis: Altered mental status, rapid atrial fibrillation Interval history: Patient is lying in bed, in no distress. Telemetry reviewed revealing normal sinus rhythm. Patient was switched to IV amiodarone yesterday due to inability to take p.o. pills. Objective Vital Signs Temp Pulse Resp BP Pulse Ox 04/08/22 07:42 98.1 F 102 H 18 124/77 97 04/08/22 03:22 98 04/08/22 03:21 99.1 F 112 H 20 160/84 86 04/07/22 23:29 99.8 F H 89 19 194/90 98 04/07/22 22:00 98 04/07/22 19:29 101.2 F H 94 H 18 145/79 99 04/07/22 11:51 97.9 F 92 H 18 150/91 94 04/07/22 10:00 75 98 - Physical Examination General: No Apparent Distress, Other (Patient appears lethargic and chronically ill obese) HEENT: Positive: EOMI Neck: Positive: neck supple Cardiac: Positive: Reg Rate and Rhythm Lungs: Positive: Normal Exam Neuro: Positive: Weakness (Generalized lethargy) Abdomen: Positive: Soft (Obese) Skin: Positive: Clear Extremities: Absent: edema
[2022-04-08 10:16] LABS: Hematocrit 24.4 % (30.3-42.9); Hemoglobin 7.2 gm/dl (10.1-14.3); Mean Corpuscular HGB Conc 29 % (30-34); Mean Corpuscular Volume 72 fl (79-97); Platelet Count 291 K/mm3 (140-440); Red Cell Distribution Width 18.7 % (13.2-15.2)
[2022-04-08] MEDS: METOPROLOL TARTRATE 100 MG TAB PO SCH ×2 (10:18→21:42)
[2022-04-08] MEDS: FERROUS SULFATE 325 MG TAB PO SCH (10:18)
[2022-04-08] MEDS: hydroCHLOROthiazide 25 MG TAB PO SCH (10:18)
[2022-04-08] MEDS: amLODIPine 10 MG TAB PO SCH (10:18)
[2022-04-08 10:27] LABS: INR 1.23 (0.87-1.13)
[2022-04-08 10:28] LABS: BUN/Creatinine Ratio 23; Blood Urea Nitrogen 18 mg/dL (7-17); Calcium 7.7 mg/dL (8.4-10.2); Hemolysis Index 0
[2022-04-08 12:42] LABS: BUN/Creatinine Ratio 23; Blood Urea Nitrogen 21 mg/dL (7-17); Calcium 9.1 mg/dL (8.4-10.2); Hemolysis Index 0
[2022-04-08] MEDS: MORPHINE 2 MG/1 ML INJ IV PRN (13:44)
[2022-04-08] MEDS ORDERED: LIP THERAPY VASELINE TP PRN (14:00)
[2022-04-09] MEDS: INSULIN LISPRO 100 UNIT/ML SUB-Q SCH ×4 (01:59→17:39)
[2022-04-09] MEDS: HEPARIN 5,000 UNIT/1 ML VIAL SUB-Q SCH ×3 (05:35→22:22)
[2022-04-09 06:15] LABS: BUN/Creatinine Ratio 26; Blood Urea Nitrogen 26 mg/dL (7-17); Calcium 9.2 mg/dL (8.4-10.2); Hemolysis Index 36
[2022-04-09] MEDS: metFORMIN 500 MG TAB PO SCH ×2 (08:36→17:39)
[2022-04-09] MEDS: FERROUS SULFATE 325 MG TAB PO SCH (10:38)
[2022-04-09] MEDS: hydroCHLOROthiazide 25 MG TAB PO SCH (10:38)
[2022-04-09] MEDS: amLODIPine 10 MG TAB PO SCH (10:38)
[2022-04-09] MEDS: METOPROLOL TARTRATE 100 MG TAB PO SCH ×2 (10:38→22:23)
--- NOTE | 2022-04-09 11:11 | Progress Note ---
Assessment and Plan Assessment and plan: #Acute metabolic encephalopathyimproving #H/O Schizophrenia and Dementia -patient not at baseline according to family -CT head noncontrast unremarkable. Chest x-ray unremarkable for acute findings. -UA not suggestive of UTI, antibiotics discontinued. -Discontinued risperidone (per conversation with patient's family about it being discontinued at skilled nursing). Discontinued home Seroquel dose (100mg nightly) due to concern for continued lethargy/drowsiness. Unremarkable MRI brain with and without contrast for acute ischemic CVA. - patient with somnolence throughout the day, may be patients new normal #Atrial fibrillation with RVR -Status post Cardene drip -patient prescribed amiodarone and metoprolol PO for rate control; converted to IV due to family refusal to have dobhoff re-inserted -Echocardiogram shows normal ejection fraction -anticoagulation held due to high risk of bleed with patient anemia -Cardiology following, assistance appreciated #Fever-resolved -currently defervesced, will work up if repeat occurs #Hypokalemiaresolved -will continue to replete and monitor #Poor PO intake #Volume depletion-improved #Possible dysphagia -patient refusing to eat at [place] and refusing medications -Speech therapy recommends PEG tube placement, family notified -GI following, assistance appreciated -plan for PEG tube today #microcytic anemia -will transfuse for Hgb less than 7 #Hypertension -oral medications held due to no NGT -continue IV PRN medications -goal SBP <160 #Non-insulin dependent type II diabetes mellitus - hemoglobin A1c: Unknown - home regimen: Metformin 500 mg twice daily - current regimen: moderate SSI - blood glucose goal 140-180 while inpatient - continue to monitor #Osteoarthritis -X-ray of left knee suggestive of arthritis -CT of LLE shows moderate to large joint effusion and severe tricompartmental osteoarthritis -arthrocentesis not performed due to low utility and increased risk of infection, discussed with Radiologist -Supportive care #UTI ruled out #Obesity #Weight loss counseling #Exercise counseling - BMI 30.7 - Counseled patient on the importance of weight loss, incorporating exercise, and dietary changes (lean meats, fresh fruits and vegetables, and water intake). Patient expresses understanding. - Time: +15 min Social: 04/03/2022: Patient's daughter Niurka Ochoa was contacted about ST new recommendation for PEG tube placement. Ms. Ochoa wants to talk to her other siblings prior to making a decision. - 04/06/2022: Discussed current care plan with patient's daughter Ms. Ochoa at the bedside. The family has decided that they would agree to PEG tube placement. #Discharge planning - Patient is pending PEG tube placement - Case management has been made aware. History Interval history: Patient seen and examined at bedside. Patient alert to person, but lethargic. She did not respond to questions today. Hospitalist Physical - Physical exam Narrative exam: GENERAL: Well-developed well-nourished. In no acute distress. HEENT: Normocephalic. NECK: Supple. CHEST/LUNGS: CTAB on room air HEART/CARDIOVASCULAR: Irregularly irregular rhythm. No murmur, rubs or gallops appreciated. ABDOMEN: +BS. NT/ND. NEURO: No focal motor deficit. MUSCULOSKELETAL: No joint effusion EXTREMITIES: No cyanosis, clubbing. L knee swelling. PSYCH: Alert to person, otherwise confused - Constitutional Vitals: Temp Pulse Resp BP Pulse Ox 98.9 F 108 H 18 148/92 96 04/09/22 07:29 04/09/22 07:29 04/08/22 15:54 04/09/22 07:29 04/09/22 07:29 General appearance: Present: no acute distress, well-nourished, obese Results - Labs CBC & Chem 7: 04/08/22 08:34 04/09/22 05:34 Labs: Laboratory Last Values WBC 8.1 K/mm3 (4.5-11.0) 04/08/22 08:34 RBC 3.40 M/mm3 (3.65-5.03) L 04/08/22 08:34 Hgb 7.2 gm/dl (10.1-14.3) L 04/08/22 08:34 Hct 24.4 % (30.3-42.9) L 04/08/22 08:34 MCV 72 fl (79-97) L 04/08/22 08:34 MCH 21 pg (28-32) L 04/08/22 08:34 MCHC 29 % (30-34) L 04/08/22 08:34 RDW 18.7 % (13.2-15.2) H 04/08/22 08:34 Plt Count 291 K/mm3 (140-440) 04/08/22 08:34 Lymph % (Auto) 16.7 % (13.4-35.0) 04/02/22 18:06 [place] % (Auto) 7.8 % (0.0-7.3) H 04/02/22 18:06 Eos % (Auto) 0.7 % (0.0-4.3) 04/02/22 18:06 Baso % (Auto) 0.4 % (0.0-1.8) 04/02/22 18:06 Lymph # (Auto) 1.6 K/mm3 (1.2-5.4) 04/02/22 18:06 [place] # (Auto) 0.8 K/mm3 (0.0-0.8) 04/02/22 18:06 Eos # (Auto) 0.1 K/mm3 (0.0-0.4) 04/02/22 18:06 Baso # (Auto) 0.0 K/mm3 (0.0-0.1) 04/02/22 18:06 Seg Neutrophils % 74.4 % (40.0-70.0) H 04/02/22 18:06 Seg Neutrophils # 7.3 K/mm3 (1.8-7.7) 04/02/22 18:06 PT 17.0 Sec. (12.2-14.9) H 04/08/22 08:34 INR 1.23 (0.87-1.13) H 04/08/22 08:34 Sodium 132 mmol/L (137-145) L 04/09/22 05:34 Potassium 3.8 mmol/L (3.6-5.0) 04/09/22 05:34 Chloride 94.9 mmol/L (98-107) L 04/09/22 05:34 Carbon Dioxide 20 mmol/L (22-30) L 04/09/22 05:34 Anion Gap 21 mmol/L 04/09/22 05:34 BUN 26 mg/dL (7-17) H 04/09/22 05:34 Creatinine 1.0 mg/dL (0.6-1.2) 04/09/22 05:34 Estimated GFR > 60 ml/min 04/09/22 05:34 BUN/Creatinine Ratio 26 % 04/09/22 05:34 Glucose 137 mg/dL (65-100) H 04/09/22 05:34 POC Glucose 129 mg/dL (70-105) H 04/09/22 04:37 Calcium 9.2 mg/dL (8.4-10.2) 04/09/22 05:34 Total Bilirubin 0.30 mg/dL (0.1-1.2) 03/24/22 18:58 Direct Bilirubin < 0.2 mg/dL (0-0.2) 03/24/22 18:58 Indirect Bilirubin 0.1 mg/dL 03/24/22 18:58 AST 32 units/L (5-40) 03/24/22 18:58 ALT 16 units/L (7-56) 03/24/22 18:58 Alkaline Phosphatase 81 units/L (35-129) 03/24/22 18:58 Total Protein 6.8 g/dL (6.3-8.2) 03/24/22 18:58 Albumin 3.3 g/dL (3.9-5) L 03/24/22 18:58 Albumin/Globulin Ratio 0.9 % 03/24/22 18:58 Urine Color Colorless (Yellow) 03/24/22 Unknown Urine Turbidity Clear (Clear) 03/24/22 Unknown Urine pH 5.0 (5.0-7.0) 03/24/22 Unknown Ur Specific [place] 1.025 (1.003-1.030) 03/24/22 Unknown Urine Protein 30 mg/dl mg/dL (Negative) 03/24/22 Unknown Urine Glucose (UA) Negative mg/dL (Negative) 03/24/22 Unknown Urine Ketones Negative mg/dL (Negative) 03/24/22 Unknown Urine Blood Negative (Negative) 03/24/22 Unknown Urine Nitrite Negative (Negative) 03/24/22 Unknown Urine Bilirubin Negative (Negative) 03/24/22 Unknown Urine Urobilinogen 0.2 mg/dL (<2.0) 03/24/22 Unknown Ur Leukocyte Esterase 75 (Negative) 03/24/22 Unknown Urine WBC (Auto) < 1.0 /HPF (0.0-6.0) 03/24/22 Unknown Urine RBC (Auto) < 1.0 /HPF (0.0-6.0) 03/24/22 Unknown Urine Bacteria (Auto) 1+ /HPF (Negative) 03/24/22 Unknown Coronavirus (PCR) Negative (Negative) 04/02/22 11:00 [place]/IV: Voiding Method External Female Catheter Active Medications - Current Medications Current Medications: Generic Name Dose Route Start Last Admin Trade Name Freq PRN Reason Stop Dose Admin Acetaminophen 650 mg 03/25/22 00:47 04/04/22 21:16 Acetaminophen 325 Mg Tab PO 650 mg Q4H PRN Administration Pain MILD(1-3)/Fever >100.5/VILLANUEVA Amlodipine Besylate 10 mg 04/01/22 16:00 04/08/22 10:18 Amlodipine 10 Mg Tab PO Not Given QDAY SINCERE Clonidine HCl 0.1 mg 03/25/22 11:52 Clonidine 0.1 Mg Tab PO Q8H PRN SBP >/=170; DBP >/=110 Dextrose 50 ml 03/25/22 10:26 Dextrose 50% In Water (25gm) 50 Ml Syringe IV Q30MIN PRN Hypoglycemia Protocol Ferrous Sulfate 325 mg 03/26/22 10:00 04/08/22 10:18 Ferrous Sulfate 325 Mg Tab PO Not Given QDAY [facility] Heparin Sodium (Porcine) 5,000 unit 03/25/22 06:00 04/09/22 05:35 Heparin 5,000 Unit/1 Ml Vial SUB-Q 5,000 unit Q8HR SINCERE Administration Hydrochlorothiazide 50 mg 03/30/22 10:00 04/08/22 10:18 Hydrochlorothiazide 25 Mg Tab PO Not Given QDAY [facility] Hydrophilic Ointment 1 applic 04/08/22 14:00 Lip Therapy Vaseline TP DIRECT PRN Dry Lips Amiodarone HCl 900 mg/ 500 mls @ 8.333 mls/hr 04/07/22 14:00 04/07/22 14:04 Dextrose IV 0.25 mg/min DIRECT SINCERE 8.333 mls/hr Administration 0.25 MG/MIN Insulin Human Lispro 0 unit 03/26/22 17:00 04/09/22 05:31 Insulin Lispro 100 Unit/Ml SUB-Q Not Given Q6H [facility] Protocol Magnesium Hydroxide 30 ml 03/25/22 00:52 Magnesium Hydroxide (Mom) Oral Liqd Udc PO Q4H PRN Constipation Metformin HCl 500 mg 04/01/22 09:00 04/08/22 17:00 Metformin 500 Mg Tab PO Not Given BIDDIAB SINCERE Metoprolol Tartrate 100 mg 03/28/22 22:00 04/08/22 21:42 Metoprolol Tartrate 100 Mg Tab PO Not Given BID SINCERE Metoprolol Tartrate 5 mg 04/07/22 08:32 Metoprolol Tartrate 5 Mg/5 Ml Inj IV Q4H PRN Tachyarrhythmias Morphine Sulfate 2 mg 03/25/22 00:47 04/08/22 13:44 Morphine 2 Mg/1 Ml Inj IV 2 mg Q4H PRN Administration Pain, Moderate (4-6) Morphine Sulfate 4 mg 03/25/22 00:47 Morphine 4 Mg/1 Ml Inj IV Q4H PRN Pain , Severe (7-10) Ondansetron HCl 4 mg 03/25/22 00:47 Ondansetron 4 Mg/2 Ml Inj IV Q8H PRN Nausea And Vomiting Sodium Chloride 10 ml 03/25/22 10:00 04/08/22 21:42 Sodium Chloride 0.9% 10 Ml Flush Syringe IV 10 ml BID SINCERE Administration Sodium Chloride 10 ml 03/25/22 00:47 Sodium Chloride 0.9% 10 Ml Flush Syringe IV PRN PRN LINE FLUSH Nutrition/Malnutrition Assess - Dietary Evaluation Nutrition/Malnutrition Findings: Nutrition Notes Start: 03/26/22 11:41 Freq: Status: Active Protocol: Document 04/04/22 12:08 CELESTINO (Rec: 04/04/22 12:32 CELESTINO [id number]) Nutrition Notes Initial or Follow up Reassessment Current Diagnosis Diabetes,Hypertension Other Pertinent Diagnosis Metabolic Encephalopathy, Dysphagia, Atrial Fibrilation/ RVR, L-Knee Swell.. Current Diet Pureed Diet (since L 03/29), TF-Jevity 1.2 Chidi @ 60 ml/hr ( from D 03/26). Labs/Tests 04/04: BUN 41, Glu 218. Pertinent Medications 04/04: FeSO4, others nutritionally unremarkable. Height 5 ft 6 in Weight 83.6 kg [place] Body Weight (kg) 59.09 BMI 29.7 Weight change and time frame 2.6 Kg body weight loss reported in 1 week. Weight Status Overweight Subjective/Other Information RD consult for routine F/U on TF tolerance/continuation assessment. TF continues as prescribed, Pureed Diet was ordered since 03/29, but apparently Pt's PO intake continues to be Negligible; thus TF continues. PEG-tube placement has been recommended and family is considering it, but have not made a decision at the time, according to Progress notes. Pt is on Room Air, O2 saturation @ 99%, according to Physical Assessment History notes. Pt presents an unspecified area of concern for skin risk at the time, according to Physical Assessment History notes. Percent of energy/protein needs met: Prescribed Pureed Diet provides for energy/protein needs (1,804 Kcal/77 g) during LOS. Prescribed TF-Jevity 1.2 Chidi @ 60 ml/hr provides for energy/ protein needs (1,720 Kcal/80 g ) during LOS, 101% Kcal; 100% AA. Burn Absent Trauma Absent GI Symptoms None Food Allergy No Skin Integrity/Comment Unspecified area of concern. 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 Diagnosis Progress(for reassessment Continues documentation) Is patient on ventilator? No Is Patient Ambulatory and/or Out of Bed No REE-([facility]-confined to bed) 8948.330 Calculation Used for Recommendations [facility] Additional Notes Protein: 1-1.2 g/Kg AdjBW; 69- 83 g/day. Fluids: 1 ml/Kcal, or as per MD. Nutrition Intervention Change Diet Order: Continue Pureed Diet as tolerated. Nutrition Support: Continue TF-Jevity 1.2 Chidi @ 60 ml/hr. Flush: 100 ml water Q 4 hr, or as per MD. Kcal 1,720 Protein (gm) 80 Carbohydrates (gm) 243 Fat (gm) 56 Fluid (mL) 1,157 Fiber (gm) 26 % RDI: 101% Kcal; 100% AA. Goal #1 Provide at least 75% of energy /protein needs through Enteral Feeding during LOS. Goal #2 Adjust the dietary intervention to better serve Pt's needs and clinical conditions during LOS. Follow-Up By: 04/11/22 Additional Comments Continue monitoring food tolerance, %PO intake of meals , TF tolerance, and BM.
--- NOTE | 2022-04-09 12:58 | Progress Note ---
Assessment and Plan - Patient Problems (1) Paroxysmal atrial fibrillation Current Visit: Yes Status: Acute Plan to address problem: Continue rhythm control therapy as previously outlined. Patient is not a candidate for oral anticoagulation. Subjective Date of service: 04/09/22 Principal diagnosis: Altered mental status, rapid atrial fibrillation Interval history: Patient is comfortable no acute distress. 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 Objective Vital Signs Temp Pulse Resp BP Pulse Ox 04/09/22 11:39 98.3 F 106 H 158/95 97 04/09/22 07:29 98.9 F 108 H 148/92 96 04/09/22 03:38 104 H 96 04/09/22 03:37 104 H 133/87 96 04/08/22 22:00 98 04/08/22 19:37 98 H 148/89 98 04/08/22 15:54 97.8 F 97 H 18 127/77 98 - Physical Examination General: No Apparent Distress, Other (Patient appears lethargic and chronically ill obese) HEENT: Positive: EOMI Neck: Positive: neck supple Cardiac: Positive: Reg Rate and Rhythm Lungs: Positive: Decreased Breath Sounds Neuro: Positive: Weakness (Generalized lethargy) Abdomen: Positive: Soft (Obese) Skin: Positive: Clear Extremities: Absent: edema - Labs and Meds Comprehensive Metabolic Panel 04/09/22 Range/Units 05:34 Sodium 132 L (137-145) mmol/L Potassium 3.8 (3.6-5.0) mmol/L Chloride 94.9 L (98-107) mmol/L Carbon Dioxide 20 L (22-30) mmol/L BUN 26 H (7-17) mg/dL Creatinine 1.0 (0.6-1.2) mg/dL Glucose 137 H (65-100) mg/dL Calcium 9.2 (8.4-10.2) mg/dL
[2022-04-09] MEDS ORDERED: SODIUM CHLORIDE 0.9% 1000 ML 1,000 ML ONE (13:09)
[2022-04-09] MEDS ORDERED: ceFAZolin/Water 2 GM/20 ML 2 GM/20 ML SYRINGE IV ONE (13:11)
--- NOTE | 2022-04-09 13:24 | Anesthesia Consultation ---
Anesthesia Consult and Med Hx Date of service: 04/09/22 - Airway Anesthetic Teeth Evaluation: Poor (multiple missing teeth) ROM Head & Neck: Adequate Mental/Hyoid Distance: Adequate Mallampati Class: Class III Intubation Access Assessment: Possibly Difficult - Pre-Operative Health Status ASA Pre-Surgery Classification: ASA4 Proposed Anesthetic Plan: MAC - Cardiovascular System Hx Hypertension: Yes - Central Nervous System Hx Psychiatric Problems: Yes (dementia, schizophrenia) - Gastrointestinal Hx Gastroesophageal Reflux Disease: Yes (neurogenic dysphagea) - Endocrine Hx Non-Insulin Dependent Diabetes: Yes
--- NOTE | 2022-04-09 13:25 | Anesthesia Day of Surgery ---
Anesthesia Day of Surgery - Day of Surgery Patient Examined: Yes Patient H&P Reviewed: Yes Patient is NPO: Yes
[2022-04-09] MEDS ORDERED: LIDOCAINE MPF (2%) 20 MG/1 ML VIAL 5 ML ONE (13:26)
[2022-04-09] MEDS ORDERED: propofoL 200 MG/20 ML VIAL IV ONE (13:26)
--- NOTE | 2022-04-09 13:47 | Operative Report ---
Operative Report Operative Report: Date of procedure: 04/09/2022 Pre procedure diagnosis: Inability to swallow due to dementia Post procedure diagnosis: same Procedure: Esophagogastroduodenoscopy with percutaneous endoscopic gastrostomy Endoscopist: Faizan Cummins MD (Jenny) Medications: Per anesthesia- see separate records for details./ Ancef 2 gm IV Complications: none Estimated blood loss: None After careful discussion of the nature and purpose of the procedure, details of the technique, risks, benefits and alternatives consent was obtained from patient's family. The patient was placed in the left lateral decubitus position and medicated by anesthesia- see separate records for details. The tip of the olympus video upper scope was passed per orum under direct view through the mouth and into the esophagus, stomach and duodenum. The scope was advanced to the third portion of the duodenum without difficulty. The third portion and second portion of the duodenum were normal. The bulb revealed normal mucosa. The scope was withdrawn back into the stomach and the stomach gently insufflated with air. The antrum revealed multiple small nonbleeding erosions. The scope was then retroflexed and partially withdrawn to inspect the proximal stomach. The cardia, fundus and body were normal. The stomach was insufflated and a suitable gastrostomy site selected by transillumination and percutaneous compression demonstrating good opposition of the stomach and abdominal wall. The abdomen was prepped and draped in sterile fashion and 1% lidocaine instilled at the optimal site. A small incision was made and the tissue spread with sterile hemostats. The needle and catheter were inserted percutaneously into the stomach without difficulty under direct view. The needle was withdrawn followed by insertion of the guidewire through the catheter. The guidewire was grasped by the snare and positioned by withdrawal of the scope. A [employer] 20 gauge gastrostomy tube was pulled into place from the abdominal side of the wire to a snug fit at 3 cm on the skin. The external bumper was applied and the site again dressed in sterile fashion. The scope was then withdrawn in the forward view. The EG junction was at 40 cm. The esophagus revealed normal mucosa throughout. . The procedure was well tolerated and the patient was observed in the GI recovery unit. IMPRESSION: 1. Multiple nonbleeding erosions in the antrum. Biopsies obtained from antrum and body. 2. S/p Percutaneous Endoscopic gastrostomy. 3. Normal duodenum exam. Plan: 1. Can use PEG tube for meds in 4 hours and feeding in 6 hours. 2. Aspiration precautions. 3. Can do pureed diet per speech rec and continue to work with speech. Faizan Interianony) MD [facility]
--- NOTE | 2022-04-09 14:02 | Post Anesthesia Evaluation ---
- Post Anesthesia Evaluation Patient Participated: Yes Airway Patent: Yes Stable Respiratory Function: Yes Nausea/Vomiting: No Temp > 96.8F: Yes Pain Manageable: Yes Adequeate Hydration: Yes Anesthesia Complications: No
[2022-04-09] MEDS: MORPHINE 2 MG/1 ML INJ IV PRN (23:40)
[2022-04-10] MEDS: INSULIN LISPRO 100 UNIT/ML SUB-Q SCH ×3 (00:05→11:00)
[2022-04-10] MEDS: HEPARIN 5,000 UNIT/1 ML VIAL SUB-Q SCH ×2 (06:41→14:27)
[2022-04-10] MEDS: metFORMIN 500 MG TAB PO SCH (10:14)
[2022-04-10] MEDS: hydroCHLOROthiazide 25 MG TAB PO SCH (10:15)
[2022-04-10] MEDS: FERROUS SULFATE 325 MG TAB PO SCH (10:16)
[2022-04-10] MEDS: METOPROLOL TARTRATE 100 MG TAB PO SCH (10:16)
[2022-04-10] MEDS: amLODIPine 10 MG TAB PO SCH (10:16)
--- NOTE | 2022-04-10 11:46 | Progress Note ---
Assessment and Plan - Patient Problems (1) Paroxysmal atrial fibrillation Current Visit: Yes Status: Acute Plan to address problem: Continue rhythm control therapy as previously outlined. Patient is not a candidate for oral anticoagulation. Subjective Date of service: 04/10/22 Principal diagnosis: Altered mental status, rapid atrial fibrillation Interval history: Patient is comfortable no acute distress. On scowman, there is a stable sinus rhythm at 76. Objective Vital Signs Temp Pulse Resp BP Pulse Ox 04/10/22 10:16 86 116/66 04/10/22 07:45 98.7 F 86 116/66 95 04/10/22 03:29 98.0 F 88 20 114/63 92 04/09/22 22:59 98.8 F 104 H 18 132/74 98 04/09/22 22:23 95 H 04/09/22 22:00 97 04/09/22 19:18 97.8 F 95 H 20 152/85 91 04/09/22 16:16 98.3 F 111 H 158/90 97 04/09/22 14:08 110 H 20 108/77 98 04/09/22 13:58 108 H 20 109/73 97 04/09/22 13:53 108 H 17 98/65 100 04/09/22 13:48 97.6 F 108 H 19 101/68 100 04/09/22 12:57 99.8 F H 104 H 20 137/88 97 - Physical Examination General: No Apparent Distress, Cachectic HEENT: Positive: EOMI Neck: Positive: neck supple Cardiac: Positive: Reg Rate and Rhythm Lungs: Positive: Decreased Breath Sounds Neuro: Positive: Weakness (Generalized lethargy) Abdomen: Positive: Soft (Obese) Skin: Positive: Clear Extremities: Absent: edema
--- NOTE | 2022-04-10 12:07 | Discharge Summary ---
Providers - Providers Date of Admission: 03/25/22 00:49 Date of discharge: 04/10/22 Attending physician: NESTOR ORTIZ MD 03/25/22 02:45 Consult to Cardiology [CONS] Routine Consulting Provider: LAURA JACKSON Reason For Exam: A. fib with RVR 03/26/22 10:52 Consult to Dietitian/Nutrition [CONS] Routine Physician Instructions: Reason For Exam: Reason for Consult: Write/Manage Tube Feeding 03/26/22 14:48 Occupational Therapy Evaluate and Treat [CONS] Routine Comment: OT eval and treat Reason For Exam: debility Physical Therapy Evaluation and Treat [CONS] Routine Comment: PT eval and treat Reason For Exam: debility 03/27/22 07:39 Speech Therapy Evaluation and Treat [CONS] Routine Reason For Exam: History of decreased po intake 03/30/22 09:19 Consult to Physician [CONS] Routine Comment: Consulting Provider: SHERWIN ANTHONY Physician Instructions: Reason For Exam: Persistent encephalopathy 04/03/22 09:40 Speech Therapy Evaluation and Treat [CONS] Routine Reason For Exam: AMS 04/04/22 10:44 Consult to Physician [CONS] Routine Comment: Consulting Provider: ROSSI BROOKS Physician Instructions: Reason For Exam: possible PEG tube placement 04/09/22 11:09 Midline [Consult to PICC Line RN] [CONS] Routine Reason For Exam: difficult access Type Line:: Midline Primary care physician: BRIAN TOLENTINO Hospitalization Reason for admission: Acute metabolic encephalopathy Condition: Stable Pertinent studies: Reviewed. Procedures: PEG tube placement 04/09/2022 Hospital course: Patient is a 67-year-old female with past medical history of iron deficiency anemia, insulin-dependent type 2 diabetes mellitus, schizophrenia, dementia, and hypertension who presented to the ED from her [facility] due to concerns for acute metabolic encephalopathy. Upon arrival to the ED, the patient was hemodynamically stable with an elevated blood pressure 171/87. Patient later became tachycardic to 120s and found to be in atrial fibrillation with RVR, this prompted cardiology being consulted for further management. Patient was administered with IV diltiazem in the ED prior to being initiated on amiodarone and metoprolol for rate control. Patient was deemed to not be a candidate for oral anticoagulation given her severe anemia. The patient's acute metabolic encephalopathy continue to wax and wane despite discontinuation of all sedative inducing medications. Neurology was consulted for further management. Patient required NG tube placement due to her inability to safely swallow without risk for aspiration. Patient underwent PEG placement with gastroenterology on 04/09/2022. Patient is medically clear for discharge, and she will be returning to her [facility]. Disposition: 01 HOME / SELF CARE / HOMELESS Final Discharge Diagnosis (Prints w/discharge instructions): Acute metabolic encephalopathy, history of schizophrenia dementia, atrial fibrillation with RVR, fever, hypokalemia, volume depletion, possible dysphagia, microcytic anemia, hypertension, noninsulin-dependent type 2 diabetes mellitus, osteoarthritis, UTIruled out, obesity Time spent for discharge: 45 min Core Measure Documentation - Palliative Care Palliative Care/ Comfort Measures: Not Applicable - Core Measures Any of the following diagnoses?: none Exam - Constitutional Vitals: Temp Pulse Resp BP Pulse Ox 98.7 F 86 20 116/66 95 04/10/22 07:45 04/10/22 10:16 04/10/22 03:29 04/10/22 10:16 04/10/22 07:45 General appearance: Present: no acute distress, well-nourished - EENT Eyes: Present: PERRL, EOM intact ENT: hearing intact, clear oral mucosa, dentition normal - Neck Neck: Present: supple, normal ROM - Respiratory Respiratory effort: normal Respiratory: bilateral: CTA - Cardiovascular Rhythm: irregularly irregular Heart Sounds: Present: S1 & S2 - Extremities Extremities: no ischemia, pulses intact, pulses symmetrical, No edema, normal te mperature, normal color Peripheral Pulses: within normal limits - Abdominal General gastrointestinal: Present: soft, non-tender, non-distended, normal bowel sounds, other (PEG tube in place) Female genitourinary: Present: deferred - Rectal Rectal Exam: deferred - Integumentary Integumentary: Present: clear, warm, dry - Musculoskeletal Musculoskeletal: strength equal bilaterally - Psychiatric Psychiatric: appropriate mood/affect, cooperative - Neurologic Neurologic: CNII-XII intact - Allied Health Allied health notes reviewed: nursing Plan Activity: advance as tolerated Diet: low salt, other (Tube feeds) Additional Instructions: Patient is a 67-year-old female with past medical history of iron deficiency anemia, insulin-dependent type 2 diabetes mellitus, schizophrenia, dementia, and hypertension who presented to the ED from her f[facility] due to concerns for acute metabolic encephalopathy. Upon arrival to the ED, the patient was hemodynamically stable with an elevated blood pressure 171/87. Patient later became tachycardic to 120s and found to be in atrial fibrillation with RVR, this prompted cardiology being consulted for further management. Patient was administered with IV diltiazem in the ED prior to being initiated on amiodarone and metoprolol for rate control. Patient was deemed to not be a candidate for oral anticoagulation given her severe anemia. The patient's acute metabolic encephalopathy continue to wax and wane despite discontinuation of all sedative inducing medications. Neurology was consulted for further management. Patient required NG tube placement due to her inability to safely swallow without risk for aspiration. Patient underwent PEG placement with gastroenterology on 04/09/2022. Patient is medically clear for discharge, and she will be returning to her fdc. Care Plan Goals: Patient is medically clear for discharge. Assessment: Patient is a 67-year-old female with past medical history of iron deficiency anemia, insulin-dependent type 2 diabetes mellitus, schizophrenia, dementia, and hypertension who presented to the ED from her fdc due to concerns for acute metabolic encephalopathy. Upon arrival to the ED, the patient was hemodynamically stable with an elevated blood pressure 171/87. Patient later became tachycardic to 120s and found to be in atrial fibrillation with RVR, this prompted cardiology being consulted for further management. Patient was administered with IV diltiazem in the ED prior to being initiated on amiodarone and metoprolol for rate control. Patient was deemed to not be a candidate for oral anticoagulation given her severe anemia. The patient's acute metabolic encephalopathy continue to wax and wane despite discontinuation of all sedative inducing medications. Neurology was consulted for further management. Patient required NG tube placement due to her inability to safely swallow without risk for aspiration. Patient underwent PEG placement with gastroenterology on 04/09/2022. Patient is medically clear for discharge, and she will be returning to her [facility]. Follow up with: BRIAN TOLENTINO MD [Primary Care Provider] - 7 Days Prescriptions: amLODIPine 10 mg PO QDAY #30 tablet cloNIDine [Catapres] 0.1 mg PO Q8H PRN #30 tab PRN Reason: Hypertension Amiodarone [Cordarone 200 MG TAB] 200 mg PO BID #60 tablet Ferrous Sulfate [Feosol 325 MG tab] 325 mg PO QDAY #30 tablet metFORMIN [Glucophage] 500 mg PO BID #60 tab hydroCHLOROthiazide [HCTZ] 25 mg PO QDAY #30 tab Metoprolol [Lopressor TAB] 100 mg PO BID #60 tablet
[2022-04-10 15:51] VITALS: BP 117/65
[2022-04-10] MEDS ORDERED: SIMPLE SYRUP 15 ML FEEDTUBE PRN ×2 (16:25)
[2022-04-10] MEDS ORDERED: LIPASE 10,500/PROTEASE 25,000/AMYLASE 43,750 (UNITS) DR CAP FEEDTUBE PRN (16:25)
[2022-04-10] MEDS ORDERED: SODIUM BICARBONATE 325 MG TAB FEEDTUBE PRN (16:25)
--- NOTE | 2022-04-10 19:09 | Gastroenterology Progress Note ---
Assessment and Plan # Dementia # h/o Schizophrenia # Failure to thrive - s/p EGD/PEG on 04/09/2022 - tolerating tube feeds - PEG tube bumper loosened by bedside today. - continue with aspiration precautions. - will sign off. - Patient Problems (1) Neurogenic dysphagia Status: Acute Subjective Date of service: 04/10/22 Principal diagnosis: Altered mental status, rapid atrial fibrillation Interval history: Patient tolerating tube feeds well. No nausea vomiting. Objective - Constitutional Vitals: Temp Pulse Resp BP Pulse Ox 98.6 F 81 20 117/65 95 04/10/22 15:44 04/10/22 15:44 04/10/22 03:29 04/10/22 15:44 04/10/22 15:44 General appearance: no acute distress - EENT Eyes: EOM intact ENT: hearing intact - Neck Neck: supple - Cardiovascular Rhythm: regular Heart Sounds: Present: S1 & S2 - Gastrointestinal General gastrointestinal: Present: soft, non-tender, non-distended - Neurologic Neurological: disoriented - Labs CBC & Chem 7: 04/08/22 08:34 04/09/22 05:34 Labs: Laboratory Results - last 24 hr 04/09/22 04/10/22 04/10/22 22:58 05:29 11:25 POC Glucose 134 H 114 H 132 H SARS-CoV-2 (PCR) 04/10/22 04/10/22 12:21 18:25 POC Glucose 157 H SARS-CoV-2 (PCR) Negative
[2022-04-10] MEDS ORDERED: AMIODARONE 200 MG TAB PO SCH (22:00)
== END 2022-04-10 18:43 | DRG 640 ==
LOC: ED 17:44 → 4A 03-25 00:49
PROVIDERS: ADMIT Internal Medicine Geriatric Medicine; ATTEND Student in an Organized Health Care Education/Training Program
PROC: 0DH63UZ Insertion of Feeding Device into Stomach, Percutaneous Approach (ICD-10-PCS; principal; 2022-04-09)
PROC: 0DB68ZX Excision of Stomach, Via Natural or Artificial Opening Endoscopic, Diagnostic (ICD-10-PCS; 2022-04-09)
DX: E87.6 Hypokalemia (principal); G93.41 Metabolic encephalopathy; E86.9 Volume depletion, unspecified; Z71.3 Dietary counseling and surveillance; E86.0 Dehydration; Z20.822 Contact with and (suspected) exposure to COVID-19; I48.0 Paroxysmal atrial fibrillation; F03.90 Unspecified dementia, unspecified severity, without behavioral disturbance, psychotic disturbance, mood disturbance, and anxiety; D64.9 Anemia, unspecified; M17.12 Unilateral primary osteoarthritis, left knee; E66.9 Obesity, unspecified; E11.9 Type 2 diabetes mellitus without complications; F25.9 Schizoaffective disorder, unspecified; R62.7 Adult failure to thrive; Z68.31 Body mass index [BMI] 31.0-31.9, adult; R13.19 Other dysphagia; Z79.4 Long term (current) use of insulin
CPT/HCPCS: 36415; 70450; 70553; 71045; 74018; 80048; 80076; 81001; 82962; 85025; 85027; 85610; 87040; 88305; 88342; 93005; 93306; G0378; J3490; J7060; Q9967; A9575; C8929; J0282; J0360; J0690; J1644; J1815; J1885; J2270; J2704; J7030; J7070; U0003